=== PATIENT | male | born 1975 | race Hispanic/Latino ===

== ENCOUNTER 2018-04-23 02:28 | Inpatient (IN) | payer OTHER, SELFPAY ==
[2018-04-23] MEDS ORDERED: MORPHINE IV ONE (03:33)
[2018-04-23] MEDS ORDERED: ATROVENT IH ONE (03:33)
[2018-04-23] MEDS ORDERED: ZOFRAN IV ONE (03:33)
[2018-04-23] MEDS ORDERED: SOLU-Medrol IV ONE (03:33)
[2018-04-23] MEDS ORDERED: PROVENTIL IH ONE ×2 (03:33→05:23)
[2018-04-23] MEDS ORDERED: MAGNESIUM SULFATE 2GM/50ML 2 GM/50 ML BAG IV ONE (03:35)
[2018-04-23] MEDS ORDERED: PEPCID IV ONE (03:35)
[2018-04-23] MEDS ORDERED: TORADOL IV ONE (03:35)
--- NOTE | 2018-04-23 03:45 | XRay Report ---
FINAL REPORT PROCEDURE: XR CHEST 1V AP TECHNIQUE: Chest radiograph anteroposterior view. CPT 35808 HISTORY: sob,cough COMPARISON: No prior studies are available for comparison. FINDINGS: Heart: Normal. Mediastinum/Vessels: Normal. Lungs/Pleural space: Normal. Bony thorax: No acute osseous abnormality. Life support devices: None. IMPRESSION: No acute cardiopulmonary abnormality.
[2018-04-23 03:54] LABS: Basophils # (Auto) 0.1 K/mm3 (0.0-0.1); Basophils % (Auto) 0.9 % (0.0-1.8); Eosinophils # (Auto) 0.2 K/mm3 (0.0-0.4); Eosinophils % (Auto) 2.9 % (0.0-4.3); Hemoglobin 15.7 gm/dl (11.8-15.2); Lymphocytes % (Auto) 28.8 % (13.4-35.0); Mean Corpuscular HGB Conc 34 % (32-34); Mean Corpuscular Volume 95 fl (84-94); Monocytes # (Auto) 0.6 K/mm3 (0.0-0.8); Monocytes % (Auto) 9.2 % (0.0-7.3); Platelet Count 215 K/mm3 (140-440); Red Blood Count 4.85 M/mm3 (3.65-5.03); Red Cell Distribution Width 14.2 % (13.2-15.2)
[2018-04-23 04:04] LABS: INR 0.98 (0.87-1.13)
--- NOTE | 2018-04-23 04:31 | Emergency Department Report ---
ED Shortness of Breath HPI - General Chief Complaint: Dyspnea/Respdistress Stated Complaint: BRIANA Time Seen by Provider: 04/23/18 03:29 Source: patient, EMS, old records reviewed Mode of arrival: Stretcher Limitations: Physical Limitation - History of Present Illness Initial Comments: 43-year-old male with a past medical history of morbid obesity and hypertension presents to the Hospital complaining of coughing up green sputum last 2 days. Positive intermittent wheezing and shortness of breath. Patient complains of mid constant chest pressure radiating to his back. Patient has had similar symptoms in the past related to bronchitis and denies a history of asthma and COPD. He does smoke cigarettes. Upon EMS arrival he was satting 88-90% on room air. Saturation increased to 94% with 4 L nasal cannula he received albuterol nebulizer in route. Patient denies recent travel, calf tenderness, or unilateral leg edema. PMD: [facility] - Related Data Previous Rx's Medication Instructions Recorded Last Taken Type Pravastatin Sodium [Pravastatin] 10 mg PO QHS #30 tablet 09/26/13 Unknown Rx RX: Aspirin [Aspirin TAB] 325 mg PO QDAY #30 tablet 09/26/13 Unknown Rx RX: Famotidine [Pepcid] 20 mg PO BID #60 tablet 09/26/13 Unknown Rx RX: Lisinopril [Zestril TAB] 10 mg PO QDAY #30 tablet 09/26/13 04/22/18 Rx RX: Metoprolol [Lopressor TAB] 50 mg PO BID #60 tablet 09/26/13 04/22/18 Rx RX: amLODIPine [Norvasc] 5 mg PO QDAY #30 tablet 09/26/13 Unknown Rx Allergies Allergy/AdvReac Type Severity Reaction Status Date / Time Iodinated Contrast- Oral and Allergy Rash Verified 09/24/13 21:15 IV Dye ED Review of Systems ROS: Stated complaint: BRIANA Other details as noted in HPI Comment: All other systems reviewed and negative ED Past Medical Hx - Past Medical History Hx Hypertension: Yes Hx Congestive Heart Failure: No Hx Diabetes: No Hx Asthma: No Hx COPD: No - Surgical History Past Surgical History?: No - Social History Smoking Status: Current Every Day Smoker Substance Use Type: Alcohol - Medications Home Medications: Home Medications Medication Instructions Recorded Confirmed Last Taken Type Pravastatin Sodium [Pravastatin] 10 mg PO QHS #30 tablet 09/26/13 04/23/18 Unknown Rx RX: Aspirin [Aspirin TAB] 325 mg PO QDAY #30 tablet 09/26/13 04/23/18 Unknown Rx RX: Famotidine [Pepcid] 20 mg PO BID #60 tablet 09/26/13 04/23/18 Unknown Rx RX: Lisinopril [Zestril TAB] 10 mg PO QDAY #30 tablet 09/26/13 04/23/18 04/22/18 Rx RX: Metoprolol [Lopressor TAB] 50 mg PO BID #60 tablet 09/26/13 04/23/18 04/22/18 Rx RX: amLODIPine [Norvasc] 5 mg PO QDAY #30 tablet 09/26/13 04/23/18 Unknown Rx ED Physical Exam - General Limitations: Physical Limitation - Other Other exam information: General: No limitations, patient is alert in no acute distress Head exam: Atraumatic, normocephalic Eyes exam: Normal appearance, pupils equal reactive to light, extraocular movements intact ENT: Moist mucous membrane, normal oropharynx Neck exam: Normal inspection, full range of motion, no meningismus nontender Respiratory exam: Frequent coughing. Bilateral wheezing. Tachypnea without accessory muscle use Cardiovascular: Normal rate and rhythm, normal heart sounds Abdomen: Soft, nondistended, and nontender, with normal bowel sounds, no sumeet ound, or guarding Extremity: Full range of motion normal inspection no deformity, no calf tenderness or edema Back: Normal Inspection, full range of motion, no tenderness Neurologic: Alert, oriented x3, cranial nerves intact, no motor or sensory deficit Psychiatric: normal affect, normal mood Skin: Warm, dry, intact ED Course Vital Signs 04/23/18 04/23/18 04/23/18 02:43 02:46 02:48 Temperature 98 F Pulse Rate 98 H 94 H Pulse Rate [ Anterior Bilateral Throughout] Respiratory 15 Rate Respiratory Rate [Anterior Bilateral Throughout] Blood Pressure 113/53 O2 Sat by Pulse 94 93 94 Oximetry 04/23/18 04/23/18 04/23/18 02:57 03:00 03:15 Temperature Pulse Rate 89 92 H Pulse Rate [ Anterior Bilateral Throughout] Respiratory 26 H 20 22 Rate Respiratory Rate [Anterior Bilateral Throughout] Blood Pressure 108/55 116/63 O2 Sat by Pulse 94 92 Oximetry 04/23/18 04/23/18 04/23/18 03:30 03:45 04:00 Temperature Pulse Rate 93 H 91 H 90 Pulse Rate [ Anterior Bilateral Throughout] Respiratory 21 20 23 Rate Respiratory Rate [Anterior Bilateral Throughout] Blood Pressure 112/56 O2 Sat by Pulse Oximetry 04/23/18 04/23/18 04/23/18 04:13 04:16 04:30 Temperature Pulse Rate 96 H 95 H Pulse Rate [ 92 H Anterior Bilateral Throughout] Respiratory 18 Rate Respiratory 17 Rate [Anterior Bilateral Throughout] Blood Pressure 109/52 O2 Sat by Pulse 94 Oximetry 04/23/18 04/23/18 04/23/18 04:45 05:00 05:16 Temperature Pulse Rate 87 88 96 H Pulse Rate [ 95 H Anterior Bilateral Throughout] Respiratory 19 18 16 Rate Respiratory 20 Rate [Anterior Bilateral Throughout] Blood Pressure 120/63 120/63 110/51 O2 Sat by Pulse 93 92 86 Oximetry 04/23/18 04/23/18 04/23/18 05:30 05:45 06:00 Temperature Pulse Rate 97 H 86 93 H Pulse Rate [ Anterior Bilateral Throughout] Respiratory 22 16 24 Rate Respiratory Rate [Anterior Bilateral Throughout] Blood Pressure 103/70 110/55 102/53 O2 Sat by Pulse Oximetry 04/23/18 04/23/18 04/23/18 06:10 06:20 06:30 Temperature Pulse Rate 93 H 85 94 H Pulse Rate [ Anterior Bilateral Throughout] Respiratory 25 H 16 17 Rate Respiratory Rate [Anterior Bilateral Throughout] Blood Pressure 102/53 96/41 96/41 O2 Sat by Pulse Oximetry 04/23/18 04/23/18 04/23/18 06:40 06:49 06:50 Temperature Pulse Rate 88 92 H Pulse Rate [ 90 Anterior Bilateral Throughout] Respiratory 20 16 Rate Respiratory 17 Rate [Anterior Bilateral Throughout] Blood Pressure 116/56 117/44 O2 Sat by Pulse Oximetry 04/23/18 04/23/18 04/23/18 07:00 07:10 07:20 Temperature Pulse Rate 91 H 93 H 99 H Pulse Rate [ Anterior Bilateral Throughout] Respiratory Rate Respiratory Rate [Anterior Bilateral Throughout] Blood Pressure 117/44 96/41 96/41 O2 Sat by Pulse Oximetry 04/23/18 04/23/18 04/23/18 07:30 07:40 07:50 Temperature Pulse Rate 99 H 92 H Pulse Rate [ Anterior Bilateral Throughout] Respiratory Rate Respiratory Rate [Anterior Bilateral Throughout] Blood Pressure 96/41 117/44 117/44 O2 Sat by Pulse Oximetry 04/23/18 04/23/18 04/23/18 08:00 08:10 08:20 Temperature Pulse Rate 101 H 103 H 99 H Pulse Rate [ Anterior Bilateral Throughout] Respiratory Rate Respiratory Rate [Anterior Bilateral Throughout] Blood Pressure 117/44 117/44 117/44 O2 Sat by Pulse Oximetry 04/23/18 08:30 Temperature Pulse Rate 97 H Pulse Rate [ Anterior Bilateral Throughout] Respiratory Rate Respiratory Rate [Anterior Bilateral Throughout] Blood Pressure 117/44 O2 Sat by Pulse 99 Oximetry ED Medical Decision Making - Lab Data Result diagrams: 04/23/18 03:38 04/23/18 03:38 Lab Results 04/23/18 04/23/18 04/23/18 Range/Units 03:38 03:38 03:38 WBC 6.9 (4.5-11.0) K/mm3 RBC 4.85 (3.65-5.03) M/mm3 Hgb 15.7 H (11.8-15.2) gm/dl Hct 46.0 H (35.5-45.6) % MCV 95 H (84-94) fl MCH 32 (28-32) pg MCHC 34 (32-34) % RDW 14.2 (13.2-15.2) % Plt Count 215 (140-440) K/mm3 Lymph % (Auto) 28.8 (13.4-35.0) % [place] % (Auto) 9.2 H (0.0-7.3) % Eos % (Auto) 2.9 (0.0-4.3) % Baso % (Auto) 0.9 (0.0-1.8) % Lymph # 2.0 (1.2-5.4) K/mm3 [place] # 0.6 (0.0-0.8) K/mm3 Eos # 0.2 (0.0-0.4) K/mm3 Baso # 0.1 (0.0-0.1) K/mm3 Seg Neutrophils % 58.2 (40.0-70.0) % Seg Neutrophils # 4.0 (1.8-7.7) K/mm3 PT 13.4 (12.2-14.9) Sec. INR 0.98 (0.87-1.13) Sodium (137-145) mmol/L Potassium (3.6-5.0) mmol/L Chloride (98-107) mmol/L Carbon Dioxide (22-30) mmol/L Anion Gap mmol/L BUN (9-20) mg/dL Creatinine (0.8-1.5) mg/dL Estimated GFR ml/min BUN/Creatinine Ratio % Glucose (75-100) mg/dL Calcium (8.4-10.2) mg/dL Total Creatine Kinase 267 H (55-170) units/L CK-MB (CK-2) 7.0 H (0.0-4.0) ng/mL CK-MB (CK-2) Rel Index 2.6 (0-4) Troponin T < 0.010 (0.00-0.029) ng/mL NT-Pro-B Natriuret Pep 124.8 (0-450) pg/mL 04/23/18 Range/Units 03:38 WBC (4.5-11.0) K/mm3 RBC (3.65-5.03) M/mm3 Hgb (11.8-15.2) gm/dl Hct (35.5-45.6) % MCV (84-94) fl MCH (28-32) pg MCHC (32-34) % RDW (13.2-15.2) % Plt Count (140-440) K/mm3 Lymph % (Auto) (13.4-35.0) % [place] % (Auto) (0.0-7.3) % Eos % (Auto) (0.0-4.3) % Baso % (Auto) (0.0-1.8) % Lymph # (1.2-5.4) K/mm3 [place] # (0.0-0.8) K/mm3 Eos # (0.0-0.4) K/mm3 Baso # (0.0-0.1) K/mm3 Seg Neutrophils % (40.0-70.0) % Seg Neutrophils # (1.8-7.7) K/mm3 PT (12.2-14.9) Sec. INR (0.87-1.13) Sodium 128 L (137-145) mmol/L Potassium 4.4 (3.6-5.0) mmol/L Chloride 90.9 L (98-107) mmol/L Carbon Dioxide 24 (22-30) mmol/L Anion Gap 18 mmol/L BUN 8 L (9-20) mg/dL Creatinine 0.7 L (0.8-1.5) mg/dL Estimated GFR > 60 ml/min BUN/Creatinine Ratio 11 % Glucose 124 H (75-100) mg/dL Calcium 9.2 (8.4-10.2) mg/dL Total Creatine Kinase (55-170) units/L CK-MB (CK-2) (0.0-4.0) ng/mL CK-MB (CK-2) Rel Index (0-4) Troponin T (0.00-0.029) ng/mL NT-Pro-B Natriuret Pep (0-450) pg/mL - EKG Data -: EKG Interpreted by Ak EKG shows normal: sinus rhythm, axis (qrs 69), QRS complexes (qrsd 105), ST-T waves (no stemi) Rate: normal (93) - EKG Data When compared to previous EKG there are: no significant change - Radiology Data Radiology results: report reviewed (cxr: naf) - Medical Decision Making Patient continues to have desaturation once he is off oxygen despite receiving medications. He will be admitted to the hospital for acute bronchitis with hypoxia. - Differential Diagnosis pneumonia, bronchitis, CHF, COPD Critical Care Time: No Critical care attestation.: If time is entered above; I have spent that time in minutes in the direct care of this critically ill patient, excluding procedure time. ED Disposition Clinical Impression: Acute bronchitis, Hypoxia Disposition: OP ADMIT IP TO THIS HOSP Is pt being admited?: No Does the pt Need Aspirin: No Condition: Stable Time of Disposition: 05:25 (Dr Gifford/hosp)
[2018-04-23] MEDS ORDERED: NACL 0.9% 500 ML 500 ML IV ONE (04:39)
[2018-04-23 05:36] LABS: BUN/Creatinine Ratio 11; Blood Urea Nitrogen 8 mg/dL (9-20); Calcium 9.2 mg/dL (8.4-10.2); Hemolysis Index 10
[2018-04-23] MEDS ORDERED: SODIUM CHLORIDE FLUSH SYRINGE 10 ML IV PRN (06:16)
[2018-04-23] MEDS ORDERED: TYLENOL PO PRN (06:16)
[2018-04-23] MEDS ORDERED: ZOFRAN IV PRN (06:16)
--- NOTE | 2018-04-23 06:28 | History and Physical Report ---
History of Present Illness Date of examination: 04/23/18 History of present illness: 42-year-old man with a history of hypertension, morbid obesity, emergency room visits or shortness of breath 2 days. He complains of cough productive of green phlegm, wheezing. Also complaining of chest pain in the epigastric area which he describes a pressure-like sensation, intermittent, unable to say how long it lasts for, radiating to the back, intensity 5/10, worse with coughing. Admits to diaphoresis, no nausea vomiting, palpitation Review of systems Constitutional: no weight loss, chills, fever Ears, eyes, nose, mouth and throat: no nasal congestion, no nasal discharge, no sinus pressure, no vision change, no red eye. Neck: No neck pain or rigidity. Cardiovascular: no palpitations, chest pain Respiratory: +cough, shortness of breath Gastrointestinal: no hematochezia, abdominal pain Genitourinary : no frequency , no hematuria Musculoskeletal: no joint swelling or muscle ache Integumentary: no rash, no pruritis Neurological: no parathesias, no focal weakness Endocrine: no cold or heat intolerance, no polyuria or polydipsia Hematologic/Lymphatic: no easy bruising, no easy bleeding, no gland swelling Allergic/Immunologic: no urticaria, no angioedema. PAST MEDICAL HISTORY:hypertension, morbid obesity PAST SURGICAL HISTORY: None SOCIAL HISTORY: Denies alcohol, drugs, smoke 2 packs a day FAMILY HISTORY: Hypertension Medications and Allergies Allergies Allergy/AdvReac Type Severity Reaction Status Date / Time Iodinated Contrast- Oral and Allergy Rash Verified 09/24/13 21:15 IV Dye Home Medications Medication Instructions Recorded Confirmed Last Taken Type RX: Aspirin [Aspirin TAB] 325 mg PO QDAY #30 tablet 09/26/13 04/23/18 Unknown Rx RX: Famotidine [Pepcid] 20 mg PO BID #60 tablet 09/26/13 04/23/18 Unknown Rx RX: Lisinopril [Zestril TAB] 10 mg PO QDAY #30 tablet 09/26/13 04/23/18 04/22/18 Rx RX: Pravastatin Sodium 10 mg PO QHS #30 tablet 09/26/13 04/23/18 Unknown Rx [Pravastatin] RX: amLODIPine [Norvasc] 5 mg PO QDAY #30 tablet 09/26/13 04/23/18 Unknown Rx Prednisone [predniSONE 10 mg 10 mg PO .TAPER #1 tab.ds.pk 04/25/18 Unknown Rx (6-Day Pack, 21 Tabs)] RX: ALBUTEROL Inhaler(NF) 2 puff IH QID PRN #1 inha 04/25/18 Unknown Rx [VENTOLIN Inhaler(NF)] RX: Benzonatate [Tessalon Perles] 100 mg PO Q8HR #30 capsule 04/25/18 Unknown Rx RX: Nicotine [Habitrol] 21 mg TD QDAY #30 patch 04/25/18 Unknown Rx Active Meds: Active Medications Acetaminophen (Tylenol) 650 mg PO Q4H PRN PRN Reason: Pain MILD(1-3)/Fever >100.5/MERAZ Albuterol/Ipratropium (Duoneb *Not For Prn Use*) 1 ampul IH Q6HRT [facility] Enoxaparin Sodium (Lovenox) 30 mg SUB-Q QDAY [facility] Methylprednisolone Sodium Succinate (Solu-Medrol) 125 mg IV Q6H [facility] Ondansetron HCl (Zofran) 4 mg IV Q8H PRN PRN Reason: Nausea And Vomiting Sodium Chloride (Sodium Chloride Flush Syringe 10 Ml) 10 ml IV BID S[facility]IAGO Sodium Chloride (Sodium Chloride Flush Syringe 10 Ml) 10 ml IV PRN PRN PRN Reason: LINE FLUSH Exam - Physical Exam Narrative exam: General Apperance: The patient lying in bed, breathing comfortable HEENT: Normocephalic, atraumatic. Pupils equally round and reactive to light, EOMI, no sclericterus or JVD or thyromegaly or nodule. , no carotid bruit, mucous membranes moist, no exudate or erythema Heart: S1-S2, regular is rhythm Lungs: Wheezing bilaterally, breathing comfortable Abdomen: Positive bowel sounds, soft, nontender, nondistended, no organomegaly Extremities: No edema cyanosis clubbing Skin: no rash, nodule, warm and dry Neuro: cranial nerves 2-12 intact, speech is fluent, motor/sensory intact - Constitutional Vitals: Temp Pulse Resp BP Pulse Ox 98 F 86 16 110/55 86 04/23/18 02:48 04/23/18 05:45 04/23/18 05:45 04/23/18 05:45 04/23/18 05:16 Results - Labs CBC & Chem 7: 04/25/18 05:25 04/25/18 05:25 Labs: Abnormal lab results 04/23/18 04/23/18 04/23/18 Range/Units 03:38 03:38 03:38 Hgb 15.7 H (11.8-15.2) gm/dl Hct 46.0 H (35.5-45.6) % MCV 95 H (84-94) fl [place] % (Auto) 9.2 H (0.0-7.3) % Sodium 128 L (137-145) mmol/L Chloride 90.9 L (98-107) mmol/L BUN 8 L (9-20) mg/dL Creatinine 0.7 L (0.8-1.5) mg/dL Glucose 124 H (75-100) mg/dL Total Creatine Kinase 267 H (55-170) units/L CK-MB (CK-2) 7.0 H (0.0-4.0) ng/mL - Imaging and Cardiology EKG: image reviewed Chest x-ray: report reviewed Assessment and Plan Assessment Acute bronchitis Hyponatremia Chest pain Morbid morbid obesity Plan Admit to medicine High-dose steroids, breathing treatments, Zithromax Cardiac enzymes, stress test DVT prophylaxis
[2018-04-23 07:06] LABS: Creatine Kinase MB 6.2 ng/mL (0.0-4.0)
--- NOTE | 2018-04-23 07:38 | Progress Note ---
Assessment and Plan Assessment and plan: Patient is a Patient is a 42-year-old man with a history of hypertension, dyslipidemia, morbid obesity and Tobacco dependency who presents this morning to [facility] ED with SOB x 2 days. 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 Follow-up on current diagnosis of SOB and chest pains. Chest pains is due to excessive coughing, Overnight uneventful. Patient denies any nausea/vomiting or severe headaches. Imaging, nursing note, chart, labs and old chart reviewed. Discussed with patient. Hospitalist Physical - Physical exam Narrative exam: Gen: Morbid Obese, bmi 49.5Cushingoid vs blue bloater appearance, ill appearing, on VM 50%, NAD, Awake, Alert, Orientated x 3 HEENT: NCAT, EOMI, PERRL, OP Clear Neck: supple, no adenopathy, no thyromegaly, no JVD CVS/Heart: RRR, normal S1S2, pulses present bilaterally Chest/Lungs: diminished bs bilateral, Symmetrical chest expansion, good air entry bilaterally, reproducible substernal cw tenderness GI/Abdomen: soft, abd striae, NTND, good bowel sounds, no guarding or rebound /Bladder: no suprapubic tenderness, no CVA or paraspinal tenderness Extermity/Skin: no c/c/e, no obvious rash MSK: FROM x 4 Neuro: CN 2-12 grossly intact, no new focal deficits Psych: calm - Constitutional Vitals: Temp Pulse Resp BP Pulse Ox 98 F 90 17 110/55 86 04/23/18 02:48 04/23/18 06:49 04/23/18 06:49 04/23/18 05:45 04/23/18 05:16 Results - Labs CBC & Chem 7: 04/23/18 03:38 04/23/18 03:38 Labs: Laboratory Last Values WBC 6.9 K/mm3 (4.5-11.0) 04/23/18 03:38 RBC 4.85 M/mm3 (3.65-5.03) 04/23/18 03:38 Hgb 15.7 gm/dl (11.8-15.2) H 04/23/18 03:38 Hct 46.0 % (35.5-45.6) H 04/23/18 03:38 MCV 95 fl (84-94) H 04/23/18 03:38 MCH 32 pg (28-32) 04/23/18 03:38 MCHC 34 % (32-34) 04/23/18 03:38 RDW 14.2 % (13.2-15.2) 04/23/18 03:38 Plt Count 215 K/mm3 (140-440) 04/23/18 03:38 Lymph % (Auto) 28.8 % (13.4-35.0) 04/23/18 03:38 [place] % (Auto) 9.2 % (0.0-7.3) H 04/23/18 03:38 Eos % (Auto) 2.9 % (0.0-4.3) 04/23/18 03:38 Baso % (Auto) 0.9 % (0.0-1.8) 04/23/18 03:38 Lymph # 2.0 K/mm3 (1.2-5.4) 04/23/18 03:38 [place] # 0.6 K/mm3 (0.0-0.8) 04/23/18 03:38 Eos # 0.2 K/mm3 (0.0-0.4) 04/23/18 03:38 Baso # 0.1 K/mm3 (0.0-0.1) 04/23/18 03:38 Seg Neutrophils % 58.2 % (40.0-70.0) 04/23/18 03:38 Seg Neutrophils # 4.0 K/mm3 (1.8-7.7) 04/23/18 03:38 PT 13.4 Sec. (12.2-14.9) 04/23/18 03:38 INR 0.98 (0.87-1.13) 04/23/18 03:38 Sodium 128 mmol/L (137-145) L 04/23/18 03:38 Potassium 4.4 mmol/L (3.6-5.0) 04/23/18 03:38 Chloride 90.9 mmol/L (98-107) L 04/23/18 03:38 Carbon Dioxide 24 mmol/L (22-30) 04/23/18 03:38 Anion Gap 18 mmol/L 04/23/18 03:38 BUN 8 mg/dL (9-20) L 04/23/18 03:38 Creatinine 0.7 mg/dL (0.8-1.5) L 04/23/18 03:38 Estimated GFR > 60 ml/min 04/23/18 03:38 BUN/Creatinine Ratio 11 % 04/23/18 03:38 Glucose 124 mg/dL (75-100) H 04/23/18 03:38 Calcium 9.2 mg/dL (8.4-10.2) 04/23/18 03:38 Total Creatine Kinase 267 units/L (55-170) H 04/23/18 03:38 CK-MB (CK-2) 6.2 ng/mL (0.0-4.0) H 04/23/18 06:36 CK-MB (CK-2) Rel Index 2.6 (0-4) 04/23/18 03:38 Troponin T < 0.010 ng/mL (0.00-0.029) 04/23/18 06:36 NT-Pro-B Natriuret Pep 124.8 pg/mL (0-450) 04/23/18 03:38
[2018-04-23] MEDS ORDERED: DUONEB *Not for PRN Use IH ONE (07:47)
[2018-04-23] MEDS: DUONEB *Not for PRN Use IH SCH ×3 (07:53→20:51)
--- NOTE | 2018-04-23 08:25 | Consultation ---
History of Present Illness - Reason for Consult Consult date: 04/23/18 hyponatremia Requesting physician: MONE EL - History of Present Illness 42-year-old man with a history of hypertension, morbid obesity, emergency room visits or shortness of breath 2 days. He complains of cough productive of green phlegm, wheezing. Also complaining of chest pain in the epigastric area which he describes a pressure-like sensation, intermittent, unable to sell along the lesser, radiating to the back, intensity 5/10, worse with coughing. Admits to diaphoresis, no nausea vomiting, palpitation. Consult requested because of hyponatremia Past History Past Medical History: COPD, hypertension Past Surgical History: No surgical history Social history: other (patient is a smoker) Family history: no significant family history Medications and Allergies Allergies Allergy/AdvReac Type Severity Reaction Status Date / Time Iodinated Contrast- Oral and Allergy Rash Verified 09/24/13 21:15 IV Dye Home Medications Medication Instructions Recorded Confirmed Last Taken Type Aspirin [Aspirin TAB] 325 mg PO QDAY #30 tablet 09/26/13 04/23/18 Unknown Rx Famotidine [Pepcid] 20 mg PO BID #60 tablet 09/26/13 04/23/18 Unknown Rx Lisinopril [Zestril TAB] 10 mg PO QDAY #30 tablet 09/26/13 04/23/18 04/22/18 Rx Metoprolol [Lopressor TAB] 50 mg PO BID #60 tablet 09/26/13 04/23/18 04/22/18 Rx Pravastatin Sodium [Pravastatin] 10 mg PO QHS #30 tablet 09/26/13 04/23/18 Unknown Rx amLODIPine [Norvasc] 5 mg PO QDAY #30 tablet 09/26/13 04/23/18 Unknown Rx Active Meds: Active Medications Acetaminophen (Tylenol) 650 mg PO Q4H PRN PRN Reason: Pain MILD(1-3)/Fever >100.5/MERAZ Albuterol/Ipratropium (Duoneb *Not For Prn Use*) 1 ampul IH Q6HRT [facility] Last Admin: 04/23/18 07:53 Dose: Not Given Documented by: Benzonatate (Tessalon Perles) 100 mg PO Q8HR [facility] Enoxaparin Sodium (Lovenox) 40 mg SUB-Q QDAY@1000 S[facility]O Sodium Chloride (Nacl 0.9% 1000 Ml) 1,000 mls @ 75 mls/hr IV DIRECT [facility]O Methylprednisolone Sodium Succinate (Solu-Medrol) 40 mg IV Q8HR S[facility]O Nicotine (Habitrol) 21 mg TD QDAY [facility] Ondansetron HCl (Zofran) 4 mg IV Q8H PRN PRN Reason: Nausea And Vomiting Sodium Chloride (Sodium Chloride Flush Syringe 10 Ml) 10 ml IV BID S[place]IAGO Sodium Chloride (Sodium Chloride Flush Syringe 10 Ml) 10 ml IV PRN PRN PRN Reason: LINE FLUSH Review of Systems All systems: negative (negative except as noted above) Exam - Vital Signs Vital signs: Vital Signs Pulse Ox 94 04/23/18 02:43 - General Appearance General appearance: well-developed, well-nourished, appears stated age, obese EENT: ATNC, PERRL, mucous membranes moist Neck: Present: neck supple, trachea midline. Absent: JVD/HJR, Masses Respiratory: Wheezes (bilateral wheezing) Heart: regular, normal heart rate, S1S2, no murmurs Gastrointestinal: Present: normal, normoactive bowel sounds Integumentary: other (no edema) Results - Lab Results 04/23/18 03:38 04/23/18 03:38 Most recent lab results Calcium 9.2 mg/dL (8.4-10.2) 04/23/18 03:38 Assessment and Plan Impression * Hyponatremia. Patient is clinically euvolemic * Shortness of breath. Most likely secondary to COPD * Chest pain * Hypertension * Obesity Recommendation * Suspect patient has underlying SIADH. * Shall do hyponatremia workup * Restrict free water intake * Avoid hydrochlorothiazide and other medications that can aggravate hyponatremia * Monitor fluid status and electrolytes closely * Thank you very much for the consultation. Shall follow along with you
[2018-04-23] MEDS: TESSALON PERLES PO SCH ×3 (08:27→21:53)
[2018-04-23] MEDS ORDERED: SOLU-Medrol IV SCH (09:00)
[2018-04-23] MEDS ORDERED: LEXISCAN IV ONE ×2 (09:28→09:30)
[2018-04-23] MEDS ORDERED: LOVENOX SUB-Q SCH (10:00)
[2018-04-23 10:54] LABS: Creatine Kinase MB 6.7 ng/mL (0.0-4.0)
[2018-04-23] MEDS: HABITROL TD SCH (12:03)
[2018-04-23] MEDS: LOVENOX SUB-Q SCH (12:04)
[2018-04-23] MEDS: SOLU-Medrol IV SCH ×2 (12:04→21:53)
[2018-04-23] MEDS: SODIUM CHLORIDE FLUSH SYRINGE 10 ML IV SCH ×2 (12:05→21:54)
--- NOTE | 2018-04-23 12:24 | Consultation ---
History of Present Illness Consult date: 04/23/18 Reason for consult: dyspnea, chest pain, COPD History of present illness: 43-year-old male who presented to the ED with 3-4 days history of progressive chest tightness, chest pain, associated with shortness of breath and wheezing. The patient reports chest pain associated with persistent coughing episodes. He reports yellow to green colored phlegm. Chest pain reported has precordial which some chest tightness. He is an active smoker 2 packs per day for the last 20 years and was smoking up to the time of admission. He denies fever or i nfluenza-like illness symptoms. He does report prior episodes of vigorous coughing prior to this. Episodes were strong enough for him to pass out. Also reports sleep history that appeared to be consistent with sleep apnea- reportedly snoring heavily, fell asleep during his cardiac scan with snoring and choking. Also poor sleep. He denies prior history of asthma or COPD. Ask to evaluate. Follows at the [place] [facility]. Past History Past Medical History: COPD, hypertension Past Surgical History: No surgical history Social history: other (patient is a smoker) Family history: no significant family history Medications and Allergies Allergies Allergy/AdvReac Type Severity Reaction Status Date / Time Iodinated Contrast- Oral and Allergy Rash Verified 09/24/13 21:15 IV Dye Home Medications Medication Instructions Recorded Confirmed Last Taken Type Aspirin [Aspirin TAB] 325 mg PO QDAY #30 tablet 09/26/13 04/23/18 Unknown Rx Famotidine [Pepcid] 20 mg PO BID #60 tablet 09/26/13 04/23/18 Unknown Rx Lisinopril [Zestril TAB] 10 mg PO QDAY #30 tablet 09/26/13 04/23/18 04/22/18 Rx Metoprolol [Lopressor TAB] 50 mg PO BID #60 tablet 09/26/13 04/23/18 04/22/18 Rx Pravastatin Sodium [Pravastatin] 10 mg PO QHS #30 tablet 09/26/13 04/23/18 Unknown Rx amLODIPine [Norvasc] 5 mg PO QDAY #30 tablet 09/26/13 04/23/18 Unknown Rx Active Meds: Active Medications Acetaminophen (Tylenol) 650 mg PO Q4H PRN PRN Reason: Pain MILD(1-3)/Fever >100.5/MERAZ Albuterol/Ipratropium (Duoneb *Not For Prn Use*) 1 ampul IH Q6HRT [facility] Last Admin: 04/23/18 07:53 Dose: Not Given Documented by: Benzonatate (Tessalon Perles) 100 mg PO Q8HR [facility] Last Admin: 04/23/18 08:27 Dose: Not Given Documented by: Enoxaparin Sodium (Lovenox) 40 mg SUB-Q QDAY@1000 [facility] Last Admin: 04/23/18 12:04 Dose: 40 mg Documented by: Sodium Chloride (Nacl 0.9% 1000 Ml) 1,000 mls @ 75 mls/hr IV DIRECT [facility] Methylprednisolone Sodium Succinate (Solu-Medrol) 40 mg IV Q8H [facility] Last Admin: 04/23/18 12:04 Dose: 40 mg Documented by: Nicotine (Habitrol) 21 mg TD QDAY [facility] Last Admin: 04/23/18 12:03 Dose: 21 mg Documented by: Ondansetron HCl (Zofran) 4 mg IV Q8H PRN PRN Reason: Nausea And Vomiting Sodium Chloride (Sodium Chloride Flush Syringe 10 Ml) 10 ml IV BID [facility] Last Admin: 04/23/18 12:05 Dose: 10 ml Documented by: Sodium Chloride (Sodium Chloride Flush Syringe 10 Ml) 10 ml IV PRN PRN PRN Reason: LINE FLUSH Physical Examination Vital signs: Vital Signs Pulse Ox 94 04/23/18 02:43 General appearance: no acute distress, other (morbidly obese) Eyes: non-icteric ENT: oropharynx moist, other (Mallampati 3-4) Neck: supple, no JVD Ascultation: Bilateral: diminished breath sounds, wheezes Cardiovascular: regular rate and rhythm Gastrointestinal: normoactive bowel sounds, non-distended Integumentary: normal Extremities: no cyanosis, no edema Gait: normal gait normal mental status, non-focal exam, pupils equal and round, CN II-XII normal, motor strength normal and mood appropriate, affect normal Results - Laboratory Findings CBC and BMP: 04/23/18 03:38 04/23/18 03:38 PT/INR, D-dimer PT 13.4 Sec. (12.2-14.9) 04/23/18 03:38 INR 0.98 (0.87-1.13) 04/23/18 03:38 Abnormal lab findings: Abnormal Labs 04/23/18 04/23/18 04/23/18 03:38 03:38 03:38 Hgb 15.7 H Hct 46.0 H MCV 95 H [place] % (Auto) 9.2 H Sodium 128 L Chloride 90.9 L BUN 8 L Creatinine 0.7 L Glucose 124 H Total Creatine Kinase 267 H CK-MB (CK-2) 7.0 H 04/23/18 04/23/18 06:36 10:07 Hgb Hct MCV [place] % (Auto) Sodium Chloride BUN Creatinine Glucose Total Creatine Kinase 262 H CK-MB (CK-2) 6.2 H 6.7 H - Diagnostic Findings Chest x-ray: report reviewed, image reviewed Assessment and Plan COPD with exacerbation Acute exacerbation of chronic bronchitis Chest pain. Under evaluation by cardiology Hyponatremia. Nephrology following, SIADH suspected Suspected SDB/ANGELIA Morbid obesity Hypertension Recommendations Complete cardiac evaluation for CAD, atypical chest pain Albuterol 2.5 milligram nebulizations every 4-6 hours with or without ipratropium Solu-Medrol 40-60 mg IV every 6-8 hours Consider 5 days of Rocephin or suitable equivalent Oxygen support via nasal cannula or mask to maintain oximetry over 92% Additional evaluation for weight reduction program Smoking cessation discussed in detail. When the further evaluation as an outpatient both for COPD and for ANGELIA. DVT prophylaxis Findings were discussed with the patient in detail. All questions answered. Smoking cessation was strongly encouraged, initial intervention Thanks
[2018-04-23 15:30] LABS: Creatine Kinase MB 6.4 ng/mL (0.0-4.0)
--- NOTE | 2018-04-23 17:13 | Treadmill Report ---
THALLIUM STRESS TEST LEFT VENTRICLE: Left ventricular chamber size is within normal spread. Perfusion study demonstrates homogeneous uptake of the tracer in all segments, no significant perfusion defects identified. Gated analysis demonstrates normal left ventricular systolic function, ejection fraction greater than 70%. CONCLUSION: Normal myocardial perfusion study. JOB# [id number] CA/NTS
[2018-04-23 18:02] LABS: Creatine Kinase MB 6.2 ng/mL (0.0-4.0)
[2018-04-23] MEDS: LOPRESSOR PO SCH ×2 (18:09→21:53)
[2018-04-23] MEDS: NACL 0.9% 1000 ML 1,000 ML IV SCH (18:10)
[2018-04-23 22:42] LABS: Osmolality,Urine 589 Mosm/kg
[2018-04-23 23:26] LABS: Creatine Kinase MB 5.1 ng/mL (0.0-4.0)
[2018-04-24] MEDS ORDERED: PROVENTIL IH PRN (03:20)
[2018-04-24] MEDS: SOLU-Medrol IV SCH ×3 (03:30→21:57)
[2018-04-24] MEDS: DUONEB *Not for PRN Use IH SCH ×4 (03:48→20:15)
[2018-04-24] MEDS: TESSALON PERLES PO SCH ×3 (05:55→21:53)
[2018-04-24] MEDS: NACL 0.9% 1000 ML 1,000 ML IV SCH (05:55)
[2018-04-24 06:24] LABS: Hemoglobin 15.9 gm/dl (11.8-15.2); Mean Corpuscular HGB Conc 33 % (32-34); Mean Corpuscular Volume 97 fl (84-94); Platelet Count 229 K/mm3 (140-440); Red Blood Count 4.96 M/mm3 (3.65-5.03); Red Cell Distribution Width 14.5 % (13.2-15.2)
[2018-04-24 06:43] LABS: BUN/Creatinine Ratio 16; Blood Urea Nitrogen 8 mg/dL (9-20); Calcium 9.2 mg/dL (8.4-10.2); Hemolysis Index 5
[2018-04-24 08:34] LABS: Band Neutrophils # (Manual) 0.4 K/mm3; Basophils % (Manual) 0 % (0.0-1.8); Eosinophils % (Manual) 0 % (0.0-4.3); Total Cells Counted 100
[2018-04-24 08:35] LABS: Anisocytosis 1+; Platelet Estimate Consistent w Auto
--- NOTE | 2018-04-24 08:55 | Progress Note ---
Assessment and Plan Impression * Hyponatremia. Patient is clinically euvolemic * Shortness of breath. Most likely secondary to COPD * Chest pain * Hypertension * Obesity * Hyperkalemia Recommendation * Hyponatremia is much improved. 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 * Discontinue IV saline. Continue free water restriction * Administer Kayexalate. Cortisol level would not be useful as patient is already on intravenous steroids * Avoid hydrochlorothiazide and other medications that can aggravate hyponatremia * Monitor fluid status and electrolytes closely Subjective Date of service: 04/24/18 Interval history: Patient feels better today. Shortness of breath is improving. Denies any nausea or vomiting. No more chest pain Objective - Vital Signs Vital signs: Vital Signs - 12hr 04/23/18 04/23/18 04/24/18 21:00 22:51 03:12 Temperature 98.8 F Pulse Rate 94 H Pulse Rate [ 92 H Anterior Bilateral Throughout] Respiratory 20 Rate Respiratory 18 Rate [Anterior Bilateral Throughout] Blood Pressure 165/87 O2 Sat by Pulse 95 96 Oximetry 04/24/18 04/24/18 04/24/18 05:02 07:20 07:27 Temperature 98.7 F Pulse Rate 88 Pulse Rate [ 95 H 84 Anterior Bilateral Throughout] Respiratory 20 Rate Respiratory 18 16 Rate [Anterior Bilateral Throughout] Blood Pressure 149/72 O2 Sat by Pulse 87 Oximetry 04/24/18 08:47 Temperature Pulse Rate Pulse Rate [ Anterior Bilateral Throughout] Respiratory Rate Respiratory Rate [Anterior Bilateral Throughout] Blood Pressure O2 Sat by Pulse 94 Oximetry - General Appearance General appearance: well-developed, well-nourished, appears stated age, obese EENT: PERRL, mucous membranes moist Neck: no JVD, no thyromegaly, no carotid bruit, supple Respiratory: Present: Ronchi (bilateral scattered rhonchi) Cardiology: regular, normal heart rate, S1S2, no murmurs Gastrointestinal: normal, normoactive bowel sounds Integumentary: no rash, other (no edema) - Lab 04/24/18 04:28 04/24/18 04:28 Most recent lab results Calcium 9.2 mg/dL (8.4-10.2) 04/24/18 04:28 Urine Sodium 80 mmol/L 04/23/18 21:52 Medications & Allergies - Medications Allergies/Adverse Reactions: Allergies Iodinated Contrast- Oral and IV Dye Allergy (Verified 09/24/13 21:15) Rash Home Medications: Home Medications Medication Instructions Recorded Confirmed Last Taken Type Aspirin [Aspirin TAB] 325 mg PO QDAY #30 tablet 09/26/13 04/23/18 Unknown Rx Famotidine [Pepcid] 20 mg PO BID #60 tablet 09/26/13 04/23/18 Unknown Rx Lisinopril [Zestril TAB] 10 mg PO QDAY #30 tablet 09/26/13 04/23/18 04/22/18 Rx Metoprolol [Lopressor TAB] 50 mg PO BID #60 tablet 09/26/13 04/23/18 04/22/18 Rx Pravastatin Sodium [Pravastatin] 10 mg PO QHS #30 tablet 09/26/13 04/23/18 Unknown Rx amLODIPine [Norvasc] 5 mg PO QDAY #30 tablet 09/26/13 04/23/18 Unknown Rx Active Medications: Generic Name Dose Route Start Last Admin Trade Name Freq PRN Reason Stop Dose Admin Acetaminophen 650 mg 04/23/18 06:16 Tylenol PO Q4H PRN Pain MILD(1-3)/Fever >100.5/MERAZ Albuterol 2.5 mg 04/24/18 03:20 Proventil IH Q4HRT PRN Shortness Of Breath Albuterol/Ipratropium 1 ampul 04/23/18 08:00 04/24/18 07:20 Duoneb *Not For Prn Use* IH 1 ampul Q6HRT [facility] Administration Benzonatate 100 mg 04/23/18 08:00 04/24/18 05:55 Tessalon Perles PO 100 mg Q8HR [facility] Administration Enoxaparin Sodium 40 mg 04/23/18 10:00 04/23/18 12:04 Lovenox SUB-Q 40 mg QDAY@1000 [facility] Administration Sodium Chloride 1,000 mls @ 75 mls/hr 04/23/18 07:00 04/24/18 05:55 Nacl 0.9% 1000 Ml IV 75 mls/hr DIRECT [facility] Administration Methylprednisolone Sodium Succinate 40 mg 04/23/18 12:00 04/24/18 03:30 Solu-Medrol IV 40 mg Q8H [facility] Administration Metoprolol Tartrate 50 mg 04/23/18 18:00 04/23/18 21:53 Lopressor PO 50 mg BID [facility] Administration Nicotine 21 mg 04/23/18 10:00 04/23/18 12:03 Habitrol TD 21 mg QDAY [facility] Administration Ondansetron HCl 4 mg 04/23/18 06:16 Zofran IV Q8H PRN Nausea And Vomiting Sodium Chloride 10 ml 04/23/18 10:00 04/23/18 21:54 Sodium Chloride Flush Syringe 10 Ml IV 10 ml BID [facility] Administration Sodium Chloride 10 ml 04/23/18 06:16 Sodium Chloride Flush Syringe 10 Ml IV PRN PRN LINE FLUSH
[2018-04-24] MEDS: LOPRESSOR PO SCH ×2 (09:22→22:02)
[2018-04-24] MEDS: HABITROL TD SCH (09:22)
[2018-04-24] MEDS: LOVENOX SUB-Q SCH (09:22)
[2018-04-24] MEDS: SODIUM CHLORIDE FLUSH SYRINGE 10 ML IV SCH ×2 (09:22→22:08)
--- NOTE | 2018-04-24 11:15 | Progress Note ---
Assessment and Plan COPD with exacerbation.Controlled Acute exacerbation of chronic bronchitis Chest pain. Under evaluation by cardiology Hyponatremia. Nephrology following, SIADH suspected Suspected SDB/ANGELIA Morbid obesity Hypertension Hyperkalemia Recommendations Complete cardiac evaluation for CAD, atypical chest pain Albuterol 2.5 milligram nebulizations every 4-6 hours with or without ipratropium Consider 5 days of Rocephin or suitable equivalent Ambulate on r/a tyrone Oxygen support evaluation PO Prednisone 40 mg with 5-7 days taper down Smoking cessation discussed in detail. OPD f/u PFT and PSG for COPD and ANGELIA evaluation. DVT prophylaxis Findings were discussed with the patient in detail. All questions answered. Smoking cessation was strongly encouraged, initial intervention Thanks Subjective Date of service: 04/24/18 Principal diagnosis: COPD exacerbation,ANGELIA,hyponatremia Interval history: No SOB nor wheezing. Denies chest pain Objective Vital Signs - 12hr 04/24/18 04/24/18 04/24/18 03:12 05:02 07:20 Temperature 98.7 F Pulse Rate 88 Pulse Rate [ 95 H Anterior Bilateral Throughout] Respiratory 20 Rate Respiratory 18 Rate [Anterior Bilateral Throughout] Blood Pressure 149/72 O2 Sat by Pulse 96 87 Oximetry 04/24/18 04/24/18 04/24/18 07:27 08:47 09:22 Temperature Pulse Rate 88 Pulse Rate [ 84 Anterior Bilateral Throughout] Respiratory Rate Respiratory 16 Rate [Anterior Bilateral Throughout] Blood Pressure 140/78 O2 Sat by Pulse 94 Oximetry Constitutional: no acute distress, other (morbidly obese,plethoric fascies) Eyes: non-icteric ENT: oropharynx moist, other (Mallampati 3-4) Neck: supple, no JVD Ascultation: Bilateral: clear, diminished breath sounds Cardiovascular: regular rate and rhythm Gastrointestinal: normoactive bowel sounds, non-distended Integumentary: normal Extremities: no cyanosis, no edema Neurologic: normal mental status, non-focal exam, pupils equal and round, CN II- XII normal, motor strength normal and Psychiatric: mood appropriate, affect normal CBC and BMP: 04/24/18 04:28 04/24/18 04:28 ABG, PT/INR, D-dimer: PT/INR, D-dimer PT 13.4 Sec. (12.2-14.9) 04/23/18 03:38 INR 0.98 (0.87-1.13) 04/23/18 03:38 Abnormal lab findings: Abnormal Labs 04/23/18 04/23/18 04/23/18 03:38 03:38 03:38 WBC Hgb 15.7 H Hct 46.0 H MCV 95 H [place] % (Auto) 9.2 H Seg Neuts % (Manual) Lymphocytes % (Manual) Seg Neutrophils # Man Lymphocytes # (Manual) Sodium 128 L Potassium Chloride 90.9 L BUN 8 L Creatinine 0.7 L Glucose 124 H Total Creatine Kinase 267 H CK-MB (CK-2) 7.0 H 04/23/18 04/23/18 04/23/18 06:36 10:07 14:54 WBC Hgb Hct MCV [place] % (Auto) Seg Neuts % (Manual) Lymphocytes % (Manual) Seg Neutrophils # Man Lymphocytes # (Manual) Sodium Potassium Chloride BUN Creatinine Glucose Total Creatine Kinase 262 H 266 H 241 H CK-MB (CK-2) 6.2 H 6.7 H 6.4 H 04/23/18 04/23/18 04/24/18 17:19 22:45 04:28 WBC 14.5 H Hgb 15.9 H Hct 48.0 H MCV 97 H [place] % (Auto) Seg Neuts % (Manual) 87.0 H Lymphocytes % (Manual) 6.0 L Seg Neutrophils # Man 12.6 H Lymphocytes # (Manual) 0.9 L Sodium Potassium Chloride BUN Creatinine Glucose Total Creatine Kinase 235 H 218 H CK-MB (CK-2) 6.2 H 5.1 H 04/24/18 04:28 WBC Hgb Hct MCV [place] % (Auto) Seg Neuts % (Manual) Lymphocytes % (Manual) Seg Neutrophils # Man Lymphocytes # (Manual) Sodium 135 L D Potassium 5.4 H D Chloride 96.6 L BUN 8 L Creatinine 0.5 L Glucose 148 H Total Creatine Kinase CK-MB (CK-2)
--- NOTE | 2018-04-24 11:27 | Progress Note ---
Assessment and Plan Assessment and plan: Patient is a Patient is a 42-year-old man with a history of hypertension, dyslipidemia, morbid obesity and Tobacco dependency who presents this morning to [facility] ED with SOB x 2 days. * pCXR reported no acute cardiopulmonary process Suspected Acute hypoxic respiratory failure, poa on VM 50%, EMS reported a low pulse ox of 88% RA: continue o2 therapy and nebs, consulted Pulmonology Acute bronchitis: treat with abx and nebs, utility of steroids Hyperkalemia; Kayexalate. Follow electrolytes Moderate to severe Hyponatremia, hypovolemia: treat with ivf, repeat in am Cushingoid appearance and hyponatremia: consulted Nephrology, ?steroids Chest pain, atypical, related to coughing most likely, father of [place] though: Cardiac enzymes, stress test negative Morbid obesity, bmi 49.5; Tobacco dependency (~2 ppd): chief counsel on stopping, offer and ordered nicotine patch DVT prophylaxis: sq lovenox History Interval history: Patient seen and examined medical records reviewed No new Events reported by the nursing staff Admitted with acute on chronic respiratory failure COPD exacerbation Patient feels slightly better Vital signs reviewed Hospitalist Physical - Constitutional Vitals: Temp Pulse Resp BP Pulse Ox 98.7 F 88 16 140/78 94 04/24/18 05:02 04/24/18 09:22 04/24/18 07:27 04/24/18 09:22 04/24/18 08:47 General appearance: Present: mild distress, well-nourished, obese (morbidly obese) - EENT Eyes: Present: PERRL, EOM intact - Neck Neck: Present: supple, normal ROM - Respiratory Respiratory effort: labored Respiratory: bilateral: diminished, rhonchi, negative: rales, wheezing - Cardiovascular Rhythm: regular Heart Sounds: Present: S1 & S2 - Extremities Extremities: no ischemia Extremity abnormal: edema - Abdominal General gastrointestinal: soft, non-tender, non-distended, normal bowel sounds - Integumentary Integumentary: Present: clear, warm - Psychiatric Psychiatric: appropriate mood/affect, cooperative - Neurologic Neurologic: moves all extremities Results - Labs CBC & Chem 7: 04/24/18 04:28 04/24/18 04:28 Labs: Laboratory Last Values WBC 14.5 K/mm3 (4.5-11.0) H 04/24/18 04:28 RBC 4.96 M/mm3 (3.65-5.03) 04/24/18 04:28 Hgb 15.9 gm/dl (11.8-15.2) H 04/24/18 04:28 Hct 48.0 % (35.5-45.6) H 04/24/18 04:28 MCV 97 fl (84-94) H 04/24/18 04:28 MCH 32 pg (28-32) 04/24/18 04:28 MCHC 33 % (32-34) 04/24/18 04:28 RDW 14.5 % (13.2-15.2) 04/24/18 04:28 Plt Count 229 K/mm3 (140-440) 04/24/18 04:28 Lymph % (Auto) 28.8 % (13.4-35.0) 04/23/18 03:38 [place] % (Auto) 9.2 % (0.0-7.3) H 04/23/18 03:38 Eos % (Auto) 2.9 % (0.0-4.3) 04/23/18 03:38 Baso % (Auto) 0.9 % (0.0-1.8) 04/23/18 03:38 Lymph # 2.0 K/mm3 (1.2-5.4) 04/23/18 03:38 [place] # 0.6 K/mm3 (0.0-0.8) 04/23/18 03:38 Eos # 0.2 K/mm3 (0.0-0.4) 04/23/18 03:38 Baso # 0.1 K/mm3 (0.0-0.1) 04/23/18 03:38 Add Manual Diff Complete 04/24/18 04:28 Total Counted 100 04/24/18 04:28 Seg Neutrophils % Clerical Associate 04/24/18 04:28 Seg Neuts % (Manual) 87.0 % (40.0-70.0) H 04/24/18 04:28 Band Neutrophils % 3.0 % 04/24/18 04:28 Lymphocytes % (Manual) 6.0 % (13.4-35.0) L 04/24/18 04:28 Reactive Lymphs % (Man) 0 % 04/24/18 04:28 Monocytes % (Manual) 4.0 % (0.0-7.3) 04/24/18 04:28 Eosinophils % (Manual) 0 % (0.0-4.3) 04/24/18 04:28 Basophils % (Manual) 0 % (0.0-1.8) 04/24/18 04:28 Metamyelocytes % 0 % 04/24/18 04:28 Myelocytes % 0 % 04/24/18 04:28 Promyelocytes % 0 % 04/24/18 04:28 Blast Cells % 0 % 04/24/18 04:28 Nucleated RBC % Not Reportable 04/24/18 04:28 Seg Neutrophils # 4.0 K/mm3 (1.8-7.7) 04/23/18 03:38 Seg Neutrophils # Man 12.6 K/mm3 (1.8-7.7) H 04/24/18 04:28 Band Neutrophils # 0.4 K/mm3 04/24/18 04:28 Lymphocytes # (Manual) 0.9 K/mm3 (1.2-5.4) L 04/24/18 04:28 Abs React Lymphs (Man) 0.0 K/mm3 04/24/18 04:28 Monocytes # (Manual) 0.6 K/mm3 (0.0-0.8) 04/24/18 04:28 Eosinophils # (Manual) 0.0 K/mm3 (0.0-0.4) 04/24/18 04:28 Basophils # (Manual) 0.0 K/mm3 (0.0-0.1) 04/24/18 04:28 Metamyelocytes # 0.0 K/mm3 04/24/18 04:28 Myelocytes # 0.0 K/mm3 04/24/18 04:28 Promyelocytes # 0.0 K/mm3 04/24/18 04:28 Blast Cells # 0.0 K/mm3 04/24/18 04:28 WBC Morphology Not Reportable 04/24/18 04:28 Hypersegmented Neuts Not Reportable 04/24/18 04:28 Hyposegmented Neuts Not Reportable 04/24/18 04:28 Hypogranular Neuts Not Reportable 04/24/18 04:28 Smudge Cells Not Reportable 04/24/18 04:28 Toxic Granulation Not Reportable 04/24/18 04:28 Toxic Vacuolation Not Reportable 04/24/18 04:28 Dohle Bodies Not Reportable 04/24/18 04:28 Pelger-Huet Anomaly Not Reportable 04/24/18 04:28 Mesha Rods Not Reportable 04/24/18 04:28 Platelet Estimate Consistent w auto 04/24/18 04:28 Clumped Platelets Not Reportable 04/24/18 04:28 Plt Clumps, EDTA Not Reportable 04/24/18 04:28 Large Platelets Not Reportable 04/24/18 04:28 Giant Platelets Not Reportable 04/24/18 04:28 Platelet Satelliting Not Reportable 04/24/18 04:28 Plt Morphology Comment Not Reportable 04/24/18 04:28 RBC Morphology Not Reportable 04/24/18 04:28 Dimorphic RBCs Not Reportable 04/24/18 04:28 Polychromasia Not Reportable 04/24/18 04:28 Hypochromasia Not Reportable 04/24/18 04:28 Poikilocytosis Not Reportable 04/24/18 04:28 Anisocytosis 1+ 04/24/18 04:28 Microcytosis Not Reportable 04/24/18 04:28 Macrocytosis Not Reportable 04/24/18 04:28 Spherocytes Not Reportable 04/24/18 04:28 Pappenheimer Bodies Not Reportable 04/24/18 04:28 Sickle Cells Not Reportable 04/24/18 04:28 Target Cells Not Reportable 04/24/18 04:28 Tear Drop Cells Not Reportable 04/24/18 04:28 Ovalocytes Not Reportable 04/24/18 04:28 Helmet Cells Not Reportable 04/24/18 04:28 [place] Bodies Not Reportable 04/24/18 04:28 [place]kelman Rings Not Reportable 04/24/18 04:28 [place] Cells Not Reportable 04/24/18 04:28 Bite Cells Not Reportable 04/24/18 04:28 Crenated Cell Not Reportable 04/24/18 04:28 Elliptocytes Not Reportable 04/24/18 04:28 Acanthocytes (Spur) Not Reportable 04/24/18 04:28 Rouleaux Not Reportable 04/24/18 04:28 Hemoglobin C Crystals Not Reportable 04/24/18 04:28 Schistocytes Not Reportable 04/24/18 04:28 Malaria parasites Not Reportable 04/24/18 04:28 Jayson Bodies Not Reportable 04/24/18 04:28 Hem Pathologist Commnt No 04/24/18 04:28 PT 13.4 Sec. (12.2-14.9) 04/23/18 03:38 INR 0.98 (0.87-1.13) 04/23/18 03:38 Sodium 135 mmol/L (137-145) L D 04/24/18 04:28 Potassium 5.4 mmol/L (3.6-5.0) H D 04/24/18 04:28 Chloride 96.6 mmol/L (98-107) L 04/24/18 04:28 Carbon Dioxide 28 mmol/L (22-30) 04/24/18 04:28 Anion Gap 16 mmol/L 04/24/18 04:28 BUN 8 mg/dL (9-20) L 04/24/18 04:28 Creatinine 0.5 mg/dL (0.8-1.5) L 04/24/18 04:28 Estimated GFR > 60 ml/min 04/24/18 04:28 BUN/Creatinine Ratio 16 % 04/24/18 04:28 Glucose 148 mg/dL (75-100) H 04/24/18 04:28 Uric Acid 5.5 mg/dL (3.5-7.6) 04/23/18 10:07 Calcium 9.2 mg/dL (8.4-10.2) 04/24/18 04:28 Total Creatine Kinase 218 units/L (55-170) H 04/23/18 22:45 CK-MB (CK-2) 5.1 ng/mL (0.0-4.0) H 04/23/18 22:45 CK-MB (CK-2) Rel Index 2.3 (0-4) 04/23/18 22:45 Troponin T < 0.010 ng/mL (0.00-0.029) 04/23/18 22:45 NT-Pro-B Natriuret Pep 124.8 pg/mL (0-450) 04/23/18 03:38 TSH 0.883 mlU/mL (0.270-4.200) 04/23/18 10:07 Urine Osmolality 589 Mosm/kg 04/23/18 21:52 Urine Sodium 80 mmol/L 04/23/18 21:52
[2018-04-24] MEDS ORDERED: KIONEX PO ONE (12:00)
[2018-04-25] MEDS: DUONEB *Not for PRN Use IH SCH ×3 (02:39→13:30)
[2018-04-25] MEDS: SOLU-Medrol IV SCH ×2 (04:58→11:26)
[2018-04-25] MEDS: TESSALON PERLES PO SCH ×2 (05:01→13:04)
[2018-04-25 06:27] LABS: Basophils % (Auto) 0.2 % (0.0-1.8); Eosinophils % (Auto) 0.1 % (0.0-4.3); Hematocrit 46.3 % (35.5-45.6); Lymphocytes # (Auto) 0.7 K/mm3 (1.2-5.4); Lymphocytes % (Auto) 6.6 % (13.4-35.0); Mean Corpuscular HGB Conc 33 % (32-34); Mean Corpuscular Volume 96 fl (84-94); Monocytes # (Auto) 0.6 K/mm3 (0.0-0.8); Monocytes % (Auto) 5.5 % (0.0-7.3); Platelet Count 241 K/mm3 (140-440); Red Cell Distribution Width 14.5 % (13.2-15.2)
[2018-04-25 06:44] LABS: BUN/Creatinine Ratio 20; Blood Urea Nitrogen 12 mg/dL (9-20); Calcium 9.2 mg/dL (8.4-10.2); Hemolysis Index 8
[2018-04-25] MEDS: LOPRESSOR PO SCH (09:01)
[2018-04-25] MEDS: HABITROL TD SCH (09:01)
[2018-04-25] MEDS: LOVENOX SUB-Q SCH (09:01)
[2018-04-25] MEDS: SODIUM CHLORIDE FLUSH SYRINGE 10 ML IV SCH (09:02)
--- NOTE | 2018-04-25 10:33 | Progress Note ---
Assessment and Plan COPD with exacerbation.Controlled Acute exacerbation of chronic bronchitis.Controlled Chest pain. Under evaluation by cardiology.Resolved Hyponatremia. Nephrology following, SIADH suspected Suspected SDB/ANGELIA Morbid obesity Hypertension Hyperkalemia Recommendations Complete ABX Ambulate on r/a tyrone Oxygen support evaluation PO Prednisone 40 mg with 5-7 days taper down Smoking cessation discussed in detail. OPD f/u PFT and PSG for COPD and ANGELIA evaluation. DVT prophylaxis Can go home [id number] Findings were discussed with the patient in detail. All questions answered. Subjective Date of service: 04/25/18 Principal diagnosis: COPD exacerbation,ANGELIA,hyponatremia Interval history: No chest complains.No SOB or ROMERO Objective Vital Signs - 12hr 04/25/18 04/25/18 04/25/18 00:57 02:30 02:40 Temperature 98.5 F Pulse Rate 88 Pulse Rate [ 82 85 Bilateral] Respiratory 18 Rate Respiratory 16 16 Rate [Bilateral ] Blood Pressure 149/71 O2 Sat by Pulse 96 Oximetry 04/25/18 04/25/18 04/25/18 05:49 07:31 07:32 Temperature 97.5 F L Pulse Rate 89 Pulse Rate [ 99 H Bilateral] Respiratory 18 Rate Respiratory 18 Rate [Bilateral ] Blood Pressure 132/71 O2 Sat by Pulse 92 96 Oximetry Constitutional: no acute distress, alert, other (morbidly obese,plethoric fascies) Eyes: non-icteric ENT: oropharynx moist, other (Mallampati 3-4) Neck: supple, no JVD Ascultation: Bilateral: clear Cardiovascular: regular rate and rhythm Gastrointestinal: normoactive bowel sounds, non-distended Integumentary: normal Extremities: no cyanosis, no edema Neurologic: normal mental status, non-focal exam, pupils equal and round, CN II- XII normal, motor strength normal and Psychiatric: mood appropriate, affect normal CBC and BMP: 04/25/18 05:25 04/25/18 05:25 ABG, PT/INR, D-dimer: PT/INR, D-dimer PT 13.4 Sec. (12.2-14.9) 04/23/18 03:38 INR 0.98 (0.87-1.13) 04/23/18 03:38 Abnormal lab findings: Abnormal Labs 04/23/18 04/23/18 04/23/18 03:38 03:38 03:38 WBC Hgb 15.7 H Hct 46.0 H MCV 95 H Lymph % (Auto) [place] % (Auto) 9.2 H Lymph # Seg Neutrophils % Seg Neuts % (Manual) Lymphocytes % (Manual) Seg Neutrophils # Seg Neutrophils # Man Lymphocytes # (Manual) Sodium 128 L Potassium Chloride 90.9 L BUN 8 L Creatinine 0.7 L Glucose 124 H Total Creatine Kinase 267 H CK-MB (CK-2) 7.0 H 04/23/18 04/23/18 04/23/18 06:36 10:07 14:54 WBC Hgb Hct MCV Lymph % (Auto) [place] % (Auto) Lymph # Seg Neutrophils % Seg Neuts % (Manual) Lymphocytes % (Manual) Seg Neutrophils # Seg Neutrophils # Man Lymphocytes # (Manual) Sodium Potassium Chloride BUN Creatinine Glucose Total Creatine Kinase 262 H 266 H 241 H CK-MB (CK-2) 6.2 H 6.7 H 6.4 H 04/23/18 04/23/18 04/24/18 17:19 22:45 04:28 WBC 14.5 H Hgb 15.9 H Hct 48.0 H MCV 97 H Lymph % (Auto) [place] % (Auto) Lymph # Seg Neutrophils % Seg Neuts % (Manual) 87.0 H Lymphocytes % (Manual) 6.0 L Seg Neutrophils # Seg Neutrophils # Man 12.6 H Lymphocytes # (Manual) 0.9 L Sodium Potassium Chloride BUN Creatinine Glucose Total Creatine Kinase 235 H 218 H CK-MB (CK-2) 6.2 H 5.1 H 04/24/18 04/25/18 04/25/18 04:28 05:25 05:25 WBC Hgb Hct 46.3 H MCV 96 H Lymph % (Auto) 6.6 L [place] % (Auto) Lymph # 0.7 L Seg Neutrophils % 87.6 H Seg Neuts % (Manual) Lymphocytes % (Manual) Seg Neutrophils # 9.5 H Seg Neutrophils # Man Lymphocytes # (Manual) Sodium 135 L D Potassium 5.4 H D Chloride 96.6 L 93.6 L BUN 8 L Creatinine 0.5 L 0.6 L Glucose 148 H 142 H Total Creatine Kinase CK-MB (CK-2)
--- NOTE | 2018-04-25 10:54 | Discharge Summary ---
Providers - Providers Date of Admission: 04/23/18 06:16 Date of discharge: 04/25/18 Attending physician: TIFFANIE WARNER 04/23/18 07:41 Consult to Physician [CONS] Routine Comment: Consulting Provider: REJI BYERS Physician Instructions: Reason For Exam: respiratory failure 04/23/18 07:44 Consult to Physician [CONS] Routine Comment: Consulting Provider: TITO ANAYA Physician Instructions: Reason For Exam: hyponatremia, Cushingoid appearance Primary care physician: YOSHI RAI Hospitalization Reason for admission: worsening shortness of breath, acute hypoxic respiratory failure Condition: Stable Pertinent studies: Stress test; negative for reversible ischemia EF 70% Chest x-ray; no acute abnormality noted Hospital course: Patient is a Patient is a 42-year-old man with a history of hypertension, dyslipidemia, morbid obesity and Tobacco dependency was admitted through [facility] ED with SOB x 2 days., Patient was initially evaluated noted to be in acute on chronic hypoxic respiratory failure requiring oxygen, Ventimask, Patient was admitted and man aged for acute bronchitis, acute exacerbation of COPD Patient was evaluated by pulmonary, managed with nebulizers and IV steroids inhalation steroids and supportive care Electrolyte imbalances were corrected, patient's room air resting and ambulatory O2 sats more than 95%,No indication for home oxygen Today patient is comfortable in no new complaints, vital signs stable The patient is hemodynamically and clinically stable at discharge Smoking cessation counseling done, advised nicotine patch --Discharge diagnosis and management; -- Acute hypoxic respiratory failure, poa on VM 50%, EMS reported a low pulse ox of 88% RA: continue o2 therapy and nebs, Pulmonology evaluated, tapering dose of steroids, symptoms improved --Acute bronchitis: Managed with bronchodilators, tapering dose of steroids --Hyperkalemia; Kayexalate. Resolved --Moderate to severe Hyponatremia, hypovolemia: Corrected --Atypical Chest pain, Cardiac enzymes, stress test negative --Morbid obesity, bmi 49.5; advised weight reduction when stable --Tobacco dependency (~2 ppd): counseling case manager smoking cessation, nicotine patch as needed Patient is stable at discharge Patient needs outpatient pulmonary function tests, sleep study to rule out obstructive sleep apnea Advised to follow private client relations associate per schedule Disposition: TO HOME OR SELFCARE Time spent for discharge: 32 min Core Measure Documentation - Palliative Care Palliative Care/ Comfort Measures: Not Applicable - Core Measures Any of the following diagnoses?: none Exam - Constitutional Vitals: Temp Pulse Resp BP Pulse Ox 97.5 F L 99 H 18 132/71 96 04/25/18 05:49 04/25/18 07:31 04/25/18 07:31 04/25/18 05:49 04/25/18 07:32 General appearance: Present: no acute distress, well-nourished, obese (morbidly obese) - EENT Eyes: Present: PERRL, EOM intact - Neck Neck: Present: supple, normal ROM - Respiratory Respiratory effort: normal Respiratory: bilateral: diminished, negative: rales, rhonchi, wheezing - Cardiovascular Rhythm: regular Heart Sounds: Present: S1 & S2 - Extremities Extremities: no ischemia, No edema - Abdominal General gastrointestinal: Present: soft, non-tender, non-distended - Integumentary Integumentary: Present: clear, warm - Musculoskeletal Musculoskeletal: strength equal bilaterally - Psychiatric Psychiatric: appropriate mood/affect, cooperative - Neurologic Neurologic: CNII-XII intact, moves all extremities Plan Activity: no restrictions Diet: low salt Special Instructions: smoking cessation Additional Instructions: Advise smoking cessation, nicotine patch as needed. Advise dietary modification, exercise as tolerated, weight reduction when medically stable. If you have shortness of breath or cough, contact M.D. or go to emergency room. Follow private client relations associate for outpatient pulmonary function tests/sleep study to rule out obstructive sleep apnea Follow up with: YOSHI RAI [Primary Care Provider] - 7 Days PARI SILVA MD [Staff Physician] - 7 Days Prescriptions: ALBUTEROL Inhaler(NF) [VENTOLIN Inhaler(NF)] 2 puff IH QID PRN #1 inha PRN Reason: Shortness Of Breath Benzonatate [Tessalon Perles] 100 mg PO Q8HR #30 capsule Nicotine [Habitrol] 21 mg TD QDAY #30 patch Prednisone [predniSONE 10 mg (6-Day Pack, 21 Tabs)] 10 mg PO .TAPER #1 tab.ds.pk
[2018-04-25] MEDS ORDERED: ZESTRIL PO ONE (12:39)
--- NOTE | 2018-04-25 12:40 | Progress Note ---
Assessment and Plan Impression * Hyponatremia. Patient is clinically euvolemic * Shortness of breath. Most likely secondary to COPD * Chest pain * Hypertension * Obesity * Hyperkalemia Recommendation * Hyponatremia is much improved. 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 * Serum sodium is better today at 137. Continue free water restriction * Hyperkalemia has been corrected . Cortisol level would not be useful as patient is already on steroids * Avoid hydrochlorothiazide and other medications that can aggravate hyponatremia * Okay to discharge patient home from renal standpoint Subjective Date of service: 04/25/18 Principal diagnosis: COPD exacerbation,ANGELIA,hyponatremia Interval history: Patient is comfortable. Getting ready to go home. Shortness of breath improved. Objective - Vital Signs Vital signs: Vital Signs - 12hr 04/25/18 04/25/18 04/25/18 00:57 02:30 02:40 Temperature 98.5 F Pulse Rate 88 Pulse Rate [ 82 85 Bilateral] Respiratory 18 Rate Respiratory 16 16 Rate [Bilateral ] Blood Pressure 149/71 O2 Sat by Pulse 96 Oximetry 04/25/18 04/25/18 04/25/18 05:49 07:31 07:32 Temperature 97.5 F L Pulse Rate 89 Pulse Rate [ 99 H Bilateral] Respiratory 18 Rate Respiratory 18 Rate [Bilateral ] Blood Pressure 132/71 O2 Sat by Pulse 92 96 Oximetry 04/25/18 11:47 Temperature 98.2 F Pulse Rate 81 Pulse Rate [ Bilateral] Respiratory 22 Rate Respiratory Rate [Bilateral ] Blood Pressure 169/92 O2 Sat by Pulse 93 Oximetry - General Appearance General appearance: well-developed, well-nourished, appears stated age EENT: PERRL, mucous membranes moist Neck: no JVD, no thyromegaly, no carotid bruit, supple Respiratory: Present: Clear to Ascultation Cardiology: regular, normal heart rate, S1S2, no murmurs Gastrointestinal: normal, normoactive bowel sounds Integumentary: other (no edema) - Lab 04/25/18 05:25 04/25/18 05:25 Most recent lab results Calcium 9.2 mg/dL (8.4-10.2) 04/25/18 05:25 Magnesium 2.10 mg/dL (1.7-2.3) 04/25/18 05:25 Urine Sodium 80 mmol/L 04/23/18 21:52 Medications & Allergies - Medications Allergies/Adverse Reactions: Allergies Iodinated Contrast- Oral and IV Dye Allergy (Verified 09/24/13 21:15) Rash Home Medications: Home Medications Medication Instructions Recorded Confirmed Last Taken Type Aspirin [Aspirin TAB] 325 mg PO QDAY #30 tablet 09/26/13 04/23/18 Unknown Rx Famotidine [Pepcid] 20 mg PO BID #60 tablet 09/26/13 04/23/18 Unknown Rx Lisinopril [Zestril TAB] 10 mg PO QDAY #30 tablet 09/26/13 04/23/18 04/22/18 Rx Pravastatin Sodium [Pravastatin] 10 mg PO QHS #30 tablet 09/26/13 04/23/18 Unknown Rx amLODIPine [Norvasc] 5 mg PO QDAY #30 tablet 09/26/13 04/23/18 Unknown Rx ALBUTEROL Inhaler(NF) [VENTOLIN 2 puff IH QID PRN #1 inha 04/25/18 Unknown Rx Inhaler(NF)] Benzonatate [Tessalon Perles] 100 mg PO Q8HR #30 capsule 04/25/18 Unknown Rx Nicotine [Habitrol] 21 mg TD QDAY #30 patch 04/25/18 Unknown Rx Prednisone [predniSONE 10 mg 10 mg PO .TAPER #1 tab.ds.pk 04/25/18 Unknown Rx (6-Day Pack, 21 Tabs)] Active Medications: Generic Name Dose Route Start Last Admin Trade Name Freq PRN Reason Stop Dose Admin Acetaminophen 650 mg 04/23/18 06:16 Tylenol PO Q4H PRN Pain MILD(1-3)/Fever >100.5/MERAZ Albuterol 2.5 mg 04/24/18 03:20 Proventil IH Q4HRT PRN Shortness Of Breath Albuterol/Ipratropium 1 ampul 04/23/18 08:00 04/25/18 07:31 Duoneb *Not For Prn Use* IH 1 ampul Q6HRT SANTIAGO Administration Benzonatate 100 mg 04/23/18 08:00 04/25/18 05:01 Tessalon Perles PO 100 mg Q8HR SANTIAGO Administration Enoxaparin Sodium 40 mg 04/23/18 10:00 04/25/18 09:01 Lovenox SUB-Q 40 mg QDAY@1000 SANTIAGO Administration Methylprednisolone Sodium Succinate 40 mg 04/23/18 12:00 04/25/18 11:26 Solu-Medrol IV 40 mg Q8H SANTIAGO Administration Metoprolol Tartrate 50 mg 04/23/18 18:00 04/25/18 09:01 Lopressor PO 50 mg BID SANTIAGO Administration Nicotine 21 mg 04/23/18 10:00 04/25/18 09:01 Habitrol TD 21 mg QDAY SANTIAGO Administration Ondansetron HCl 4 mg 04/23/18 06:16 Zofran IV Q8H PRN Nausea And Vomiting Sodium Chloride 10 ml 04/23/18 10:00 04/25/18 09:02 Sodium Chloride Flush Syringe 10 Ml IV 10 ml BID SANTIAGO Administration Sodium Chloride 10 ml 04/23/18 06:16 Sodium Chloride Flush Syringe 10 Ml IV PRN PRN LINE FLUSH
[2018-04-25 13:45] VITALS: BP 157/86
== END 2018-04-25 14:42 | disposition home or self-care (01) | DRG 189 ==
LOC: SUATTDRO 02:28 → ED 02:28 → 3A 06:16
PROVIDERS: ADMIT Internal Medicine; ATTEND Internal Medicine
DX: J96.01 Acute respiratory failure with hypoxia (principal); E87.1 Hypo-osmolality and hyponatremia; J44.1 Chronic obstructive pulmonary disease with (acute) exacerbation; J44.0 Chronic obstructive pulmonary disease with (acute) lower respiratory infection; Z68.42 Body mass index [BMI] 45.0-49.9, adult; E66.01 Morbid (severe) obesity due to excess calories; J20.9 Acute bronchitis, unspecified; E87.5 Hyperkalemia; I10 Essential (primary) hypertension; J96.21 Acute and chronic respiratory failure with hypoxia; E86.1 Hypovolemia; R07.89 Other chest pain; G47.33 Obstructive sleep apnea (adult) (pediatric); F17.210 Nicotine dependence, cigarettes, uncomplicated; Z82.49 Family history of ischemic heart disease and other diseases of the circulatory system; Z71.6 Tobacco abuse counseling; Z91.041 Radiographic dye allergy status; Z79.82 Long term (current) use of aspirin; Z79.899 Other long term (current) drug therapy
CPT/HCPCS: 36415; 71045; 78452; 80048; 82550; 82553; 83735; 83880; 83935; 84300; 84443; 84484; 84550; 85007; 85025; 85610; 93005; 93010; 93017; 94640; 94760; 96365; 96375; 99406; G0378; A9502; J1650; J1885; J2270; J2405; J2785; J2920; J2930; J3475; J7030; J7040

== ENCOUNTER 2019-06-26 14:46 | Emergency (ER) | payer OTHER ==
[2019-06-26] MEDS ORDERED: MAGNESIUM SULFATE 2 GM/50 ML BAG IV ONE (15:00)
[2019-06-26] MEDS: ALBUTEROL 2.5 MG/3 ML NEBU IH ONE ×2 (15:00→15:59)
[2019-06-26] MEDS ORDERED: methylPREDNISolone Sod Succinate 125 MG/2 ML INJ IV ONE (15:00)
[2019-06-26] MEDS: IPRATROPIUM 0.02% NEBU 2.5 ML IH ONE ×2 (15:00→15:59)
[2019-06-26 15:34] LABS: Basophils # (Auto) 0.1 K/mm3 (0.0-0.1); Basophils % (Auto) 0.9 % (0.0-1.8); Eosinophils # (Auto) 0.1 K/mm3 (0.0-0.4); Eosinophils % (Auto) 1.1 % (0.0-4.3); Hematocrit 47.1 % (35.5-45.6); Hemoglobin 15.7 gm/dl (11.8-15.2); Lymphocytes # (Auto) 1.2 K/mm3 (1.2-5.4); Lymphocytes % (Auto) 19.3 % (13.4-35.0); Mean Corpuscular HGB Conc 33 % (32-34); Mean Corpuscular Volume 94 fl (84-94); Monocytes # (Auto) 0.4 K/mm3 (0.0-0.8); Monocytes % (Auto) 6.7 % (0.0-7.3); Platelet Count 238 K/mm3 (140-440); Red Cell Distribution Width 14.8 % (13.2-15.2)
[2019-06-26] MEDS ORDERED: FAMOTIDINE 20 MG/2 ML INJ IV ONE (15:40)
[2019-06-26] MEDS ORDERED: ACETAMINOPHEN 325 MG TAB PO PRN (15:40)
--- NOTE | 2019-06-26 15:47 | Emergency Department Report ---
ED Shortness of Breath HPI - General Chief Complaint: Dyspnea/Respdistress Stated Complaint: RESPIRATORY DISTRESS Time Seen by Provider: 06/26/19 14:59 Source: patient, EMS ( EMS documentation not available at time of chart dictation ), RN notes reviewed, old records reviewed Mode of arrival: Stretcher Limitations: Physical Limitation - History of Present Illness Initial Comments: Patient is a 44-year-old gentleman. The patient typically follows with the [facility]. He has a history of morbid obesity, sleep apnea, electrolyte derangement, atypical chest pain, COPD/reactive airway disease. He was admitted to this hospital in 2019 for electrolyte derangement, atypical chest pain, and COPD exacerbation. He had a negative nuclear stress test. He presents to the ER with EMS with 3 days of cough, chest wall pain, shortness of breath. He feels like this is his prior COPD exacerbation, although more intense. He denies DVT and pulmonary embolism risk factors. He denies fever, confirmed coronavirus sick contacts, but has occasionally left the house. There is no complaint of headache, neck pain, abdominal pain, extremity weakness and no numbness, there is no complaint of urinary symptoms. EMS started the patient on CPAP, and gave nebulizer therapy in the field MD Complaint: shortness of breath, cough, chest pain -: Gradual, days(s) Severity: moderate Consistency: constant Improves With: oxygen, rest, bronchodilators, upright position, medication Worsens With: lying flat Known History Of: COPD Treatments Prior to Arrival: bronchodilator, NIPPV - Related Data Home Oxygen Therapy: No Previous Rx's Medication Instructions Recorded Last Taken Type Aspirin 325 mg PO QDAY #30 tablet 09/26/13 Unknown Rx Famotidine [Pepcid] 20 mg PO BID #60 tablet 09/26/13 Unknown Rx Pravastatin Sodium [Pravastatin] 10 mg PO QHS #30 tablet 09/26/13 Unknown Rx amLODIPine 5 mg PO QDAY #30 tablet 09/26/13 Unknown Rx lisinopriL [Zestril TAB] 10 mg PO QDAY #30 tablet 09/26/13 04/22/18 Rx ALBUTEROL Inhaler(NF) [VENTOLIN 2 puff IH QID PRN #1 inha 04/25/18 Unknown Rx Inhaler(NF)] Benzonatate [Tessalon Perles] 100 mg PO Q8HR #30 capsule 04/25/18 Unknown Rx Nicotine [Habitrol] 21 mg TD QDAY #30 patch 04/25/18 Unknown Rx Prednisone [predniSONE 10 mg 10 mg PO .TAPER #1 tab.ds.pk 04/25/18 Unknown Rx (6-Day Pack, 21 Tabs)] Acetaminophen [Non-Aspirin Extra 500 mg PO Q6HR PRN #30 tablet 06/26/19 Unknown Rx Strength] Albuterol Sulfate [Proair 90 mcg IH Q4HR PRN #2 aer.pow.ba 06/26/19 Unknown Rx Respiclick] DOXYCYCLINE Hyclate [Vibramycin] 100 mg PO Q12HR #10 capsule 06/26/19 Unknown Rx Famotidine [Pepcid] 20 mg PO BID #60 tablet 06/26/19 Unknown Rx Fluticasone [Flonase] 1 spray NS QDAY #1 bottle 06/26/19 Unknown Rx Ipratropium (Nf) [Atrovent] 2 puff IH Q6HR PRN #1 inha 06/26/19 Unknown Rx Ipratropium [Atrovent NEB] 0.5 mg IH Q4HR #2 ml 06/26/19 Unknown Rx predniSONE [Deltasone] 40 mg PO QDAY #8 tab 06/26/19 Unknown Rx Allergies Allergy/AdvReac Type Severity Reaction Status Date / Time Iodinated Contrast Media Allergy Rash Verified 09/24/13 21:15 ED Review of Systems ROS: Stated complaint: RESPIRATORY DISTRESS Other details as noted in HPI Constitutional: malaise. denies: fever Eyes: denies: eye discharge ENT: denies: epistaxis Respiratory: cough, shortness of breath, wheezing Cardiovascular: chest pain. denies: syncope Gastrointestinal: as per HPI Genitourinary: as per HPI Musculoskeletal: as per HPI Skin: as per HPI Neurological: as per HPI Psychiatric: as per HPI Hematological/Lymphatic: as per HPI ED Past Medical Hx - Past Medical History Previous Medical History?: Yes Hx Hypertension: Yes Hx Congestive Heart Failure: No Hx Diabetes: No Hx Asthma: No Hx COPD: Yes - Social History Smoking Status: Former Smoker Substance Use Type: None - Medications Home Medications: Home Medications Medication Instructions Recorded Confirmed Last Taken Type Aspirin 325 mg PO QDAY #30 tablet 09/26/13 04/23/18 Unknown Rx Famotidine [Pepcid] 20 mg PO BID #60 tablet 09/26/13 04/23/18 Unknown Rx Pravastatin Sodium [Pravastatin] 10 mg PO QHS #30 tablet 09/26/13 04/23/18 Unknown Rx amLODIPine 5 mg PO QDAY #30 tablet 09/26/13 04/23/18 Unknown Rx lisinopriL [Zestril TAB] 10 mg PO QDAY #30 tablet 09/26/13 04/23/18 04/22/18 Rx ALBUTEROL Inhaler(NF) [VENTOLIN 2 puff IH QID PRN #1 inha 04/25/18 Unknown Rx Inhaler(NF)] Benzonatate [Tessalon Perles] 100 mg PO Q8HR #30 capsule 04/25/18 Unknown Rx Nicotine [Habitrol] 21 mg TD QDAY #30 patch 04/25/18 Unknown Rx Prednisone [predniSONE 10 mg 10 mg PO .TAPER #1 tab.ds.pk 04/25/18 Unknown Rx (6-Day Pack, 21 Tabs)] Acetaminophen [Non-Aspirin Extra 500 mg PO Q6HR PRN #30 tablet 06/26/19 Unknown Rx Strength] Albuterol Sulfate [Proair 90 mcg IH Q4HR PRN #2 aer.pow.ba 06/26/19 Unknown Rx Respiclick] DOXYCYCLINE Hyclate [Vibramycin] 100 mg PO Q12HR #10 capsule 06/26/19 Unknown Rx Famotidine [Pepcid] 20 mg PO BID #60 tablet 06/26/19 Unknown Rx Fluticasone [Flonase] 1 spray NS QDAY #1 bottle 06/26/19 Unknown Rx Ipratropium (Nf) [Atrovent] 2 puff IH Q6HR PRN #1 inha 06/26/19 Unknown Rx Ipratropium [Atrovent NEB] 0.5 mg IH Q4HR #2 ml 06/26/19 Unknown Rx predniSONE [Deltasone] 40 mg PO QDAY #8 tab 06/26/19 Unknown Rx ED Physical Exam - General Limitations: Physical Limitation General appearance: alert, anxious, in distress, obese - Head Head exam: Present: atraumatic, normocephalic - Eye Eye exam: Present: normal appearance, EOMI. Absent: nystagmus - ENT ENT exam: Present: normal exam, normal orophraynx, mucous membranes moist, normal external ear exam - Neck Neck exam: Present: normal inspection, full ROM. Absent: tenderness, mening ismus - Respiratory Respiratory exam: Present: respiratory distress, chest wall tenderness, decreased breath sounds. Absent: rales, rhonchi, stridor - Cardiovascular Cardiovascular Exam: Present: regular rate, normal rhythm, normal heart sounds. Absent: bradycardia, tachycardia, irregular rhythm, systolic murmur, diastolic murmur, rubs, gallop - GI/Abdominal GI/Abdominal exam: Present: soft. Absent: distended, tenderness, guarding, rebound, rigid, pulsatile mass - Rectal Rectal exam: Present: deferred - Extremities Exam Extremities exam: Present: normal inspection, full ROM, other (Moving 4 extr emities spontaneously. There is no asymmetry in the bilateral lower extremities. 2+ pulses noted in the bilateral upper extremities) - Back Exam Back exam: Present: normal inspection. Absent: tenderness, CVA tenderness (R), CVA tenderness (L), paraspinal tenderness, vertebral tenderness - Neurological Exam Neurological exam: Present: alert, other (There is no facial droop. The tongue is midline. Extraocular movements are intact bilaterally. There is 5 out of 5 strength in bilateral upper and lower extremities. Sensation is intact to light touch bilateral upper and lower extremities.There is a normal gait.) - Psychiatric Psychiatric exam: Present: anxious - Skin Skin exam: Present: warm, dry, intact, normal color. Absent: rash ED Course Vital Signs 06/26/19 06/26/19 06/26/19 15:00 15:04 15:12 Temperature 99.2 F Pulse Rate 96 H 93 H Pulse Rate [ 102 H Anterior Bilateral Throughout] Respiratory 20 20 Rate Respiratory 21 Rate [Anterior Bilateral Throughout] Blood Pressure 141/81 141/81 Blood Pressure [Left] O2 Sat by Pulse 98 98 Oximetry 06/26/19 06/26/19 16:23 18:23 Temperature Pulse Rate 84 102 H Pulse Rate [ Anterior Bilateral Throughout] Respiratory 16 Rate Respiratory Rate [Anterior Bilateral Throughout] Blood Pressure Blood Pressure 163/74 [Left] O2 Sat by Pulse 96 Oximetry - Reevaluation(s) Reevaluation #1: 06/26/19 15:46 Differential diagnosis, including but not limited to: Costochondritis, GERD, gastritis, COPD exacerbation, pneumonia Assessment and plan: 44-year-old gentleman who endorses no acute pulmonary embolism or DVT risk factors, presenting with decreased breath sounds, shortness of breath, chest wall tightness, suspicious for COPD exacerbation and possible costochondritis. Patient at low risk for major adverse cardiac event as per heart score, assuming negative troponin, which we anticipate. We will treat his symptoms, start him on BiPAP, obtain screening laboratory studies, and reassess. Reevaluation #2: 06/26/19 17:34 Feeling improved. Work of breathing improved. Lung sounds improved. Laboratory studies unremarkable. Feels very anxious. Repeat troponin, repeat EKG ordered. Versed ordered for anxiety. Patient to receive trial of ambulation on room air with portable pulse ox. Communicated this order to the nurse. Reevaluation #3: 06/26/19 18:34 Patient feels much improved, although still quite anxious. He is able to ambulate for 6 minutes without significant desaturation. Work of breathing has markedly improved. We discussed the need for proper hand hygiene, weight loss, modification of lifestyle and risk factors. The patient verbalizes understanding. He endorses that he is reliable to take his medications, and follow-up as an outpatient. ED Medical Decision Making - Lab Data Result diagrams: 06/26/19 15:16 06/26/19 15:16 Vital Signs 06/26/19 15:12 Temperature 99.2 F Pulse Rate 93 H Respiratory 20 Rate Blood Pressure 141/81 O2 Sat by Pulse 98 Oximetry Lab Results 06/26/19 Range/Units 15:16 WBC 6.3 (4.5-11.0) K/mm3 RBC 5.00 (3.65-5.03) M/mm3 Hgb 15.7 H (11.8-15.2) gm/dl Hct 47.1 H (35.5-45.6) % MCV 94 (84-94) fl MCH 31 (28-32) pg MCHC 33 (32-34) % RDW 14.8 (13.2-15.2) % Plt Count 238 (140-440) K/mm3 Lymph % (Auto) 19.3 (13.4-35.0) % [place] % (Auto) 6.7 (0.0-7.3) % Eos % (Auto) 1.1 (0.0-4.3) % Baso % (Auto) 0.9 (0.0-1.8) % Lymph # 1.2 (1.2-5.4) K/mm3 Baca # 0.4 (0.0-0.8) K/mm3 Eos # 0.1 (0.0-0.4) K/mm3 Baso # 0.1 (0.0-0.1) K/mm3 Seg Neutrophils % 72.0 H (40.0-70.0) % Seg Neutrophils # 4.6 (1.8-7.7) K/mm3 - EKG Data -: EKG Interpreted by Me EKG shows normal: sinus rhythm Rate: normal - EKG Data 06/26/19 15:46 Sinus rhythm, 92 bpm, normal axis, QTC 449 ms, motion artifact, poor R wave progression, the EKG is abnormal, it is not a STEMI, the axis is within normal limits. 06/26/19 18:17 EKG #2 is unchanged from prior EKG. - Radiology Data Radiology results: pending, report reviewed, image reviewed interpreted by me: X-ray of the chest is negative for acute disease Print Report Referring Physician: COLTEN LAWRENCE Patient Name: DENISSE VENTURA Date of : 1975 Sex: Male Report Date: 2019-06-26 Report Status: Finalized Findings [facility] [address] [place] [address] XRay Report Signed Patient: DENISSE VENTURA MR#: [id number] : 1975 Acct:[id number] Age/Sex: 44 / M ADM Date: 06/26/19 Loc: ED Attending Dr: Yunior ha Physician: COLTEN LAWRENCE MD Date of Service: 06/26/19 Procedure(s): XR chest 1V ap Accession Number(s): [id number] cc: COLTEN LAWRENCE MD Fluoro Time In Minutes: CHEST 1 VIEW INDICATION: Dyspnea. COMPARISON: 04/23/2018 FINDINGS: Support devices: None. Heart: Within normal limits. Pulmonary vasculature: Normal. The right pulmonary artery is prominent due to rotation. Lungs/Pleura: The lungs are normally expanded and clear. Additional findings: None. IMPRESSION: 1. No acute findings. Signer Name: Malvin Olmedo MD Signed: 06/26/2019 3:42 PM Workstation Name: [id number] Transcribed By: REF Dictated By: MALVIN OLMEDO MD Electronically Authenticated By: MALVIN OLMEDO MD Signed Date/Time: 06/26/19 154 DD/ 1540 Critical Care Time: Yes Critical care time in (mins) excluding proc time.: 35 Critical care attestation.: If time is entered above; I have spent that time in minutes in the direct care of this critically ill patient, excluding procedure time. ED Disposition Clinical Impression: Morbid obesity with BMI of 40.0-44.9, adult, Chest wall pain COPD (chronic obstructive pulmonary disease) Qualifiers: COPD type: unspecified COPD Qualified Code(s): J44.9 - Chronic obstructive pulmonary disease, unspecified Disposition: TO HOME OR SELFCARE Is pt being admited?: No Does the pt Need Aspirin: No Condition: Good Instructions: Chest Pain (ED), Chronic Obstructive Pulmonary Disease (ED) Additional Instructions: Take the medications as needed/directed. Strongly encouraged physical activi ties as tolerated, appropriate diet, and aggressive weight loss. Make sure to wash hands with soap and water frequently and often, do not touch hands to face, eyes, mouth, and make certain to self quarantine and self isolate and avoid sick contacts or individuals with coronavirus. Recommend follow-up with a primary care doctor, medical doctor, or florist within the next 3 to 5 days. For the patient's convenience, numerous local primary care doctors, medical doctor and florist have been listed for his convenience. Take the prescribed medications as directed and needed, please return to the emergency room right away with new, worsened or different symptoms, or symptoms not present on the initial emergency room evaluation. Patient is encouraged to evaluate his own personal sleep device, CPAP, APAP or BiPAP, and to determine if there is an available application that he can down load to his smart phone device so he can track compliance with his nocturnal sleep device. Prescriptions: Ipratropium (Nf) [Atrovent] 2 puff IH Q6HR PRN #1 inha PRN Reason: Dyspnea Ipratropium [Atrovent NEB] 0.5 mg IH Q4HR #2 ml predniSONE [Deltasone] 40 mg PO QDAY #8 tab Fluticasone [Flonase] 1 spray NS QDAY #1 bottle Acetaminophen [Non-Aspirin Extra Strength] 500 mg PO Q6HR PRN #30 tablet PRN Reason: Pain , Severe (7-10) Famotidine [Pepcid] 20 mg PO BID #60 tablet Albuterol Sulfate [Proair Respiclick] 90 mcg IH Q4HR PRN #2 aer.pow.ba PRN Reason: Wheezing DOXYCYCLINE Hyclate [Vibramycin] 100 mg PO Q12HR #10 capsule Referrals: DOV SUAREZ MD [Staff Physician] - 3-5 Days REJI BYERS MD [Staff Physician] - 3-5 Days YOSHI RAI MD [Staff Physician] - 3-5 Days [facility] [Provider Group] - 3-5 Days
[2019-06-26 15:51] LABS: INR 1.03 (0.87-1.13)
[2019-06-26 15:55] LABS: Alanine Aminotransferase 29 units/L (7-56); Albumin 4.4 g/dL (3.9-5); BUN/Creatinine Ratio 13; Blood Urea Nitrogen 8 mg/dL (9-20); Calcium 9.4 mg/dL (8.4-10.2); Hemolysis Index 7
[2019-06-26] MEDS ORDERED: MIDAZOLAM 2 MG/2 ML INJ IV ONE (17:34)
[2019-06-26] MEDS ORDERED: MIDAZOLAM 5 MG/5 ML INJ MDV IV ONE (19:00)
[2019-06-26 19:21] VITALS: BP 146/79
== END 2019-06-26 19:10 | disposition home or self-care (01) ==
LOC: ED 14:46
DX: J44.9 Chronic obstructive pulmonary disease, unspecified (principal); E66.01 Morbid (severe) obesity due to excess calories; Z68.41 Body mass index [BMI] 40.0-44.9, adult; I10 Essential (primary) hypertension; Z87.891 Personal history of nicotine dependence
CPT/HCPCS: 36415; 71045; 80053; 82550; 83735; 84484; 85025; 85610; 93005; 93010; 94640; 96365; 96375; 99285; J2250; J2930; J3475; 94644

== ENCOUNTER 2020-05-14 14:51 | Inpatient (IN) | payer OTHER ==
--- NOTE | 2020-05-14 15:44 | XRay Report ---
CHEST 1 VIEW INDICATION: DYSPNEA. COMPARISON: 06/26/2019 FINDINGS: Support devices: None. Heart: Within normal limits. Lungs/Pleura: No acute air space or interstitial disease. Additional findings: None. IMPRESSION: No acute findings or change since 06/26/2019. Signer Name: John Kapoor Jr, MD Signed: 05/14/2020 3:40 PM Workstation Name: [id number]
[2020-05-14 16:12] LABS: Basophils % (Auto) 0.5 % (0.0-1.8); Eosinophils % (Auto) 0.6 % (0.0-4.3); Hematocrit 31.9 % (35.5-45.6); Hemoglobin 10.5 gm/dl (11.8-15.2); Lymphocytes # (Auto) 0.5 K/mm3 (1.2-5.4); Lymphocytes % (Auto) 8.1 % (13.4-35.0); Mean Corpuscular HGB Conc 33 % (32-34); Mean Corpuscular Volume 103 fl (84-94); Monocytes # (Auto) 0.9 K/mm3 (0.0-0.8); Monocytes % (Auto) 14.1 % (0.0-7.3); Platelet Count 286 K/mm3 (140-440); Red Blood Count 3.09 M/mm3 (3.65-5.03)
[2020-05-14 16:22] LABS: INR 1.27 (0.87-1.13)
[2020-05-14] MEDS ORDERED: MORPHINE 4 MG/1 ML INJ IV ONE (16:22)
[2020-05-14] MEDS ORDERED: FUROSEMIDE 40 MG/4 ML INJ IV ONE (16:22)
[2020-05-14 16:23] LABS: Partial Thromboplastin Time 33.4 Sec. (24.2-36.6)
--- NOTE | 2020-05-14 16:27 | Emergency Department Report ---
HPI - General Chief Complaint: Dyspnea/Respdistress Time Seen by Provider: 05/14/20 16:01 - HPI HPI: This is a 45-year-old male who presents to the emergency department via EMS from home with complaint of swelling and pain to the bilateral legs and feet, to the abdomen, along with associated shortness of breath and some intermittent chest discomfort. Overall this has been going on for the past 2 months but getting progressively worse to the point where it became "too much" and the patient came in for evaluation. He has a past medical history of COPD not oxygen dependent, hypertension, obstructive sleep apnea on CPAP, and a history of coronary artery disease without coronary stents. Patient says that he usually follows up with the [facility] for primary care and cardiology needs. No recent travel or sick contacts at home. He has been taking his home medications, which includes 40 mg of Lasix per day, compliantly, but has not t aken any other extremity patient's to treat his symptoms. He is a former smoker. He denies any fever, nausea or vomiting, constipation or diarrhea. No known exposure to anyone with COVID-19. ED Past Medical Hx - Past Medical History Previous Medical History?: Yes Hx Hypertension: Yes Hx Congestive Heart Failure: No Hx Diabetes: No Hx Asthma: No Hx COPD: Yes - Social History Smoking Status: Former Smoker Substance Use Type: Alcohol - Medications Home Medications: Home Medications Medication Instructions Recorded Confirmed Last Taken Type Aspirin 325 mg PO QDAY #30 tablet 09/26/13 04/23/18 Unknown Rx Famotidine [Pepcid] 20 mg PO BID #60 tablet 09/26/13 04/23/18 Unknown Rx Pravastatin Sodium [Pravastatin] 10 mg PO QHS #30 tablet 09/26/13 04/23/18 Unknown Rx amLODIPine 5 mg PO QDAY #30 tablet 09/26/13 04/23/18 Unknown Rx lisinopriL [Zestril TAB] 10 mg PO QDAY #30 tablet 09/26/13 04/23/18 04/22/18 Rx ALBUTEROL Inhaler(NF) [VENTOLIN 2 puff IH QID PRN #1 inha 04/25/18 Unknown Rx Inhaler(NF)] Benzonatate [Tessalon Perles] 100 mg PO Q8HR #30 capsule 04/25/18 Unknown Rx Nicotine [Habitrol] 21 mg TD QDAY #30 patch 04/25/18 Unknown Rx Prednisone [predniSONE 10 mg 10 mg PO .TAPER #1 tab.ds.pk 04/25/18 Unknown Rx (6-Day Pack, 21 Tabs)] Acetaminophen [Non-Aspirin Extra 500 mg PO Q6HR PRN #30 tablet 06/26/19 Unknown Rx Strength] Albuterol Sulfate [Proair 90 mcg IH Q4HR PRN #2 aer.pow.ba 06/26/19 Unknown Rx Respiclick] DOXYCYCLINE Hyclate [Vibramycin] 100 mg PO Q12HR #10 capsule 06/26/19 Unknown Rx Famotidine [Pepcid] 20 mg PO BID #60 tablet 06/26/19 Unknown Rx Fluticasone [Flonase] 1 spray NS QDAY #1 bottle 06/26/19 Unknown Rx Ipratropium (Nf) [Atrovent] 2 puff IH Q6HR PRN #1 inha 06/26/19 Unknown Rx Ipratropium [Atrovent NEB] 0.5 mg IH Q4HR #2 ml 06/26/19 Unknown Rx predniSONE [Deltasone] 40 mg PO QDAY #8 tab 06/26/19 Unknown Rx ED Review of Systems ROS: Stated complaint: LEG PAIN Other details as noted in HPI Comment: All other systems reviewed and negative Constitutional: denies: chills, fever Eyes: denies: eye pain, vision change ENT: denies: ear pain, throat pain Respiratory: shortness of breath, SOB with exertion Cardiovascular: chest pain, edema Gastrointestinal: abdominal pain. denies: vomiting Genitourinary: denies: dysuria, discharge Musculoskeletal: joint swelling, arthralgia, myalgia Skin: denies: rash, lesions Neurological: denies: numbness, paresthesias Physical Exam - Physical Exam Vital Signs: Vital Signs 05/14/20 15:03 Temperature 98.1 F Pulse Rate 113 H Respiratory 20 Rate Blood Pressure 141/60 O2 Sat by Pulse 98 Oximetry Physical Exam: GENERAL: The patient is ill-appearing. HENT: Normocephalic. Atraumatic. Patient has moist mucous membranes. EYES: Extraocular motions are intact. Pupils equal reactive to light bilaterally. NECK: Supple. Trachea is midline. CHEST/LUNGS: Clear to auscultation. There is tachypnea with some conversational dyspnea. HEART/CARDIOVASCULAR: Regular. There is mild tachycardia. There is no murmur. ABDOMEN: Abdomen is soft, nontender. Patient has normal bowel sounds. Very morbidly obese habitus. SKIN: Skin is warm and dry. There is moderate pitting edema to the bilateral lower extremities. There is moderate nonpitting swelling to the lower half of the abdomen. NEURO: The patient is awake, alert, and oriented. The patient is cooperative. The patient has no focal neurologic deficits. Normal speech. MUSCULOSKELETAL: Tenderness to palpation to the bilateral lower extremities. ED Course Vital Signs 05/14/20 15:03 Temperature 98.1 F Pulse Rate 113 H Respiratory 20 Rate Blood Pressure 141/60 O2 Sat by Pulse 98 Oximetry ED Medical Decision Making - Lab Data Result diagrams: 05/14/20 15:05/14/20 15: Lab Results 05/14/20 05/14/20 05/14/20 Range/Units 15:22 15:22 15:26 WBC 6.7 (4.5-11.0) K/mm3 RBC 3.09 L (3.65-5.03) M/mm3 Hgb 10.5 L (11.8-15.2) gm/dl Hct 31.9 L (35.5-45.6) % MCV 103 H (84-94) fl MCH 34 H (28-32) pg MCHC 33 (32-34) % RDW 15.0 (13.2-15.2) % Plt Count 286 (140-440) K/mm3 Lymph % (Auto) 8.1 L (13.4-35.0) % [place] % (Auto) 14.1 H (0.0-7.3) % Eos % (Auto) 0.6 (0.0-4.3) % Baso % (Auto) 0.5 (0.0-1.8) % Lymph # (Auto) 0.5 L (1.2-5.4) K/mm3 [place] # (Auto) 0.9 H (0.0-0.8) K/mm3 Eos # (Auto) 0.0 (0.0-0.4) K/mm3 Baso # (Auto) 0.0 (0.0-0.1) K/mm3 Seg Neutrophils % 76.7 H (40.0-70.0) % Seg Neutrophils # 5.1 (1.8-7.7) K/mm3 PT 15.9 H (12.2-14.9) Sec. INR 1.27 H (0.87-1.13) APTT 33.4 (24.2-36.6) Sec. Sodium (137-145) mmol/L Potassium (3.6-5.0) mmol/L Chloride (98-107) mmol/L Carbon Dioxide (22-30) mmol/L Anion Gap mmol/L BUN (9-20) mg/dL Creatinine (0.8-1.3) mg/dL Estimated GFR ml/min BUN/Creatinine Ratio % Glucose (75-100) mg/dL Calcium (8.4-10.2) mg/dL Total Bilirubin (0.1-1.2) mg/dL AST (5-40) units/L ALT (7-56) units/L Alkaline Phosphatase (35-129) units/L Troponin T (0.00-0.029) ng/mL NT-Pro-B Natriuret Pep 137.0 (0-450) pg/mL Total Protein (6.3-8.2) g/dL Albumin (3.9-5) g/dL Albumin/Globulin Ratio % TSH (0.270-4.200) mlU/mL 05/14/20 05/14/20 05/14/20 Range/Units 15:26 16:29 16:55 WBC (4.5-11.0) K/mm3 RBC (3.65-5.03) M/mm3 Hgb (11.8-15.2) gm/dl Hct (35.5-45.6) % MCV (84-94) fl MCH (28-32) pg MCHC (32-34) % RDW (13.2-15.2) % Plt Count (140-440) K/mm3 Lymph % (Auto) (13.4-35.0) % [place] % (Auto) (0.0-7.3) % Eos % (Auto) (0.0-4.3) % Baso % (Auto) (0.0-1.8) % Lymph # (Auto) (1.2-5.4) K/mm3 [place] # (Auto) (0.0-0.8) K/mm3 Eos # (Auto) (0.0-0.4) K/mm3 Baso # (Auto) (0.0-0.1) K/mm3 Seg Neutrophils % (40.0-70.0) % Seg Neutrophils # (1.8-7.7) K/mm3 PT (12.2-14.9) Sec. INR (0.87-1.13) APTT (24.2-36.6) Sec. Sodium 130 L (137-145) mmol/L Potassium 5.0 (3.6-5.0) mmol/L Chloride 88.8 L (98-107) mmol/L Carbon Dioxide 24 (22-30) mmol/L Anion Gap 22 mmol/L BUN 6 L (9-20) mg/dL Creatinine 0.8 (0.8-1.3) mg/dL Estimated GFR > 60 ml/min BUN/Creatinine Ratio 8 % Glucose 334 H (75-100) mg/dL Calcium 9.4 (8.4-10.2) mg/dL Total Bilirubin 1.00 (0.1-1.2) mg/dL AST 50 H (5-40) units/L ALT 27 (7-56) units/L Alkaline Phosphatase 214 H (35-129) units/L Troponin T < 0.010 (0.00-0.029) ng/mL NT-Pro-B Natriuret Pep (0-450) pg/mL Total Protein 6.3 (6.3-8.2) g/dL Albumin 3.2 L (3.9-5) g/dL Albumin/Globulin Ratio 1.0 % TSH 2.590 (0.270-4.200) mlU/mL - EKG Data -: EKG Interpreted by Me EKG shows normal: sinus rhythm, axis, intervals, QRS complexes, ST-T waves Rate: tachycardia (110 bpm) - EKG Data When compared to previous EKG there are: no significant change Interpretation: unchanged when compared t (06/26/19) - Radiology Data Radiology results: report reviewed, image reviewed interpreted by me: Chest x-ray does not show any acute process. There are no pleural effusions, obvious pneumonia and there is no pneumothorax. No significant cardiomegaly. DUPLEX DOPPLER LOWER EXTREMITY VEINS, BILATERAL INDICATION / CLINICAL INFORMATION: B/L leg swelling and pain. TECHNIQUE: Duplex doppler imaging was performed through the veins of both lower extremities using venous compression and other maneuvers. COMPARISON: None available. FINDINGS: RIGHT COMMON FEMORAL VEIN: Negative. RIGHT FEMORAL VEIN: Negative. RIGHT POPLITEAL VEIN: Negative. RIGHT CALF VEINS: Negative. LEFT COMMON FEMORAL VEIN: Negative. LEFT FEMORAL VEIN: Negative. LEFT POPLITEAL VEIN: Negative. LEFT CALF VEINS: Negative. ADDITIONAL FINDINGS: None. IMPRESSION: 1. No sonographic evidence for DVT in either lower extremity. - Medical Decision Making This patient presents to the emergency department with a complaint of swelling to the bilateral lower extremities and abdomen, as well as pain in both of these areas. The patient also complains of some shortness of breath. The patient is extremely swollen to the legs and abdomen to the point where he is having dif ficulty with some of his ADLs. Chest x-ray did not show any pleural effusions, pneumonia, pneumothorax, or any other acute process. The patient's labs shows hyperglycemia without signs of diabetic ketoacidosis. He has hypoalbuminemia. No renal insufficiency. There is a slight elevation in his AST level, and the transaminases are in a pattern consistent with chronic alcohol consumption. The patient also has a slightly elevated INR level despite not being on anticoagulation. He had bilateral lower extremity venous Doppler ultrasounds that were negative for any DVT. Patient was given extra Lasix to help with diuresis. He was given some IV insulin and IV analgesia. The patient will be admitted to the hospital for further evaluation and treatment was accepted for admission by the hospitalist, Dr. Jansen. Critical Care Time: No Critical care attestation.: If time is entered above; I have spent that time in minutes in the direct care of this critically ill patient, excluding procedure time. ED Disposition Clinical Impression: Anasarca, Hyponatremia, Hypoalbuminemia, Morbid obesity with BMI of 40.0-44.9, adult Dyspnea Qualifiers: Dyspnea type: shortness of breath Qualified Code(s): R06.02 - Shortness of breath; R06.00 - Dyspnea, unspecified; R06.01 - Orthopnea Disposition: OP ADMIT IP TO THIS HOSP Is pt being admited?: Yes Condition: Fair Time of Disposition: 17:50
[2020-05-14 16:33] LABS: Alanine Aminotransferase 27 units/L (7-56); Albumin 3.2 g/dL (3.9-5); BUN/Creatinine Ratio 8; Blood Urea Nitrogen 6 mg/dL (9-20); Calcium 9.4 mg/dL (8.4-10.2); Hemolysis Index 0
[2020-05-14] MEDS ORDERED: INSULIN REGULAR, HUMAN 100 UNITS/1 ML IV ONE (16:45)
--- NOTE | 2020-05-14 17:51 | Vascular Lab Report ---
DUPLEX DOPPLER LOWER EXTREMITY VEINS, BILATERAL INDICATION / CLINICAL INFORMATION: B/L leg swelling and pain. TECHNIQUE: Duplex doppler imaging was performed through the veins of both lower extremities using venous jasson brittany and other maneuvers. COMPARISON: None available. FINDINGS: RIGHT COMMON FEMORAL VEIN: Negative. RIGHT FEMORAL VEIN: Negative. RIGHT POPLITEAL VEIN: Negative. RIGHT CALF VEINS: Negative. LEFT COMMON FEMORAL VEIN: Negative. LEFT FEMORAL VEIN: Negative. LEFT POPLITEAL VEIN: Negative. LEFT CALF VEINS: Negative. ADDITIONAL FINDINGS: None. IMPRESSION: 1. No sonographic evidence for DVT in either lower extremity. Signer Name: Roney Polanco MD Signed: 05/14/2020 5:46 PM Workstation Name: [id number]
[2020-05-14] MEDS ORDERED: ALBUTEROL 8.5 GM MDI INHALATION IH PRN (23:05)
[2020-05-14] MEDS ORDERED: ACETAMINOPHEN 500 MG TAB PO PRN (23:05)
[2020-05-14] MEDS ORDERED: ACETAMINOPHEN 325 MG TAB PO PRN (23:06)
[2020-05-14] MEDS ORDERED: HYDROmorphone 1 MG/1 ML INJ IV PRN (23:06)
[2020-05-14] MEDS ORDERED: oxyCODONE /ACETAMINOPHEN 5-325MG TAB PO PRN (23:06)
[2020-05-14] MEDS ORDERED: ONDANSETRON 4 MG/2 ML INJ IV PRN (23:06)
[2020-05-14] MEDS ORDERED: IPRATROPIUM/ALBUTEROL SULFATE 3 ML AMPUL.NEB IH PRN (23:10)
[2020-05-14] MEDS ORDERED: ALBUTEROL 2.5 MG/3 ML NEBU IH PRN ×2 (23:12→23:30)
--- NOTE | 2020-05-14 23:13 | History and Physical Report ---
History of Present Illness Date of examination: 05/14/20 Date of admission: 05/14/20 17:51 Chief complaint: Bilateral pedal edema and abdominal distention History of present illness: This is a 45-year-old male who presents to the emergency department via EMS from home with complaint of swelling and pain to the bilateral legs and feet, to the abdomen, along with associated shortness of breath and some intermittent chest discomfort. Overall this has been going on for the past 2 months but getting progressively worse to the point where it became "too much" and the patient came in for evaluation. He has a past medical history of COPD not oxygen dependent, hypertension, obstructive sleep apnea on CPAP, and a history of coronary artery disease without coronary stents. Patient says that he usually follows up with the [facility] for primary care and cardiology needs. No recent travel or sick contacts at home. He has been taking his home medications, which includes 40 mg of Lasix per day, compliantly, but has not taken any other extremity patient's to treat his symptoms. He is a former smoker. He denies any fever, nausea or vomiting, constipation or diarrhea. No known exposure to anyone with COVID-19. - Past Medical History Previous Medical History?: Yes Hx Hypertension: Yes Hx COPD: Yes Pulmonary hypertension - Social History Smoking Status: Former Smoker Substance Use Type: Alcohol Review of Systems ROS: Stated complaint: LEG PAIN Other details as noted in HPI Comment: All other systems reviewed and negative Constitutional: denies: chills, fever Eyes: denies: eye pain, vision change ENT: denies: ear pain, throat pain Respiratory: shortness of breath, SOB with exertion Cardiovascular: chest pain, edema Gastrointestinal: abdominal pain. denies: vomiting Genitourinary: denies: dysuria, discharge Musculoskeletal: joint swelling, arthralgia, myalgia Skin: denies: rash, lesions Neurological: denies: numbness, paresthesias Medications and Allergies Allergies Allergy/AdvReac Type Severity Reaction Status Date / Time Iodinated Contrast Media Allergy Rash Verified 09/24/13 21:15 Home Medications Medication Instructions Recorded Confirmed Last Taken Type Aspirin 325 mg PO QDAY #30 tablet 09/26/13 04/23/18 Unknown Rx Famotidine [Pepcid] 20 mg PO BID #60 tablet 09/26/13 04/23/18 Unknown Rx Pravastatin Sodium [Pravastatin] 10 mg PO QHS #30 tablet 09/26/13 04/23/18 Unknown Rx amLODIPine 5 mg PO QDAY #30 tablet 09/26/13 04/23/18 Unknown Rx lisinopriL [Zestril TAB] 10 mg PO QDAY #30 tablet 09/26/13 04/23/18 04/22/18 Rx ALBUTEROL Inhaler(NF) [VENTOLIN 2 puff IH QID PRN #1 inha 04/25/18 Unknown Rx Inhaler(NF)] Benzonatate [Tessalon Perles] 100 mg PO Q8HR #30 capsule 04/25/18 Unknown Rx Nicotine [Habitrol] 21 mg TD QDAY #30 patch 04/25/18 Unknown Rx Prednisone [predniSONE 10 mg 10 mg PO .TAPER #1 tab.ds.pk 04/25/18 Unknown Rx (6-Day Pack, 21 Tabs)] Acetaminophen [Non-Aspirin Extra 500 mg PO Q6HR PRN #30 tablet 06/26/19 Unknown Rx Strength] Albuterol Sulfate [Proair 90 mcg IH Q4HR PRN #2 aer.pow.ba 06/26/19 Unknown Rx Respiclick] DOXYCYCLINE Hyclate [Vibramycin] 100 mg PO Q12HR #10 capsule 06/26/19 Unknown Rx Famotidine [Pepcid] 20 mg PO BID #60 tablet 06/26/19 Unknown Rx Fluticasone [Flonase] 1 spray NS QDAY #1 bottle 06/26/19 Unknown Rx Ipratropium (Nf) [Atrovent] 2 puff IH Q6HR PRN #1 inha 06/26/19 Unknown Rx Ipratropium [Atrovent NEB] 0.5 mg IH Q4HR #2 ml 06/26/19 Unknown Rx predniSONE [Deltasone] 40 mg PO QDAY #8 tab 06/26/19 Unknown Rx Exam - Physical Exam Narrative exam: Morbidly obese male - Constitutional Vitals: Temp Pulse Resp BP Pulse Ox 98.1 F 113 H 20 141/60 98 05/14/20 15:03 05/14/20 15:03 05/14/20 15:03 05/14/20 15:03 05/14/20 15:03 General appearance: Present: no acute distress, severe distress, well-nourished - EENT Eyes: Present: PERRL ENT: hearing intact, clear oral mucosa - Neck Neck: Present: supple, normal ROM - Respiratory Respiratory effort: normal Respiratory: bilateral: CTA, rhonchi, wheezing - Cardiovascular Heart rate: 78 Rhythm: regular Heart Sounds: Present: S1 & S2. Absent: rub, click - Extremities Extremities: pulses symmetrical, No edema Extremity abnormal: edema (4+ pedal edema), other (4+ pedal edema) Peripheral Pulses: within normal limits - Abdominal General gastrointestinal: Present: soft, non-tender, non-distended, normal bowel sounds Male genitourinary: Present: normal - Integumentary Integumentary: Present: clear, warm, dry - Musculoskeletal Musculoskeletal: gait normal, strength equal bilaterally - Psychiatric Psychiatric: appropriate mood/affect, intact judgment & insight - Neurologic Neurologic: CNII-XII intact, moves all extremities HEART Score - HEART Score History: Moderately suspicious Age: 45-65 Risk factors: 1-2 risk factors Troponin: Troponin T < 0.010 ng/mL (0.00-0.029) 05/14/20 16:29 Troponin: < normal limit - Critical Actions Critical Actions: 0-3 pts:0.9-1.7%risk of adverse cardiac event.Candidate for discharge Results - Labs CBC & Chem 7: 05/15/20 04:14 05/15/20 04:14 Labs: Laboratory Last Values WBC 6.7 K/mm3 (4.5-11.0) 05/14/20 15: RBC 3.09 M/mm3 (3.65-5.03) L 05/14/20 15:22 Hgb 10.5 gm/dl (11.8-15.2) L 05/14/20 15:22 Hct 31.9 % (35.5-45.6) L 05/14/20 15:22 MCV 103 fl (84-94) H 05/14/20 15:22 MCH 34 pg (28-32) H 05/14/20 15:22 MCHC 33 % (32-34) 05/14/20 15:22 RDW 15.0 % (13.2-15.2) 05/14/20 15:22 Plt Count 286 K/mm3 (140-440) 05/14/20 15:22 Lymph % (Auto) 8.1 % (13.4-35.0) L 05/14/20 15:22 [place] % (Auto) 14.1 % (0.0-7.3) H 05/14/20 15:22 Eos % (Auto) 0.6 % (0.0-4.3) 05/14/20 15:22 Baso % (Auto) 0.5 % (0.0-1.8) 05/14/20 15:22 Lymph # (Auto) 0.5 K/mm3 (1.2-5.4) L 05/14/20 15:22 [place] # (Auto) 0.9 K/mm3 (0.0-0.8) H 05/14/20 15:22 Eos # (Auto) 0.0 K/mm3 (0.0-0.4) 05/14/20 15:22 Baso # (Auto) 0.0 K/mm3 (0.0-0.1) 05/14/20 15: Seg Neutrophils % 76.7 % (40.0-70.0) H 05/14/20 15: Seg Neutrophils # 5.1 K/mm3 (1.8-7.7) 05/14/20 15:22 PT 15.9 Sec. (12.2-14.9) H 05/14/20 15:26 INR 1.27 (0.87-1.13) H 05/14/20 15:26 APTT 33.4 Sec. (24.2-36.6) 05/14/20 15:26 Sodium 130 mmol/L (137-145) L 05/14/20 15:26 Potassium 5.0 mmol/L (3.6-5.0) 05/14/20 15:26 Chloride 88.8 mmol/L (98-107) L 05/14/20 15:26 Carbon Dioxide 24 mmol/L (22-30) 05/14/20 15:26 Anion Gap 22 mmol/L 05/14/20 15:26 BUN 6 mg/dL (9-20) L 05/14/20 15:26 Creatinine 0.8 mg/dL (0.8-1.3) 05/14/20 15:26 Estimated GFR > 60 ml/min 05/14/20 15:26 BUN/Creatinine Ratio 8 % 05/14/20 15:26 Glucose 334 mg/dL (75-100) H 05/14/20 15:26 Calcium 9.4 mg/dL (8.4-10.2) 05/14/20 15:26 Total Bilirubin 1.00 mg/dL (0.1-1.2) 05/14/20 15:26 AST 50 units/L (5-40) H 05/14/20 15:26 ALT 27 units/L (7-56) 05/14/20 15:26 Alkaline Phosphatase 214 units/L (35-129) H 05/14/20 15:26 Troponin T < 0.010 ng/mL (0.00-0.029) 05/14/20 16:29 NT-Pro-B Natriuret Pep 137.0 pg/mL (0-450) 05/14/20 15:22 Total Protein 6.3 g/dL (6.3-8.2) 05/14/20 15: Albumin 3.2 g/dL (3.9-5) L 05/14/20 15: Albumin/Globulin Ratio 1.0 % 05/14/20 15:26 TSH 2.590 mlU/mL (0.270-4.200) 05/14/20 16:55 Short CBC 05/14/20 05/15/20 Range/Units 15:22 04:14 WBC 6.7 5.9 (4.5-11.0) K/mm3 Hgb 10.5 L 10.6 L (11.8-15.2) gm/dl Hct 31.9 L 32.5 L (35.5-45.6) % Plt Count 286 244 (140-440) K/mm3 BMP 05/14/20 05/15/20 15:26 04:14 Sodium 130 L 132 L Potassium 5.0 4.3 Chloride 88.8 L 91.0 L Carbon Dioxide 24 24 BUN 6 L 5 L Creatinine 0.8 0.6 L Glucose 334 H 236 H Calcium 9.4 8.8 Cardiac Enzymes 05/14/20 Range/Units 16:29 Troponin T < 0.010 (0.00-0.029) ng/mL Liver Function 05/14/20 05/15/20 Range/Units 15:26 04:14 Total Bilirubin 1.00 0.90 (0.1-1.2) mg/dL AST 50 H 45 H (5-40) units/L ALT 27 23 (7-56) units/L Alkaline Phosphatase 214 H 203 H (35-129) units/L Albumin 3.2 L 3.3 L (3.9-5) g/dL Urine // Range/Units 02:22 Urine Color Leilani (Yellow) Urine pH 6.0 (5.0-7.0) Ur Specific Fraser 1.018 (1.003-1.030) Urine Protein 30 mg/dl (Negative) mg/dL Urine Glucose (UA) >=500 (Negative) mg/dL - Imaging and Cardiology EKG: report reviewed Chest x-ray: report reviewed Assessment and Plan Advance Directives: Yes (Full code) VTE prophylaxis?: Chemical Plan of care discussed with patient/family: Yes - Patient Problems (1) Pulmonary hypertension Current Visit: Yes Status: Acute Plan to address problem: Secondary to COPD resulting in bilateral pedal edema and abdominal distention Echocardiogram for pulmonary hypertension IV Lasix in the meantime Cardiology consult (2) COPD with exacerbation Current Visit: Yes Status: Acute Plan to address problem: Patient initiated on duo nebs IV Levaquin and IV Solu-Medrol (3) Hyponatremia Current Visit: Yes Status: Acute Plan to address problem: Mild Patient on Lasix which may exacerbate the low sodium levels (4) Morbid obesity with BMI of 40.0-44.9, adult Current Visit: Yes Status: Chronic Plan to address problem: Needs bariatric surgery as outpatient Follow-up with Dr. Maki (5) Pedal edema Current Visit: Yes Status: Acute Plan to address problem: IV Lasix for now No DVTs Secondary to pulmonary hypertension (6) Hypoalbuminemia Current Visit: Yes Status: Acute Plan to address problem: Malnutrition Dietitian consult (7) Anemia Current Visit: Yes Status: Chronic Qualifiers: Anemia type: unspecified type Qualified Code(s): D64.9 - Anemia, unspecified Plan to address problem: Anemia work-up (8) DVT prophylaxis Current Visit: Yes Status: Acute Plan to address problem: On heparin and GI prophylaxis
[2020-05-15] MEDS: methylPREDNISolone Sod Succinate 40 MG/1 ML INJ IV SCH ×4 (00:52→22:59)
[2020-05-15] MEDS: HEPARIN 5,000 UNIT/1 ML VIAL SUB-Q SCH ×3 (00:52→22:57)
[2020-05-15 04:49] LABS: Bacteria,Urine 1+ /HPF (Negative); Bilirubin,Urine NEG (Negative); Blood,Urine LG (Negative); Color,Urine Amber (Yellow); Hyaline Casts,Urine 2 /LPF
[2020-05-15 04:52] LABS: RBC,Urine > 182.0 /HPF (0.0-6.0)
[2020-05-15] MEDS: BENZONATATE 100 MG CAP PO SCH ×3 (05:39→22:59)
[2020-05-15] MEDS: FUROSEMIDE 40 MG/4 ML INJ IV SCH ×2 (05:39→18:44)
[2020-05-15 06:49] LABS: Basophils % (Auto) 0.3 % (0.0-1.8); Eosinophils % (Auto) 0.2 % (0.0-4.3); Hematocrit 32.5 % (35.5-45.6); Hemoglobin 10.6 gm/dl (11.8-15.2); Lymphocytes # (Auto) 0.3 K/mm3 (1.2-5.4); Lymphocytes % (Auto) 4.9 % (13.4-35.0); Mean Corpuscular HGB Conc 33 % (32-34); Mean Corpuscular Volume 105 fl (84-94); Monocytes # (Auto) 0.4 K/mm3 (0.0-0.8); Monocytes % (Auto) 6.6 % (0.0-7.3); Platelet Count 244 K/mm3 (140-440); Red Cell Distribution Width 14.8 % (13.2-15.2)
[2020-05-15 07:07] LABS: Alanine Aminotransferase 23 units/L (7-56); Albumin 3.3 g/dL (3.9-5); Blood Urea Nitrogen 5 mg/dL (9-20); Calcium 8.8 mg/dL (8.4-10.2); Hemolysis Index 0
[2020-05-15 07:08] LABS: BUN/Creatinine Ratio 8
[2020-05-15] MEDS ORDERED: NON-FORMULARY EACH (Albuterol Sulfate [Proair Respiclick] 90 MCG Aer.Pow.Ba) IH PRN (09:46)
[2020-05-15] MEDS ORDERED: NON-FORMULARY EACH (Ipratropium (Nf) 1 PUFF Inha) IH PRN (09:46)
[2020-05-15] MEDS ORDERED: cefTRIAXone/NS 1 GM/50 ML 1 GM/50 ML BAG IV SCH (10:00)
[2020-05-15] MEDS ORDERED: DEXTROSE 50% IN WATER (25GM) 50 ML SYRINGE IV PRN (10:00)
[2020-05-15 10:10] LABS: % Iron Saturation 18.85 %
[2020-05-15] MEDS: IPRATROPIUM/ALBUTEROL SULFATE 3 ML AMPUL.NEB IH SCH ×4 (10:15→22:44)
--- NOTE | 2020-05-15 11:06 | Event Note ---
Date: 05/15/20 Patient has swelling of the abdomen and lower extremities, she is also complaining diarrhea for the last [address] abdomen and pelvis with and without contrast ordered. Stool work-up ordered. GI consult placed. Patient has shortness of breath due to COPD and pulmonary is consulted. Echo ordered and reading pending. BNP is low and suspicion for CHF is low.
[2020-05-15] MEDS: FLUTICASONE PROPIONATE NASAL SPRAY 16 GM NS SCH (11:24)
[2020-05-15] MEDS: NICOTINE 21 MG/24 HR PATCH TD SCH (11:24)
[2020-05-15] MEDS: FAMOTIDINE 20 MG TAB PO SCH ×2 (11:25→22:59)
[2020-05-15] MEDS: ASPIRIN 325 MG TAB PO SCH (11:25)
[2020-05-15] MEDS: POTASSIUM CHLORIDE ER 20 MEQ TAB PO SCH ×2 (11:25→22:59)
[2020-05-15] MEDS: LISINOPRIL 10 MG TAB PO SCH (11:25)
[2020-05-15] MEDS: amLODIPine 5 MG TAB PO SCH (11:31)
[2020-05-15] MEDS ORDERED: IPRATROPIUM 0.02% NEBU 2.5 ML IH SCH (12:00)
--- NOTE | 2020-05-15 13:31 | Consultation ---
History of Present Illness Consult date: 05/15/20 Requesting physician: AR GRIMALDO Reason for consult: COPD History of present illness: PCCM CONSULT NOTE (Full dictation # [id number]) Please see dictated notes for full details Medications and Allergies Allergies Allergy/AdvReac Type Severity Reaction Status Date / Time Iodinated Contrast Media Allergy Rash Verified 09/24/13 21:15 Home Medications Medication Instructions Recorded Confirmed Last Taken Type Aspirin 325 mg PO QDAY #30 tablet 09/26/13 04/23/18 Unknown Rx Famotidine [Pepcid] 20 mg PO BID #60 tablet 09/26/13 04/23/18 Unknown Rx Pravastatin Sodium [Pravastatin] 10 mg PO QHS #30 tablet 09/26/13 04/23/18 Unknown Rx amLODIPine 5 mg PO QDAY #30 tablet 09/26/13 04/23/18 Unknown Rx lisinopriL [Zestril TAB] 10 mg PO QDAY #30 tablet 09/26/13 04/23/18 04/22/18 Rx ALBUTEROL Inhaler(NF) [VENTOLIN 2 puff IH QID PRN #1 inha 04/25/18 Unknown Rx Inhaler(NF)] Benzonatate [Tessalon Perles] 100 mg PO Q8HR #30 capsule 04/25/18 Unknown Rx Nicotine [Habitrol] 21 mg TD QDAY #30 patch 04/25/18 Unknown Rx Prednisone [predniSONE 10 mg 10 mg PO .TAPER #1 tab.ds.pk 04/25/18 Unknown Rx (6-Day Pack, 21 Tabs)] Acetaminophen [Non-Aspirin Extra 500 mg PO Q6HR PRN #30 tablet 06/26/19 Unknown Rx Strength] Albuterol Sulfate [Proair 90 mcg IH Q4HR PRN #2 aer.pow.ba 06/26/19 Unknown Rx Respiclick] DOXYCYCLINE Hyclate [Vibramycin] 100 mg PO Q12HR #10 capsule 06/26/19 Unknown Rx Famotidine [Pepcid] 20 mg PO BID #60 tablet 06/26/19 Unknown Rx Fluticasone [Flonase] 1 spray NS QDAY #1 bottle 06/26/19 Unknown Rx Ipratropium (Nf) [Atrovent] 2 puff IH Q6HR PRN #1 inha 06/26/19 Unknown Rx Ipratropium [Atrovent NEB] 0.5 mg IH Q4HR #2 ml 06/26/19 Unknown Rx predniSONE [Deltasone] 40 mg PO QDAY #8 tab 06/26/19 Unknown Rx Active Meds: Active Medications Acetaminophen (Acetaminophen 325 Mg Tab) 650 mg PO Q4H PRN PRN Reason: Pain MILD(1-3)/Fever >100.5/MERAZ Albuterol (Albuterol 2.5 Mg/3 Ml Nebu) 2.5 mg IH Q3HRT PRN PRN Reason: Wheezing/ SOB Albuterol/Ipratropium (Ipratropium/Albuterol Sulfate 3 Ml Ampul.Neb) 1 ampul IH QIDRT [facility] Last Admin: 05/15/20 13:27 Dose: 1 ampul Documented by: Amlodipine Besylate (Amlodipine 5 Mg Tab) 5 mg PO QDAY [facility] Last Admin: 05/15/20 11:31 Dose: 5 mg Documented by: Aspirin (Aspirin 325 Mg Tab) 325 mg PO QDAY [facility] Last Admin: 05/15/20 11:25 Dose: 325 mg Documented by: Benzonatate (Benzonatate 100 Mg Cap) 100 mg PO Q8HR [facility] Last Admin: 05/15/20 13:15 Dose: 100 mg Documented by: Dextrose (Dextrose 50% In Water (25gm) 50 Ml Syringe) 50 ml IV Q30MIN PRN; Protocol PRN Reason: Hypoglycemia Famotidine (Famotidine 20 Mg Tab) 20 mg PO BID [facility] Last Admin: 05/15/20 11:25 Dose: 20 mg Documented by: Fluticasone Propionate (Fluticasone Propionate Nasal [place] 16 Gm) 50 mcg NS QDAY [facility] Last Admin: 05/15/20 11:24 Dose: 50 mcg Documented by: Furosemide (Furosemide 40 Mg/4 Ml Inj) 40 mg IV 0600,1800 [facility] Last Admin: 05/15/20 05:39 Dose: 40 mg Documented by: Heparin Sodium (Porcine) (Heparin 5,000 Unit/1 Ml Vial) 5,000 unit SUB-Q Q12HR [facility] Last Admin: 05/15/20 11:26 Dose: 5,000 unit Documented by: Hydromorphone HCl (Hydromorphone 1 Mg/1 Ml Inj) 0.5 mg IV Q3H PRN PRN Reason: Pain , Severe (7-10) Levofloxacin/Dextrose (Levaquin 750mg/150ml) 750 mg in 150 mls @ 100 mls/hr IV Q24HR [facility]; Protocol Last Admin: 05/15/20 11:23 Dose: 100 mls/hr Documented by: Ceftriaxone Sodium (Rocephin/Ns 1 Gm/50 Ml) 1 gm in 50 mls @ 100 mls/hr IV Q24H [facility]; Protocol Last Admin: 05/15/20 11:30 Dose: 100 mls/hr Documented by: Insulin Human Lispro (Insulin Lispro 100 Unit/Ml) 0 unit SUB-Q ACHS [facility]; Protocol Lisinopril (Lisinopril 10 Mg Tab) 10 mg PO QDAY [facility] Last Admin: 05/15/20 11:25 Dose: 10 mg Documented by: Methylprednisolone Sodium Succinate (Methylprednisolone Sod Succinate 40 Mg/1 Ml Inj) 40 mg IV Q8HR [facility] Last Admin: 05/15/20 13:16 Dose: 40 mg Documented by: Nicotine (Nicotine 21 Mg/24 Hr Patch) 21 mg TD QDAY [facility] Last Admin: 05/15/20 11:24 Dose: 21 mg Documented by: Ondansetron HCl (Ondansetron 4 Mg/2 Ml Inj) 4 mg IV Q8H PRN PRN Reason: Nausea And Vomiting Oxycodone/Acetaminophen (Oxycodone /Acetaminophen 5-325mg Tab) 1 tab PO Q6H PRN PRN Reason: Pain, Moderate (4-6) Potassium Chloride (Potassium Chloride Er 20 Meq Tab) 20 meq PO Q12HR [facility] Last Admin: 05/15/20 11:25 Dose: 20 meq Documented by: Pravastatin Sodium (Pravastatin 20 Mg Tab) 10 mg PO QHS [facility] Sodium Chloride (Sodium Chloride 0.9% 10 Ml Flush Syringe) 10 ml IV BID [facility] Last Admin: 05/15/20 11:31 Dose: 10 ml Documented by: Sodium Chloride (Sodium Chloride 0.9% 10 Ml Flush Syringe) 10 ml IV PRN PRN PRN Reason: LINE FLUSH Last Admin: 05/15/20 05:40 Dose: 10 ml Documented by: Physical Examination Vital signs: Vital Signs Temp Pulse Resp BP Pulse Ox 98.1 F 113 H 20 141/60 98 05/14/20 15:03 05/14/20 15:03 05/14/20 15:03 05/14/20 15:03 05/14/20 15:03 Results - Laboratory Findings CBC and BMP: 05/15/20 04:14 05/15/20 04:14 PT/INR, D-dimer PT 15.9 Sec. (12.2-14.9) H 05/14/20 15:26 INR 1.27 (0.87-1.13) H 05/14/20 15:26 Abnormal lab findings: Abnormal Labs 05/14/20 05/14/20 05/14/20 15:22 15:26 15:26 RBC 3.09 L Hgb 10.5 L Hct 31.9 L MCV 103 H MCH 34 H Lymph % (Auto) 8.1 L [place] % (Auto) 14.1 H Lymph # (Auto) 0.5 L [place] # (Auto) 0.9 H Seg Neutrophils % 76.7 H PT 15.9 H INR 1.27 H Sodium 130 L Chloride 88.8 L BUN 6 L Creatinine Glucose 334 H Hemoglobin A1c Iron TIBC Transferrin AST 50 H Alkaline Phosphatase 214 H Albumin 3.2 L Urine WBC (Auto) 05/15/20 05/15/20 05/15/20 02:22 04:14 04:14 RBC 3.10 L Hgb 10.6 L Hct 32.5 L MCV 105 H MCH 34 H Lymph % (Auto) 4.9 L [place] % (Auto) Lymph # (Auto) 0.3 L [place] # (Auto) Seg Neutrophils % 88.0 H PT INR Sodium 132 L Chloride 91.0 L BUN 5 L Creatinine 0.6 L Glucose 236 H Hemoglobin A1c Iron TIBC Transferrin AST 45 H Alkaline Phosphatase 203 H Albumin 3.3 L Urine WBC (Auto) 70.0 H 05/15/20 05/15/20 04:14 07:47 RBC Hgb Hct MCV MCH Lymph % (Auto) [place] % (Auto) Lymph # (Auto) [place] # (Auto) Seg Neutrophils % PT INR Sodium Chloride BUN Creatinine Glucose Hemoglobin A1c 9.9 H Iron 36 L TIBC 191 L Transferrin 165 L AST Alkaline Phosphatase Albumin Urine WBC (Auto)
[2020-05-15] MEDS: INSULIN LISPRO 100 UNIT/ML SUB-Q SCH ×3 (13:49→23:08)
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
[2020-05-15] MEDS ORDERED: chlordiazePOXIDE 25 MG CAP PO PRN ×2 (16:27)
--- NOTE | 2020-05-15 17:39 | Cat Scan Report ---
CT abdomen pelvis wo con INDICATION: BLE and abd swelling. COMPARISON: None TECHNIQUE: Abdominal and pelvic CT exam performed. All CT scans at this location are performed using CT dose reduction for ALARA by means of automated exposure control. FINDINGS: CT ABDOMEN and PELVIS: Lung Bases: Dependent atelectasis. Liver: Decreased attenuation consistent with hepatic steatosis. Biliary: No significant abnormality. Spleen: Enlarged measuring 17 cm in anterior posterior dimension. Pancreas: No significant abnormality. Adrenals: No significant abnormality. Kidneys: No significant abnormality. Lymphatics: No lymphadenopathy. Vasculature: No significant abnormality. Bowel: No significant abnormality. Appendix is nonvisualized. However, no inflammatory changes in th e right lower quadrant to suggest appendicitis. Pelvis: No significant abnormality. Osseous Structures: No aggressive osseous lesion. Additional Findings: Moderate volume of ascites. IMPRESSION: 1. Diffuse hepatic steatosis. Mild splenomegaly and moderate volume of ascites which is possibly rela rod to underlying cirrhosis. Correlate clinically Signer Name: Alvaro Farris MD Signed: 05/15/2020 5:35 PM Workstation Name: [id number]
--- NOTE | 2020-05-15 18:08 | Gastroenterology Consultation ---
History of Present Illness - Reason for Consult Consult date: 05/15/20 abd distention, diarrhea Requesting physician: ILENE ROSENTHAL - History of Present Illness The patient is a 45 yo male with h/o morbid obesity, pulmonary htn and alcohol abuse who presents with progressive extremity (legs and arms) swelling, abd distention and sob. pt has had progressive swelling and abd distention last few weeks and has recently been unable to ambulate due to swelling. he has had progressive abd distention as well. reports diarrhea x 2 months, worse after meals, liquid bm's with occasional blood in camode and toilet paper with wipes. reports consuming ~9 beers per day, previously more. Past History Past Medical History: other (pulmonary htn, morbid obesity) Past Surgical History: No surgical history Social history: alcohol abuse Family history: no significant family history Medications and Allergies Allergies Allergy/AdvReac Type Severity Reaction Status Date / Time Iodinated Contrast Media Allergy Rash Verified 09/24/13 21:15 Home Medications Medication Instructions Recorded Confirmed Last Taken Type Aspirin 325 mg PO QDAY #30 tablet 09/26/13 04/23/18 Unknown Rx Famotidine [Pepcid] 20 mg PO BID #60 tablet 09/26/13 04/23/18 Unknown Rx Pravastatin Sodium [Pravastatin] 10 mg PO QHS #30 tablet 09/26/13 04/23/18 Unknown Rx amLODIPine 5 mg PO QDAY #30 tablet 09/26/13 04/23/18 Unknown Rx lisinopriL [Zestril TAB] 10 mg PO QDAY #30 tablet 09/26/13 04/23/18 04/22/18 Rx ALBUTEROL Inhaler(NF) [VENTOLIN 2 puff IH QID PRN #1 inha 04/25/18 Unknown Rx Inhaler(NF)] Benzonatate [Tessalon Perles] 100 mg PO Q8HR #30 capsule 04/25/18 Unknown Rx Nicotine [Habitrol] 21 mg TD QDAY #30 patch 04/25/18 Unknown Rx Prednisone [predniSONE 10 mg 10 mg PO .TAPER #1 tab.ds.pk 04/25/18 Unknown Rx (6-Day Pack, 21 Tabs)] Acetaminophen [Non-Aspirin Extra 500 mg PO Q6HR PRN #30 tablet 06/26/19 Unknown Rx Strength] Albuterol Sulfate [Proair 90 mcg IH Q4HR PRN #2 aer.pow.[id number] 06/26/19 Unknown Rx Respiclick] DOXYCYCLINE Hyclate [Vibramycin] 100 mg PO Q12HR #10 capsule 06/26/19 Unknown Rx Famotidine [Pepcid] 20 mg PO BID #60 tablet 06/26/19 Unknown Rx Fluticasone [Flonase] 1 spray NS QDAY #1 bottle 06/26/19 Unknown Rx Ipratropium (Nf) [Atrovent] 2 puff IH Q6HR PRN #1 inha 06/26/19 Unknown Rx Ipratropium [Atrovent NEB] 0.5 mg IH Q4HR #2 ml 06/26/19 Unknown Rx predniSONE [Deltasone] 40 mg PO QDAY #8 tab 06/26/19 Unknown Rx Active Meds: Active Medications Acetaminophen (Acetaminophen 325 Mg Tab) 650 mg PO Q4H PRN PRN Reason: Pain MILD(1-3)/Fever >100.5/MERAZ Albuterol (Albuterol 2.5 Mg/3 Ml Nebu) 2.5 mg IH Q3HRT PRN PRN Reason: Wheezing/ SOB Albuterol/Ipratropium (Ipratropium/Albuterol Sulfate 3 Ml Ampul.Neb) 1 ampul IH BID [facility] Amlodipine Besylate (Amlodipine 5 Mg Tab) 5 mg PO QDAY [facility] Last Admin: 05/15/20 11:31 Dose: 5 mg Documented by: Arformoterol Tartrate (Arformoterol 15 Mcg/2 Ml Nebu) 15 mcg IH Q12HRT [facility] Aspirin (Aspirin 325 Mg Tab) 325 mg PO QDAY [facility] Last Admin: 05/15/20 11:25 Dose: 325 mg Documented by: Benzonatate (Benzonatate 100 Mg Cap) 100 mg PO Q8HR [facility] Last Admin: 05/15/20 13:15 Dose: 100 mg Documented by: Budesonide (Budesonide 0.5 Mg/2 Ml Nebu) 0.5 mg IH Q12HRT [facility] Chlordiazepoxide HCl (Chlordiazepoxide 25 Mg Cap) 50 mg PO Q1HR PRN PRN Reason: CIWA-Ar 8-15 Chlordiazepoxide HCl (Chlordiazepoxide 25 Mg Cap) 100 mg PO Q1HR PRN PRN Reason: CIWA-Ar 16-25 Dextrose (Dextrose 50% In Water (25gm) 50 Ml Syringe) 50 ml IV Q30MIN PRN; Protocol PRN Reason: Hypoglycemia Famotidine (Famotidine 20 Mg Tab) 20 mg PO BID [facility] Last Admin: 05/15/20 11:25 Dose: 20 mg Documented by: Fluticasone Propionate (Fluticasone Propionate Nasal [place] 16 Gm) 50 mcg NS QDAY [facility] Last Admin: 05/15/20 11:24 Dose: 50 mcg Documented by: Furosemide (Furosemide 40 Mg/4 Ml Inj) 40 mg IV 0600,1800 [facility] Last Admin: 05/15/20 05:39 Dose: 40 mg Documented by: Heparin Sodium (Porcine) (Heparin 5,000 Unit/1 Ml Vial) 5,000 unit SUB-Q Q12HR [facility] Last Admin: 05/15/20 11:26 Dose: 5,000 unit Documented by: Hydromorphone HCl (Hydromorphone 1 Mg/1 Ml Inj) 0.5 mg IV Q3H PRN PRN Reason: Pain , Severe (7-10) Levofloxacin/Dextrose (Levaquin 750mg/150ml) 750 mg in 150 mls @ 100 mls/hr IV Q24HR [facility]; Protocol Last Admin: 05/15/20 11:23 Dose: 100 mls/hr Documented by: Insulin Human Lispro (Insulin Lispro 100 Unit/Ml) 0 unit SUB-Q ACHS [facility]; Protocol Last Admin: 05/15/20 16:56 Dose: 2 unit Documented by: Lisinopril (Lisinopril 10 Mg Tab) 10 mg PO QDAY [facility] Last Admin: 05/15/20 11:25 Dose: 10 mg Documented by: Methylprednisolone Sodium Succinate (Methylprednisolone Sod Succinate 40 Mg/1 Ml Inj) 40 mg IV BID [facility] Multivit/Ca Carb/B Cmplx/FA/Prenat (Folic Acid/Vit B Comp W-C 1 Mg (Renal Caps)) 1 cap PO QDAY [facility] Multivitamins (Multivitamins ,Therapeutic Tab) 1 each PO QDAY [facility] Nicotine (Nicotine 21 Mg/24 Hr Patch) 21 mg TD QDAY [facility] Last Admin: 05/15/20 11:24 Dose: 21 mg Documented by: Ondansetron HCl (Ondansetron 4 Mg/2 Ml Inj) 4 mg IV Q8H PRN PRN Reason: Nausea And Vomiting Oxycodone/Acetaminophen (Oxycodone /Acetaminophen 5-325mg Tab) 1 tab PO Q6H PRN PRN Reason: Pain, Moderate (4-6) Potassium Chloride (Potassium Chloride Er 20 Meq Tab) 20 meq PO Q12HR [facility] Last Admin: 05/15/20 11:25 Dose: 20 meq Documented by: Pravastatin Sodium (Pravastatin 20 Mg Tab) 10 mg PO QHS [facility] Sodium Chloride (Sodium Chloride 0.9% 10 Ml Flush Syringe) 10 ml IV BID [facility] Last Admin: 05/15/20 11:31 Dose: 10 ml Documented by: Sodium Chloride (Sodium Chloride 0.9% 10 Ml Flush Syringe) 10 ml IV PRN PRN PRN Reason: LINE FLUSH Last Admin: 05/15/20 05:40 Dose: 10 ml Documented by: Thiamine HCl (Thiamine 100 Mg Tab) 100 mg PO QDAY [facility] Reviewed/updated patient's home and current medications. Review of Systems - Review of Systems All systems: negative (per HPI) Exam - Constitutional Vital Signs: Temp Pulse Resp BP Pulse Ox 98.9 F 108 H 20 137/74 95 05/15/20 04:18 05/15/20 13:27 05/15/20 13:27 05/15/20 11:25 05/15/20 10:26 General appearance: obese - EENT Eyes: PERRL, EOM intact - Respiratory Respiratory: bilateral: diminished - Cardiovascular Rhythm: regular Heart Sounds: Present: S1 & S2 Extremity abnormal: edema - Gastrointestinal General gastrointestinal: Present: non-tender, distended - Neurologic Neurological: alert and oriented x3 - Labs CBC & Chem 7: 05/15/20 04:14 05/15/20 04:14 Lab Results: Laboratory Results - last 24 hr 05/15/20 05/15/20 05/15/20 02:22 04:14 04:14 WBC 5.9 RBC 3.10 L Hgb 10.6 L Hct 32.5 L MCV 105 H MCH 34 H MCHC 33 RDW 14.8 Plt Count 244 Lymph % (Auto) 4.9 L [place] % (Auto) 6.6 Eos % (Auto) 0.2 Baso % (Auto) 0.3 Lymph # (Auto) 0.3 L [place] # (Auto) 0.4 Eos # (Auto) 0.0 Baso # (Auto) 0.0 Seg Neutrophils % 88.0 H Seg Neutrophils # 5.2 Sodium 132 L Potassium 4.3 Chloride 91.0 L Carbon Dioxide 24 Anion Gap 21 BUN 5 L Creatinine 0.6 L Estimated GFR > 60 BUN/Creatinine Ratio 8 Glucose 236 H POC Glucose Hemoglobin A1c Calcium 8.8 Iron TIBC % Saturation Transferrin Total Bilirubin 0.90 AST 45 H ALT 23 Alkaline Phosphatase 203 H Total Protein 6.7 Albumin 3.3 L Albumin/Globulin Ratio 1.0 Vitamin B12 Urine Color [place] Urine Turbidity Slightly-cloudy Urine pH 6.0 Ur Specific [place] 1.018 Urine Protein 30 mg/dl Urine Glucose (UA) >=500 Urine Ketones 20 Urine Blood Lg Urine Nitrite Neg Urine Bilirubin Neg Urine Urobilinogen 2.0 Ur Leukocyte Esterase Sm Urine WBC (Auto) 70.0 H Urine RBC (Auto) > 182.0 U Epithel Cells (Auto) < 1.0 Urine Bacteria (Auto) 1+ Hyaline Casts 2 05/15/20 05/15/20 05/15/20 04:14 07:47 07:48 WBC RBC Hgb Hct MCV MCH MCHC RDW Plt Count Lymph % (Auto) [place] % (Auto) Eos % (Auto) Baso % (Auto) Lymph # (Auto) [place] # (Auto) Eos # (Auto) Baso # (Auto) Seg Neutrophils % Seg Neutrophils # Sodium Potassium Chloride Carbon Dioxide Anion Gap BUN Creatinine Estimated GFR BUN/Creatinine Ratio Glucose POC Glucose Hemoglobin A1c 9.9 H Calcium Iron 36 L TIBC 191 L % Saturation 18.85 Transferrin 165 L Total Bilirubin AST ALT Alkaline Phosphatase Total Protein Albumin Albumin/Globulin Ratio Vitamin B12 448.7 Urine Color Urine Turbidity Urine pH Ur Specific [place] Urine Protein Urine Glucose (UA) Urine Ketones Urine Blood Urine Nitrite Urine Bilirubin Urine Urobilinogen Ur Leukocyte Esterase Urine WBC (Auto) Urine RBC (Auto) U Epithel Cells (Auto) Urine Bacteria (Auto) Hyaline Casts 05/15/20 13:32 WBC RBC Hgb Hct MCV MCH MCHC RDW Plt Count Lymph % (Auto) [place] % (Auto) Eos % (Auto) Baso % (Auto) Lymph # (Auto) [place] # (Auto) Eos # (Auto) Baso # (Auto) Seg Neutrophils % Seg Neutrophils # Sodium Potassium Chloride Carbon Dioxide Anion Gap BUN Creatinine Estimated GFR BUN/Creatinine Ratio Glucose POC Glucose 305 H Hemoglobin A1c Calcium Iron TIBC % Saturation Transferrin Total Bilirubin AST ALT Alkaline Phosphatase Total Protein Albumin Albumin/Globulin Ratio Vitamin B12 Urine Color Urine Turbidity Urine pH Ur Specific [place] Urine Protein Urine Glucose (UA) Urine Ketones Urine Blood Urine Nitrite Urine Bilirubin Urine Urobilinogen Ur Leukocyte Esterase Urine WBC (Auto) Urine RBC (Auto) U Epithel Cells (Auto) Urine Bacteria (Auto) Hyaline Casts Assessment and Plan 1. Abd distention - likely abd wall swelling but also ? ascites. CT scan pending per primary. has h/o alcohol abuse so unable to r/o liver disease. 2. Diarrhea - appears chronic (2 months), stool studies pending per primary 3. Hematochezia - with wipes suggestive of outlet/hemorrhoidal source. H/H stable. no overt bleeding will follow
[2020-05-15 18:47] LABS: Albumin 3.6 g/dL (3.9-5); Bilirubin,Direct 0.5 mg/dL (0-0.2)
[2020-05-15] MEDS: BUDESONIDE 0.5 MG/2 ML NEBU IH SCH (20:31)
[2020-05-15] MEDS: ARFORMOTEROL 15 MCG/2 ML NEBU IH SCH (20:31)
--- NOTE | 2020-05-15 20:37 | Consultation ---
PULMONARY CONSULT NOTE CONSULTING PHYSICIAN: Dr. Jansen. REASON FOR CONSULTATION: COPD. CHIEF COMPLAINT AND HISTORY OF PRESENT ILLNESS: The patient is a now 45-year-old morbidly obese male with a past medical history significant amongst other things for a diagnosis of COPD and pulmonary hypertension, who was brought in via EMS from his home with complaints of generalized swelling, especially to his lower extremities bilaterally, complained of pain to both legs and feet with associated shortness of breath and some intermittent chest tightness, a feeling of being unable to get the oxygen, the air into his chest. It had been going on for about a couple of months. In particular, the abdominal pain, but was becoming more intense, so he came into the Emergency Room. He denies any relationship to meals with his pain. He is unable to define to me relieving or aggravating factors. He is not on home oxygen therapy. He does have a 10+ pack year tobacco smoking history, but tells me he quit smoking in the past 1 year. He also has a history of obstructive sleep apnea for which he is on CPAP therapy. He was evaluated in the Emergency Room. He states he has been taking his medications, which included his home Lasix diuretic dose. Post-evaluation, he was admitted for further workup of the abdominal pain and we are asked to assist with management of the COPD. When I stopped by to see him, he was resting in bed, lying flat in bed, in no significant orthopnea, he was getting a breathing treatment. He denied gross or streaky hemoptysis. He denied any known contacts with anyone with COVID-19 infection. He denies any other bleeding disorder. The above is as much of the history of presentation as I have. PAST MEDICAL HISTORY: Again, morbid obesity, chronic obstructive pulmonary disease, pulmonary hypertension, history of coronary artery disease, questionable history of heart failure. PAST SURGICAL HISTORY: Unknown medications. He does deny any intraabdominal surgery. MEDICATIONS: He was on at the time I stopped by to see him, according to the medication administration record included the following: Tylenol 650 mg p.o. q. 4 hours p.r.n. mild pain or fevers, DuoNeb nebulizer treatments nebulized q.i.d., amlodipine 5 mg p.o. daily, aspirin 325 mg p.o. daily, benzonatate Tessalon Perles 100 mg p.o. q. 8 hours, Rocephin 1 gram IV daily, Pepcid 20 mg p.o. b.i.d., Flonase 50 mcg each nostril daily, Lasix 40 mg IV b.i.d., heparin 5000 units subQ q. 12 hours, Dilaudid 0.5 mg IV q. 3 hours p.r.n. for severe pain, insulin via sliding scale, Levaquin 750 mg IV daily, Zestril 10 mg p.o. daily, Solu-Medrol 40 mg IV q. 8 hours, nicotine 21 mg transdermal patch daily and Percocet 5/325 mg p.o. q. 6 hours p.r.n. moderate pain, potassium chloride 20 mEq p.o. q. 12 hours, Pravachol 10 mg p.o. at bedtime. ALLERGIES: IODINE. Nature of this allergy is unknown. DIET: Morbidly obese. Denies acute weight loss or gain in the preceding few weeks to months. FAMILY AND SOCIAL HISTORY: Lives in the community, has a 10+ pack year tobacco smoking history. Denies alcohol or illicit drug use or abuse. FAMILY HISTORY: Otherwise, noncontributory. REVIEW OF SYSTEMS: No loss of consciousness. No new onset seizures. No new onset focal weakness. He does complain of hematochezia. Denies melena. He denies hematemesis. He denies hemoptysis. He denies heat or cold intolerance. Denies polydipsia. Denies polyuria. Denies any real fevers or chills. Complete 13-system review of systems obtained. Pertinent positives and/or negatives as in body of history above, otherwise noncontributory. PHYSICAL EXAMINATION: VITAL SIGNS: At presentation, he was afebrile, temperature 98.1 degrees Fahrenheit, pulse of 113, respiratory rate of 20, blood pressure 141/60, O2 sats at the time I saw him was 99%, that was on 1 liter nasal cannula. GENERAL: Middle-aged, morbidly obese male. Normocephalic, atraumatic, talking to me with mostly full sentences, but with mildly increased respiratory effort at rest. HEAD, EYES, EARS, NOSE AND THROAT: Anicteric. No conjunctival erythema. Oropharynx was moist. Mallampati #4 oropharynx. No gross jugular venous distention, no thyromegaly. He does have a large neck circumference. Grossly, there were no palpable lymph nodes in the supraclavicular or submandibular lymph node chains. LUNGS: Auscultation of both lung priest significant for diminished bilateral breath sounds, prolonged expiratory phase; however, no wheezing. HEART: Heart sounds 1 and 2 are heard, regular rate and rhythm at the time of my evaluation without overt rubs or murmurs. ABDOMEN: Soft, full, protuberant. Bowel sounds are positive, but hypoactive. He is tender to touch diffusely really. No palpable hepatosplenomegaly, but I was unable to really press down on the abdomen. EXTREMITIES: Without overt digital clubbing or cyanosis. He does have trace pedal edema bilaterally. NEUROLOGIC: Pupils are equal, round, about 3 mm, reactive to light. Extraocular muscle movements are intact. He moves all 4 extremities spontaneously. SKIN: Normal turgor in the areas examined without overt cellulitis or rash. Please see the wound care nurse's notes for full description of his skin. PSYCHIATRIC: His mood was normal. His affect was anxious. He had intact judgment and insight. LABORATORY DATA: From my review are as follows: Admission white cell count 6700, hemoglobin 10.5, hematocrit 31.9, platelet count 286. No manual differential. INR 1.27. Serum sodium 130, potassium 5.0, chloride 89, bicarbonate 24, BUN 6, creatinine 0.8, glucose was 334, AST up at 50, alkaline phosphatase slightly elevated at 214, albumin 3.2. Urinalysis was done, which showed large amount of blood, small leukocyte esterase and 70 white cells per high power field. No microbiology studies have been done. Radiographic studies have been reviewed. A chest x-ray was done that essentially shows slight hyperinflation with overall small lung volumes compared to his body habitus. No acute findings. No change since 06/2019. An echocardiogram was also done, the report is pending. Bilateral lower extremity Dopplers were done, they were negative for DVT. ASSESSMENT: 1. Abdominal pain, unspecified. 2. Acute exacerbation of chronic obstructive pulmonary disease. 3. Possible heart failure. 4. Morbid obesity. 5. Obstructive sleep apnea. 6. Pulmonary hypertension. 7. Anemia that is microcytic. PLAN: I do agree with current treatments. I will, however, reduce the frequency of the DuoNeb treatments to b.i.d. and add long-acting bronchodilators as well as inhaled corticosteroids. I will reduce the Solu-Medrol to 40 mg IV q. 12 and taper quickly from there. A CT of the abdomen and pelvis has been ordered that is appropriate. A General Surgery consult should be considered to evaluate the abdomen just based on the clinical examination, he also seems to have a urinary tract infection based on the urinalysis. I will go ahead and order urine cultures. In the meantime, we will continue therapy with Levaquin. I will also get a CRP level despite the normal white count, just to monorail helper clinical decision making. He is appropriately on GI and DVT prophylaxis. I will begin empiric bilevel positive air pressure ventilation therapy 18/10 with a backup rate of 10 at bedtime. Flu and pneumonia vaccination will be addressed per protocol. Thank you very much for the consult. We will follow along. I should mention continued tobacco abstinence has been counseled. We will continue tobacco replacement as it seems that he may have given the ordering physician a different tobacco smoking history. JOB# [id number] TRINIDAD/OLINDA ROSALES
[2020-05-15] MEDS ORDERED: NON-FORMULARY EACH (Pravastatin Sodium [Pravastatin] 10 MG Tablet) PO SCH (22:00)
[2020-05-15] MEDS: PRAVASTATIN 20 MG TAB PO SCH (23:03)
[2020-05-16] MEDS: FUROSEMIDE 40 MG/4 ML INJ IV SCH ×2 (05:30→17:15)
[2020-05-16] MEDS: BENZONATATE 100 MG CAP PO SCH ×3 (05:30→22:52)
[2020-05-16 05:36] LABS: BUN/Creatinine Ratio 16; Blood Urea Nitrogen 14 mg/dL (9-20); Calcium 9.3 mg/dL (8.4-10.2); Hemolysis Index 0
[2020-05-16] MEDS: INSULIN LISPRO 100 UNIT/ML SUB-Q SCH ×4 (07:30→22:49)
[2020-05-16] MEDS: methylPREDNISolone Sod Succinate 40 MG/1 ML INJ IV SCH ×2 (10:00→22:50)
[2020-05-16] MEDS: FLUTICASONE PROPIONATE NASAL SPRAY 16 GM NS SCH (10:00)
[2020-05-16] MEDS: amLODIPine 5 MG TAB PO SCH (10:00)
[2020-05-16] MEDS: NICOTINE 21 MG/24 HR PATCH TD SCH (10:00)
[2020-05-16] MEDS: HEPARIN 5,000 UNIT/1 ML VIAL SUB-Q SCH ×2 (10:00→22:50)
[2020-05-16] MEDS: LISINOPRIL 10 MG TAB PO SCH (10:00)
[2020-05-16] MEDS: POTASSIUM CHLORIDE ER 20 MEQ TAB PO SCH ×2 (10:00→22:53)
[2020-05-16] MEDS: THIAMINE 100 MG TAB PO SCH (10:00)
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
[2020-05-16] MEDS: IPRATROPIUM/ALBUTEROL SULFATE 3 ML AMPUL.NEB IH SCH ×2 (10:37→20:54)
[2020-05-16] MEDS: BUDESONIDE 0.5 MG/2 ML NEBU IH SCH ×2 (10:37→20:54)
[2020-05-16] MEDS: ARFORMOTEROL 15 MCG/2 ML NEBU IH SCH ×2 (10:42→20:53)
[2020-05-16] MEDS: FOLIC ACID/VIT B COMP W-C 1 MG (RENAL CAPS) PO SCH (10:59)
[2020-05-16] MEDS: ASPIRIN 325 MG TAB PO SCH (11:00)
[2020-05-16] MEDS: FAMOTIDINE 20 MG TAB PO SCH ×2 (11:00→22:53)
[2020-05-16] MEDS: MULTIVITAMINS ,THERAPEUTIC TAB PO SCH (11:00)
--- NOTE | 2020-05-16 13:52 | Progress Note ---
Assessment and Plan Abdominal pain, unspecified. Acute exacerbation of chronic obstructive pulmonary disease. Possible heart failure. Morbid obesity. Obstructive sleep apnea. Pulmonary hypertension. Anemia that is microcytic - continue to wean supplemental oxygen to keep O2 sats > 90% - continue bronchodilators (JENNY & LABA) with pulm hygiene per RT - continue systemic steroids with slow taper - continue inhaled corticosteroids - continue NIV scheduled qhs re: ANGELIA - avoid nephrotoxins, renally dose all medications - continue mobility protocols to prevent pressure ulcers - PT/OT as tolerated - Wound care per RN/WCT - accuchecks with glycemic control per SSI for target blood glucose < 180 mg/dL - Smoking abstinence strongly counseled at the bedside - home oxygen evaluation at discharge - GI & VTE prophylaxis - Flu & pneumovax per protocol - Pulmonary out patient follow up for PFTs and optimization of respiratory status - continue other care per attending / other consultants - prn analgesia per pain score ... re-evaluate in am & prn Subjective Date of service: 05/16/20 Principal diagnosis: Abdominal pain, alcohol abuse, abdominal distention. Interval history: Patient is seen today for: Abdominal pain, unspecified; AE-COPD; Possible heart failure; Morbid obesity; ANGELAI; Pulmonary HTN (Mild) Seen and examined at bedside; 24hour events reviewed; nursing and respiratory care staff consulted; no adverse overnight events reported to me; resting peacefully in bed; looks and feels better; abdominal pain mostly gone; tolerating NIV qhs; no N/V/F/C today Objective Vital Signs - 12hr 05/16/20 05/16/20 05:10 08:13 Temperature 98.0 F 97.3 F L Pulse Rate 100 H 99 H Respiratory 18 18 Rate Blood Pressure 117/61 131/70 O2 Sat by Pulse 98 98 Oximetry Constitutional: no acute distress, alert, other (middle aged obese male with mildly increased respiratopry effort at rest) Eyes: non-icteric ENT: oropharynx moist Neck: supple, no lymphadenopathy, no JVD Effort: mildly labored Ascultation: Bilateral: diminished breath sounds, rhonchi (scant) Percussion: Bilateral: not dull Cardiovascular: regular rate and rhythm Gastrointestinal: normoactive bowel sounds, soft, non-tender, non-distended (protuberant) Integumentary: normal Extremities: no cyanosis, pink and warm, pulses normal, edema (trace) Neurologic: normal mental status, non-focal exam, pupils equal and round, motor strength normal and Psychiatric: mood appropriate, affect normal CBC and BMP: 05/15/20 04:14 05/18/20 07:46 ABG, PT/INR, D-dimer: PT/INR, D-dimer PT 15.9 Sec. (12.2-14.9) H 05/14/20 15:26 INR 1.27 (0.87-1.13) H 05/14/20 15:26 Abnormal lab findings: Abnormal Labs 05/14/20 05/14/20 05/14/20 15:22 15:26 15:26 RBC 3.09 L Hgb 10.5 L Hct 31.9 L MCV 103 H MCH 34 H Lymph % (Auto) 8.1 L Gentry % (Auto) 14.1 H Lymph # (Auto) 0.5 L Gentry # (Auto) 0.9 H Seg Neutrophils % 76.7 H PT 15.9 H INR 1.27 H Sodium 130 L Potassium Chloride 88.8 L Carbon Dioxide BUN 6 L Creatinine Glucose 334 H POC Glucose Hemoglobin A1c Iron TIBC Transferrin Direct Bilirubin AST 50 H Alkaline Phosphatase 214 H Albumin 3.2 L Amylase Urine WBC (Auto) 05/15/20 05/15/20 05/15/20 02:22 04:14 04:14 RBC 3.10 L Hgb 10.6 L Hct 32.5 L MCV 105 H MCH 34 H Lymph % (Auto) 4.9 L Gentry % (Auto) Lymph # (Auto) 0.3 L Gentry # (Auto) Seg Neutrophils % 88.0 H PT INR Sodium 132 L Potassium Chloride 91.0 L Carbon Dioxide BUN 5 L Creatinine 0.6 L Glucose 236 H POC Glucose Hemoglobin A1c Iron TIBC Transferrin Direct Bilirubin AST 45 H Alkaline Phosphatase 203 H Albumin 3.3 L Amylase Urine WBC (Auto) 70.0 H 05/15/20 05/15/20 05/15/20 04:14 07:47 13:32 RBC Hgb Hct MCV MCH Lymph % (Auto) Gentry % (Auto) Lymph # (Auto) Gentry # (Auto) Seg Neutrophils % PT INR Sodium Potassium Chloride Carbon Dioxide BUN Creatinine Glucose POC Glucose 305 H Hemoglobin A1c 9.9 H Iron 36 L TIBC 191 L Transferrin 165 L Direct Bilirubin AST Alkaline Phosphatase Albumin Amylase Urine WBC (Auto) 05/15/20 05/15/20 05/16/20 17:34 22:06 04:26 RBC Hgb Hct MCV MCH Lymph % (Auto) Gentry % (Auto) Lymph # (Auto) Gentry # (Auto) Seg Neutrophils % PT INR Sodium 134 L Potassium 5.4 H D Chloride 91.6 L Carbon Dioxide 18 L BUN Creatinine Glucose 360 H POC Glucose 362 H Hemoglobin A1c Iron TIBC Transferrin Direct Bilirubin 0.5 H AST 55 H Alkaline Phosphatase 201 H Albumin 3.6 L Amylase 10 L Urine WBC (Auto) 05/16/20 08:12 RBC Hgb Hct MCV MCH Lymph % (Auto) Gentry % (Auto) Lymph # (Auto) Gentry # (Auto) Seg Neutrophils % PT INR Sodium Potassium Chloride Carbon Dioxide BUN Creatinine Glucose POC Glucose 385 H Hemoglobin A1c Iron TIBC Transferrin Direct Bilirubin AST Alkaline Phosphatase Albumin Amylase Urine WBC (Auto) Additional Studies: CT abd/pelvis = ascites; cirrhosis
--- NOTE | 2020-05-16 14:21 | Gastroenterology Progress Note ---
Assessment and Plan GI: pt multiple medical problems, noted alcohol abuse now with abdominal swelling with ct scan raising possible cirrhosis and moderate ascites - labs show slight increase coags, nl platelets, slight decrease albumin, not strongly but may be consistent with cirrhosis - would order LVP if stable and ok due to body habitus - liver related serologies - [facility] protocol - from GI/liver standpoint most of evaluation and management can be done as outpt - will follow Subjective Date of service: 05/16/20 Principal diagnosis: Abdominal pain, alcohol abuse, abdominal distention. Interval history: - reports still with some shortness of breath, denies specific GI complaints except improved loose stools Objective - Constitutional Vitals: Temp Pulse Resp BP Pulse Ox 97.3 F L 100 H 18 131/70 96 05/16/20 08:13 05/16/20 10:40 05/16/20 10:40 05/16/20 08:13 05/16/20 10:25 General appearance: no acute distress - EENT Eyes: PERRL - Respiratory Respiratory: bilateral: rhonchi - Cardiovascular Rhythm: regular Heart Sounds: Present: S1 & S2 - Gastrointestinal General gastrointestinal: Present: soft, non-tender, non-distended - Labs CBC & Chem 7: 05/15/20 04:14 05/16/20 04:26 Labs: Laboratory Results - last 24 hr 05/15/20 05/15/20 05/15/20 13:32 17:34 17:34 Sodium Potassium Chloride Carbon Dioxide Anion Gap BUN Creatinine Estimated GFR BUN/Creatinine Ratio Glucose POC Glucose 305 H Calcium Phosphorus 4.50 Magnesium 2.00 Total Bilirubin 0.80 Direct Bilirubin 0.5 H Indirect Bilirubin 0.3 AST 55 H ALT 27 Alkaline Phosphatase 201 H Ammonia 39.0 Total Protein 6.4 Albumin 3.6 L Albumin/Globulin Ratio 1.3 Amylase 10 L Lipase 20 05/15/20 05/16/20 05/16/20 22:06 04:26 08:12 Sodium 134 L Potassium 5.4 H D Chloride 91.6 L Carbon Dioxide 18 L Anion Gap 30 BUN 14 Creatinine 0.9 Estimated GFR > 60 BUN/Creatinine Ratio 16 Glucose 360 H POC Glucose 362 H 385 H Calcium 9.3 Phosphorus Magnesium Total Bilirubin Direct Bilirubin Indirect Bilirubin AST ALT Alkaline Phosphatase Ammonia Total Protein Albumin Albumin/Globulin Ratio Amylase Lipase
[2020-05-16] MEDS ORDERED: INSULIN GLARGINE 100 UNITS/ML SUB-Q SCH (22:00)
[2020-05-16] MEDS: PRAVASTATIN 20 MG TAB PO SCH (22:53)
[2020-05-17] MEDS: BENZONATATE 100 MG CAP PO SCH ×3 (06:47→22:07)
[2020-05-17] MEDS: FUROSEMIDE 40 MG/4 ML INJ IV SCH ×2 (06:47→18:28)
[2020-05-17] MEDS: BUDESONIDE 0.5 MG/2 ML NEBU IH SCH (08:10)
[2020-05-17] MEDS: ARFORMOTEROL 15 MCG/2 ML NEBU IH SCH ×2 (08:10→20:57)
[2020-05-17] MEDS: IPRATROPIUM/ALBUTEROL SULFATE 3 ML AMPUL.NEB IH SCH ×3 (08:11→20:57)
[2020-05-17] MEDS: INSULIN LISPRO 100 UNIT/ML SUB-Q SCH ×4 (08:45→22:08)
[2020-05-17] MEDS: FAMOTIDINE 20 MG TAB PO SCH ×2 (10:28→22:08)
[2020-05-17] MEDS: methylPREDNISolone Sod Succinate 40 MG/1 ML INJ IV SCH ×2 (10:28→22:08)
[2020-05-17] MEDS: LISINOPRIL 10 MG TAB PO SCH (10:29)
[2020-05-17] MEDS: ASPIRIN 325 MG TAB PO SCH (10:29)
[2020-05-17] MEDS: NICOTINE 21 MG/24 HR PATCH TD SCH (10:29)
[2020-05-17] MEDS: FOLIC ACID/VIT B COMP W-C 1 MG (RENAL CAPS) PO SCH (10:29)
[2020-05-17] MEDS: THIAMINE 100 MG TAB PO SCH (10:30)
[2020-05-17] MEDS: POTASSIUM CHLORIDE ER 20 MEQ TAB PO SCH ×2 (10:30→22:08)
[2020-05-17] MEDS: MULTIVITAMINS ,THERAPEUTIC TAB PO SCH (10:30)
[2020-05-17] MEDS: HEPARIN 5,000 UNIT/1 ML VIAL SUB-Q SCH ×2 (10:37→22:09)
[2020-05-17] MEDS: amLODIPine 5 MG TAB PO SCH (10:51)
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
--- NOTE | 2020-05-17 17:52 | Gastroenterology Progress Note ---
Assessment and Plan GI: pt multiple medical problems, noted alcohol abuse now with abdominal swelling with ct scan raising possible cirrhosis and moderate ascites - labs show slight increase coags, nl platelets, slight decrease albumin, not strongly but may be consistent with cirrhosis - ordered LVP if stable and ok due to body habitus - liver related serologies - [facility] protocol - from GI/liver standpoint most of evaluation and management can be done as out pt - will follow Subjective Date of service: 05/17/20 Principal diagnosis: Abdominal pain, alcohol abuse, abdominal distention. Interval history: - reports doing better. Still some abdominal discomfort Objective - Constitutional Vitals: Temp Pulse Resp BP Pulse Ox 97.6 F 112 H 18 145/80 99 05/17/20 16:39 05/17/20 16:39 05/17/20 16:39 05/17/20 16:39 05/17/20 16:39 General appearance: no acute distress - EENT Eyes: PERRL - Respiratory Respiratory: bilateral: CTA - Cardiovascular Rhythm: regular Heart Sounds: Present: S1 & S2 - Gastrointestinal General gastrointestinal: Present: soft, non-tender - Labs CBC & Chem 7: 05/15/20 04:14 05/16/20 04:26 Labs: Laboratory Results - last 24 hr 05/16/20 05/17/20 21:19 07:34 POC Glucose 351 H 356 H
[2020-05-17] MEDS: FLUTICASONE PROPIONATE NASAL SPRAY 16 GM NS SCH (18:28)
[2020-05-17] MEDS: INSULIN NPH/REGULAR 70/30 INJ SUB-Q SCH (18:32)
[2020-05-17] MEDS: PRAVASTATIN 20 MG TAB PO SCH (22:07)
[2020-05-18] MEDS: FUROSEMIDE 40 MG/4 ML INJ IV SCH ×2 (06:21→18:26)
[2020-05-18] MEDS: BENZONATATE 100 MG CAP PO SCH ×3 (06:21→23:15)
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
--- NOTE | 2020-05-18 08:28 | Gastroenterology Progress Note ---
Assessment and Plan GI: pt multiple medical problems, noted alcohol abuse now with abdominal swelling with ct scan raising possible cirrhosis and moderate ascites - labs show slight increase coags, nl platelets, slight decrease albumin, not strongly but may be consistent with cirrhosis -for LVP and related labs today - liver related serologies benign - diet as tolerated - from GI/liver standpoint most of evaluation and management can be done as outpt especially if get lvp today - will follow Subjective Date of service: 05/18/20 Principal diagnosis: Abdominal pain, alcohol abuse, abdominal distention. Interval history: - reports overall feeling better. Abdominal pain improving Objective - Constitutional Vitals: Temp Pulse Resp BP Pulse Ox 97.2 F L 107 H 20 121/64 98 05/18/20 04:36 05/18/20 04:36 05/18/20 04:36 05/18/20 04:36 05/18/20 04:36 General appearance: no acute distress - EENT Eyes: PERRL - Respiratory Respiratory: bilateral: wheezing - Cardiovascular Rhythm: regular Heart Sounds: Present: S1 & S2 - Gastrointestinal General gastrointestinal: Present: soft, non-tender, non-distended - Labs CBC & Chem 7: 05/15/20 04:14 05/16/20 04:26 Labs: Laboratory Results - last 24 hr 05/17/20 05/17/20 05/17/20 07:34 12:08 16:37 POC Glucose 356 H 344 H 371 H 05/17/20 21:17 POC Glucose 357 H
[2020-05-18 08:45] LABS: BUN/Creatinine Ratio 18; Blood Urea Nitrogen 18 mg/dL (9-20); Calcium 9.3 mg/dL (8.4-10.2); Hemolysis Index 5
[2020-05-18] MEDS: BUDESONIDE 0.5 MG/2 ML NEBU IH SCH ×3 (09:05→20:11)
[2020-05-18] MEDS: ARFORMOTEROL 15 MCG/2 ML NEBU IH SCH ×2 (09:05→20:12)
[2020-05-18] MEDS: IPRATROPIUM/ALBUTEROL SULFATE 3 ML AMPUL.NEB IH SCH ×3 (09:06→20:12)
[2020-05-18] MEDS: FLUTICASONE PROPIONATE NASAL SPRAY 16 GM NS SCH (10:39)
[2020-05-18] MEDS: INSULIN NPH/REGULAR 70/30 INJ SUB-Q SCH ×2 (10:40→18:26)
[2020-05-18] MEDS: INSULIN LISPRO 100 UNIT/ML SUB-Q SCH ×4 (10:41→23:25)
[2020-05-18] MEDS: methylPREDNISolone Sod Succinate 40 MG/1 ML INJ IV SCH ×2 (10:48→23:15)
[2020-05-18] MEDS: THIAMINE 100 MG TAB PO SCH (10:58)
[2020-05-18] MEDS: amLODIPine 5 MG TAB PO SCH (10:58)
[2020-05-18] MEDS: FAMOTIDINE 20 MG TAB PO SCH ×2 (10:58→23:15)
[2020-05-18] MEDS: ASPIRIN 325 MG TAB PO SCH (10:58)
[2020-05-18] MEDS: FOLIC ACID/VIT B COMP W-C 1 MG (RENAL CAPS) PO SCH (10:58)
[2020-05-18] MEDS: HEPARIN 5,000 UNIT/1 ML VIAL SUB-Q SCH ×2 (10:59→23:15)
[2020-05-18] MEDS: NICOTINE 21 MG/24 HR PATCH TD SCH (11:00)
[2020-05-18] MEDS: MULTIVITAMINS ,THERAPEUTIC TAB PO SCH (11:27)
[2020-05-18] MEDS: LISINOPRIL 10 MG TAB PO SCH (11:28)
--- NOTE | 2020-05-18 13:01 | Procedure Note ---
Date of procedure: 05/18/20 Pre-op diagnosis: ascites Post-op diagnosis: same Procedure: US paracentesis Findings: modrate ascites Anesthesia: local Surgeon: CINDY CAMARGO Estimated blood loss: none Pathology: list (120cc) Specimen disposition: to lab Condition: stable Disposition: floor
--- NOTE | 2020-05-18 13:43 | Ultrasound Report ---
ULTRASOUND-GUIDED PARACENTESIS HISTORY: ascites. PROCEDURE: The risks (including but not limited to bleeding, infection, and bowel injury) and benefi ts were explained to the patient and informed consent was obtained. A time out procedure was perform ed. Ultrasound was used to evaluate the abdomen and locate the largest ascites fluid pocket. Once the sk in was marked, the procedure site was prepped and draped in the usual sterile fashion and lidocaine w as used for local anesthesia. A skin elfego was made and a 5 [place] centesis catheter was placed. The patient was monitored closely throughout the procedure, and a total of 3400 mL of clear yellow fluid was aspirated. Samples were sent to the lab for further evaluation per the primary clinicians order s. The patient tolerated the procedure well with no complications. IMPRESSION: Successful ultrasound-guided paracentesis as described. Signer Name: John Kapoor Jr, MD Signed: 05/18/2020 1:39 PM Workstation Name: [id number]
--- NOTE | 2020-05-18 14:21 | Progress Note ---
Assessment and Plan Patient alert, awake resting on 2 litres O2. O2 saturation 99%. No complaint of chest pain, shortness of breath or cough at this time.No acute respiratory distress. patient afebrile. has no leukocytosis. Chest xray done 05/14/20 reported No acute findings. Patient has history of smoking 1 pack x 25 years. Stopped smoking 1 year ago. Drinks alcohol. Denies drug abuse. 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 Recommend to place him on CPAP during night time using same pressure that he is using at home. If do not know the pressure, start at 10 cm H20 Pressure. Patient he is admitted for swelling of body, legs and abdomen. Patients swelling some what better now. Patient presently on albuterol/atrovent aerosol treatments, I/V solumedrol. levaquin, S/C Heparin and famotidine. - Patient Problems (1) COPD with exacerbation Current Visit: Yes Status: Acute Plan to address problem: O2 2 litres via nasal canula. Albuterol/atrovent aerosol treatments q 6 hours. I/V solumedrol S/C Heparin. Famotidine. I/V Levaquin. (2) Anasarca Current Visit: Yes Status: Acute Plan to address problem: Patient is on lasix. Management as per primary care. (3) Dyspnea Current Visit: Yes Status: Acute Qualifiers: Dyspnea type: shortness of breath Plan to address problem: O2 2 litres via nasal canula. Albuterol/atrovent aerosol treatments q 6 hours. I/V solumedrol S/C Heparin. Famotidine. I/V Levaquin I/V Lasix. ABGs on room air. PFTs as out patient. (4) Hypoalbuminemia Current Visit: Yes Status: Acute Plan to address problem: Management as per primary care. (5) Pulmonary hypertension Current Visit: Yes Status: Acute Plan to address problem: Optimize the treatment for COPD and Sleep apnea. (6) Morbid obesity with BMI of 40.0-44.9, adult Current Visit: Yes Status: Chronic Plan to address problem: Recommend to loose weight. Exercise and diet. Use CPAP as he is using at night. (7) HTN (hypertension) Current Visit: No Status: Chronic Plan to address problem: Management as per primary care. (8) Tobacco use Current Visit: No Status: Chronic Plan to address problem: Patient said he stopped smoking 1 year ago. Subjective Date of service: 05/18/20 Principal diagnosis: Abdominal pain, alcohol abuse, abdominal distention. Interval history: Patient alert, awake resting on 2 litres O2. O2 saturation 99%. No complaint of chest pain, shortness of breath or cough at this time.No acute respiratory distress. patient afebrile. has no leukocytosis. Chest xray done 05/14/20 reported No acute findings. Patient has history of smoking 1 pack x 25 years. Stopped smoking 1 year ago. Drinks alcohol. Denies drug abuse. 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 Recommend to place him on CPAP during night time using same pressure that he is using at home. If do not know the pressure, start at 10 cm H20 Pressure. Patient he is admitted for swelling of body, legs and abdomen. Patients swelling some what better now. Patient presently on albuterol/atrovent aerosol treatments, I/V solumedrol. levaquin, S/C Heparin and famotidine. Objective Vital Signs - 12hr 05/18/20 05/18/20 05/18/20 04:36 08:23 09:04 Temperature 97.2 F L 98.6 F Pulse Rate 107 H 100 H Pulse Rate [ Anterior Bilateral Throughout] Respiratory 20 20 Rate Respiratory Rate [Anterior Bilateral Throughout] Blood Pressure 121/64 147/87 O2 Sat by Pulse 98 98 99 Oximetry 05/18/20 05/18/20 05/18/20 09:06 10:58 11:28 Temperature Pulse Rate 92 H 92 H Pulse Rate [ 101 H Anterior Bilateral Throughout] Respiratory Rate Respiratory 18 Rate [Anterior Bilateral Throughout] Blood Pressure 145/80 145/80 O2 Sat by Pulse Oximetry 05/18/20 11:54 Temperature 98.6 F Pulse Rate 99 H Pulse Rate [ Anterior Bilateral Throughout] Respiratory 18 Rate Respiratory Rate [Anterior Bilateral Throughout] Blood Pressure 148/90 O2 Sat by Pulse 99 Oximetry Constitutional: no acute distress, alert Eyes: non-icteric Neck: supple, no lymphadenopathy Effort: normal Ascultation: Bilateral: diminished breath sounds, other (Prolonged expiratory phase.) Cardiovascular: regular rate and rhythm Gastrointestinal: normoactive bowel sounds, soft, non-tender Integumentary: normal Extremities: edema Neurologic: normal mental status, non-focal exam, pupils equal and round, CN II- XII normal Psychiatric: mood appropriate CBC and BMP: 05/15/20 04:14 05/18/20 07:46 ABG, PT/INR, D-dimer: PT/INR, D-dimer PT 15.9 Sec. (12.2-14.9) H 05/14/20 15:26 INR 1.27 (0.87-1.13) H 05/14/20 15:26 Abnormal lab findings: Abnormal Labs 05/14/20 05/14/20 05/14/20 15:22 15:26 15:26 RBC 3.09 L Hgb 10.5 L Hct 31.9 L MCV 103 H MCH 34 H Lymph % (Auto) 8.1 L Crisp % (Auto) 14.1 H Lymph # (Auto) 0.5 L Crisp # (Auto) 0.9 H Seg Neutrophils % 76.7 H PT 15.9 H INR 1.27 H Sodium 130 L Potassium Chloride 88.8 L Carbon Dioxide BUN 6 L Creatinine Glucose 334 H POC Glucose Hemoglobin A1c Iron TIBC Transferrin Direct Bilirubin AST 50 H Alkaline Phosphatase 214 H Albumin 3.2 L Amylase Urine WBC (Auto) 05/15/20 05/15/20 05/15/20 02:22 04:14 04:14 RBC 3.10 L Hgb 10.6 L Hct 32.5 L MCV 105 H MCH 34 H Lymph % (Auto) 4.9 L Crisp % (Auto) Lymph # (Auto) 0.3 L Crisp # (Auto) Seg Neutrophils % 88.0 H PT INR Sodium 132 L Potassium Chloride 91.0 L Carbon Dioxide BUN 5 L Creatinine 0.6 L Glucose 236 H POC Glucose Hemoglobin A1c Iron TIBC Transferrin Direct Bilirubin AST 45 H Alkaline Phosphatase 203 H Albumin 3.3 L Amylase Urine WBC (Auto) 70.0 H 05/15/20 05/15/20 05/15/20 04:14 07:47 13:32 RBC Hgb Hct MCV MCH Lymph % (Auto) Crisp % (Auto) Lymph # (Auto) Crisp # (Auto) Seg Neutrophils % PT INR Sodium Potassium Chloride Carbon Dioxide BUN Creatinine Glucose POC Glucose 305 H Hemoglobin A1c 9.9 H Iron 36 L TIBC 191 L Transferrin 165 L Direct Bilirubin AST Alkaline Phosphatase Albumin Amylase Urine WBC (Auto) 05/15/20 05/15/20 05/16/20 17:34 22:06 04:26 RBC Hgb Hct MCV MCH Lymph % (Auto) Crisp % (Auto) Lymph # (Auto) Crisp # (Auto) Seg Neutrophils % PT INR Sodium 134 L Potassium 5.4 H D Chloride 91.6 L Carbon Dioxide 18 L BUN Creatinine Glucose 360 H POC Glucose 362 H Hemoglobin A1c Iron TIBC Transferrin Direct Bilirubin 0.5 H AST 55 H Alkaline Phosphatase 201 H Albumin 3.6 L Amylase 10 L Urine WBC (Auto) 05/16/20 05/16/20 05/16/20 08:12 12:27 16:29 RBC Hgb Hct MCV MCH Lymph % (Auto) Crisp % (Auto) Lymph # (Auto) Crisp # (Auto) Seg Neutrophils % PT INR Sodium Potassium Chloride Carbon Dioxide BUN Creatinine Glucose POC Glucose 385 H 335 H 294 H Hemoglobin A1c Iron TIBC Transferrin Direct Bilirubin AST Alkaline Phosphatase Albumin Amylase Urine WBC (Auto) 05/16/20 05/17/20 05/17/20 21:19 07:34 12:08 RBC Hgb Hct MCV MCH Lymph % (Auto) Crisp % (Auto) Lymph # (Auto) Crisp # (Auto) Seg Neutrophils % PT INR Sodium Potassium Chloride Carbon Dioxide BUN Creatinine Glucose POC Glucose 351 H 356 H 344 H Hemoglobin A1c Iron TIBC Transferrin Direct Bilirubin AST Alkaline Phosphatase Albumin Amylase Urine WBC (Auto) 05/17/20 05/17/20 05/18/20 16:37 21:17 07:26 RBC Hgb Hct MCV MCH Lymph % (Auto) Crisp % (Auto) Lymph # (Auto) Crisp # (Auto) Seg Neutrophils % PT INR Sodium Potassium Chloride Carbon Dioxide BUN Creatinine Glucose POC Glucose 371 H 357 H 347 H Hemoglobin A1c Iron TIBC Transferrin Direct Bilirubin AST Alkaline Phosphatase Albumin Amylase Urine WBC (Auto) 05/18/20 07:46 RBC Hgb Hct MCV MCH Lymph % (Auto) Crisp % (Auto) Lymph # (Auto) Crisp # (Auto) Seg Neutrophils % PT INR Sodium 136 L Potassium Chloride 92.0 L Carbon Dioxide 21 L BUN Creatinine Glucose 376 H POC Glucose Hemoglobin A1c Iron TIBC Transferrin Direct Bilirubin AST Alkaline Phosphatase Albumin Amylase Urine WBC (Auto) Chest x-ray: report reviewed, image reviewed Additional Studies: CHEST 1 VIEW 05/14/20 INDICATION: DYSPNEA. COMPARISON: 06/26/2019 FINDINGS: Support devices: None. Heart: Within normal limits. Lungs/Pleura: No acute air space or interstitial disease. Additional findings: None. IMPRESSION: No acute findings or change since 06/26/2019.
[2020-05-18 15:37] LABS: Total Cells Counted 100 /mm3
[2020-05-18] MEDS: PRAVASTATIN 20 MG TAB PO SCH (23:15)
[2020-05-19] MEDS: IPRATROPIUM/ALBUTEROL SULFATE 3 ML AMPUL.NEB IH SCH ×4 (06:13→23:11)
[2020-05-19] MEDS: BENZONATATE 100 MG CAP PO SCH ×3 (07:04→21:07)
[2020-05-19] MEDS: FUROSEMIDE 40 MG/4 ML INJ IV SCH ×2 (07:04→17:38)
[2020-05-19] MEDS: ARFORMOTEROL 15 MCG/2 ML NEBU IH SCH ×2 (08:14→19:53)
[2020-05-19] MEDS: BUDESONIDE 0.5 MG/2 ML NEBU IH SCH ×2 (08:14→19:53)
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
[2020-05-19] MEDS: INSULIN LISPRO 100 UNIT/ML SUB-Q SCH ×4 (10:42→21:16)
[2020-05-19] MEDS: INSULIN NPH/REGULAR 70/30 INJ SUB-Q SCH ×2 (10:42→17:39)
[2020-05-19] MEDS: FLUTICASONE PROPIONATE NASAL SPRAY 16 GM NS SCH (10:43)
[2020-05-19] MEDS: NICOTINE 21 MG/24 HR PATCH TD SCH (10:45)
[2020-05-19] MEDS: FOLIC ACID/VIT B COMP W-C 1 MG (RENAL CAPS) PO SCH (10:46)
[2020-05-19] MEDS: ASPIRIN 325 MG TAB PO SCH (10:46)
[2020-05-19] MEDS: FAMOTIDINE 20 MG TAB PO SCH ×2 (10:46→21:07)
[2020-05-19] MEDS: methylPREDNISolone Sod Succinate 40 MG/1 ML INJ IV SCH ×2 (10:46→22:32)
[2020-05-19] MEDS: THIAMINE 100 MG TAB PO SCH (10:50)
[2020-05-19] MEDS: amLODIPine 5 MG TAB PO SCH (10:50)
[2020-05-19] MEDS: HEPARIN 5,000 UNIT/1 ML VIAL SUB-Q SCH ×2 (10:58→21:17)
[2020-05-19] MEDS: MULTIVITAMINS ,THERAPEUTIC TAB PO SCH (10:58)
[2020-05-19] MEDS: LISINOPRIL 10 MG TAB PO SCH (10:58)
--- NOTE | 2020-05-19 11:55 | Progress Note ---
Assessment and Plan atient alert, awake resting on 2 litres O2. O2 saturation 91%. No complaint of chest pain, shortness of breath or cough at this time.No acute respiratory distress. patient afebrile. has no leukocytosis. Chest xray done 05/14/20 reported No acute findings. Patient has history of smoking 1 pack x 25 years. Stopped smoking 1 year ago. Drinks alcohol. Denies drug abuse. 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 BIPAP standby in the room. Patient he is admitted for swelling of body, legs and abdomen. Patients swelling some what better now. Patient presently on albuterol/atrovent aerosol treatments, PO Prednisone. levaquin, S/C Heparin and famotidine. - Patient Problems (1) COPD with exacerbation Current Visit: Yes Status: Acute Plan to address problem: O2 2 litres via nasal canula. Albuterol/atrovent aerosol treatments q 6 hours. PO Prednisone S/C Heparin. Famotidine. I/V Levaquin. (2) Anasarca Current Visit: Yes Status: Acute Plan to address problem: Patient is on lasix. Management as per primary care. (3) Dyspnea Current Visit: Yes Status: Acute Qualifiers: Dyspnea type: shortness of breath Qualified Code(s): R06.02 - Shortness of breath; R06.00 - Dyspnea, unspecified; R06.01 - Orthopnea Plan to address problem: O2 2 litres via nasal canula. Albuterol/atrovent aerosol treatments q 6 hours. PO Prednisone. S/C Heparin. Famotidine. I/V Levaquin I/V Lasix. PFTs as out patient. (4) Hypoalbuminemia Current Visit: Yes Status: Acute Plan to address problem: Management as per primary care. (5) Pulmonary hypertension Current Visit: Yes Status: Acute Plan to address problem: Optimize the treatment for COPD and Sleep apnea. (6) Morbid obesity with BMI of 40.0-44.9, adult Current Visit: Yes Status: Chronic Plan to address problem: Recommend to loose weight. Exercise and diet. Use CPAP as he is using at night. (7) HTN (hypertension) Current Visit: No Status: Chronic Plan to address problem: Management as per primary care. (8) Tobacco use Current Visit: No Status: Chronic Plan to address problem: Patient said he stopped smoking 1 year ago. Subjective Date of service: 05/19/20 Principal diagnosis: Abdominal pain, alcohol abuse, abdominal distention. Interval history: Patient alert, awake resting on 2 litres O2. O2 saturation 91%. No complaint of chest pain, shortness of breath or cough at this time.No acute respiratory distress. patient afebrile. has no leukocytosis. Chest xray done 05/14/20 reported No acute findings. Patient has history of smoking 1 pack x 25 years. Stopped smoking 1 year ago. Drinks alcohol. Denies drug abuse. 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 BIPAP standby in the room. Patient he is admitted for swelling of body, legs and abdomen. Patients swelling some what better now. Patient presently on albuterol/atrovent aerosol treatments, PO Prednisone. levaquin, S/C Heparin and famotidine. Objective Vital Signs - 12hr 05/19/20 05/19/20 05/19/20 00:38 01:46 03:29 Temperature 97.5 F L 97.3 F L Pulse Rate 92 H 92 H 96 H Pulse Rate [ Anterior Bilateral Throughout] Respiratory 20 19 20 Rate Respiratory Rate [Anterior Bilateral Throughout] Blood Pressure 162/90 167/89 O2 Sat by Pulse 100 100 99 Oximetry 05/19/20 05/19/20 05/19/20 07:33 08:15 08:42 Temperature 98.0 F Pulse Rate 90 Pulse Rate [ 95 H Anterior Bilateral Throughout] Respiratory 20 Rate Respiratory 20 Rate [Anterior Bilateral Throughout] Blood Pressure 141/79 O2 Sat by Pulse 100 99 Oximetry 05/19/20 05/19/20 10:50 10:58 Temperature Pulse Rate 94 H 92 H Pulse Rate [ Anterior Bilateral Throughout] Respiratory Rate Respiratory Rate [Anterior Bilateral Throughout] Blood Pressure 143/85 143/85 O2 Sat by Pulse Oximetry Constitutional: no acute distress, alert Eyes: non-icteric Neck: supple, no lymphadenopathy Effort: normal Ascultation: Bilateral: diminished breath sounds, other (Prolonged expiratory phase.) Cardiovascular: regular rate and rhythm Gastrointestinal: normoactive bowel sounds, soft, non-tender Integumentary: normal Extremities: edema Neurologic: normal mental status, non-focal exam, pupils equal and round, CN II- XII normal Psychiatric: mood appropriate CBC and BMP: 05/15/20 04:14 05/18/20 07:46 ABG, PT/INR, D-dimer: PT/INR, D-dimer PT 15.9 Sec. (12.2-14.9) H 05/14/20 15:26 INR 1.27 (0.87-1.13) H 05/14/20 15:26 Abnormal lab findings: Abnormal Labs 05/14/20 05/14/20 05/14/20 15:22 15:26 15:26 RBC 3.09 L Hgb 10.5 L Hct 31.9 L MCV 103 H MCH 34 H Lymph % (Auto) 8.1 L [place] % (Auto) 14.1 H Lymph # (Auto) 0.5 L [place] # (Auto) 0.9 H Seg Neutrophils % 76.7 H PT 15.9 H INR 1.27 H Sodium 130 L Potassium Chloride 88.8 L Carbon Dioxide BUN 6 L Creatinine Glucose 334 H POC Glucose Hemoglobin A1c Iron TIBC Transferrin Direct Bilirubin AST 50 H Alkaline Phosphatase 214 H Albumin 3.2 L Amylase Urine WBC (Auto) 05/15/20 05/15/20 05/15/20 02:22 04:14 04:14 RBC 3.10 L Hgb 10.6 L Hct 32.5 L MCV 105 H MCH 34 H Lymph % (Auto) 4.9 L [place] % (Auto) Lymph # (Auto) 0.3 L [place] # (Auto) Seg Neutrophils % 88.0 H PT INR Sodium 132 L Potassium Chloride 91.0 L Carbon Dioxide BUN 5 L Creatinine 0.6 L Glucose 236 H POC Glucose Hemoglobin A1c Iron TIBC Transferrin Direct Bilirubin AST 45 H Alkaline Phosphatase 203 H Albumin 3.3 L Amylase Urine WBC (Auto) 70.0 H 05/15/20 05/15/20 05/15/20 04:14 07:47 13:32 RBC Hgb Hct MCV MCH Lymph % (Auto) [place] % (Auto) Lymph # (Auto) [place] # (Auto) Seg Neutrophils % PT INR Sodium Potassium Chloride Carbon Dioxide BUN Creatinine Glucose POC Glucose 305 H Hemoglobin A1c 9.9 H Iron 36 L TIBC 191 L Transferrin 165 L Direct Bilirubin AST Alkaline Phosphatase Albumin Amylase Urine WBC (Auto) 05/15/20 05/15/20 05/16/20 17:34 22:06 04:26 RBC Hgb Hct MCV MCH Lymph % (Auto) [place] % (Auto) Lymph # (Auto) [place] # (Auto) Seg Neutrophils % PT INR Sodium 134 L Potassium 5.4 H D Chloride 91.6 L Carbon Dioxide 18 L BUN Creatinine Glucose 360 H POC Glucose 362 H Hemoglobin A1c Iron TIBC Transferrin Direct Bilirubin 0.5 H AST 55 H Alkaline Phosphatase 201 H Albumin 3.6 L Amylase 10 L Urine WBC (Auto) 05/16/20 05/16/20 05/16/20 08:12 12:27 16:29 RBC Hgb Hct MCV MCH Lymph % (Auto) [place] % (Auto) Lymph # (Auto) [place] # (Auto) Seg Neutrophils % PT INR Sodium Potassium Chloride Carbon Dioxide BUN Creatinine Glucose POC Glucose 385 H 335 H 294 H Hemoglobin A1c Iron TIBC Transferrin Direct Bilirubin AST Alkaline Phosphatase Albumin Amylase Urine WBC (Auto) 05/16/20 05/17/20 05/17/20 21:19 07:34 12:08 RBC Hgb Hct MCV MCH Lymph % (Auto) [place] % (Auto) Lymph # (Auto) [place] # (Auto) Seg Neutrophils % PT INR Sodium Potassium Chloride Carbon Dioxide BUN Creatinine Glucose POC Glucose 351 H 356 H 344 H Hemoglobin A1c Iron TIBC Transferrin Direct Bilirubin AST Alkaline Phosphatase Albumin Amylase Urine WBC (Auto) 05/17/20 05/17/20 05/18/20 16:37 21:17 07:26 RBC Hgb Hct MCV MCH Lymph % (Auto) [place] % (Auto) Lymph # (Auto) [place] # (Auto) Seg Neutrophils % PT INR Sodium Potassium Chloride Carbon Dioxide BUN Creatinine Glucose POC Glucose 371 H 357 H 347 H Hemoglobin A1c Iron TIBC Transferrin Direct Bilirubin AST Alkaline Phosphatase Albumin Amylase Urine WBC (Auto) 05/18/20 05/18/20 05/18/20 07:46 10:54 15:42 RBC Hgb Hct MCV MCH Lymph % (Auto) [place] % (Auto) Lymph # (Auto) [place] # (Auto) Seg Neutrophils % PT INR Sodium 136 L Potassium Chloride 92.0 L Carbon Dioxide 21 L BUN Creatinine Glucose 376 H POC Glucose 379 H 365 H Hemoglobin A1c Iron TIBC Transferrin Direct Bilirubin AST Alkaline Phosphatase Albumin Amylase Urine WBC (Auto) 05/18/20 05/19/20 05/19/20 21:14 07:47 11:12 RBC Hgb Hct MCV MCH Lymph % (Auto) [place] % (Auto) Lymph # (Auto) [place] # (Auto) Seg Neutrophils % PT INR Sodium Potassium Chloride Carbon Dioxide BUN Creatinine Glucose POC Glucose 337 H 330 H 397 H Hemoglobin A1c Iron TIBC Transferrin Direct Bilirubin AST Alkaline Phosphatase Albumin Amylase Urine WBC (Auto)
--- NOTE | 2020-05-19 20:57 | Gastroenterology Progress Note ---
Assessment and Plan GI: pt multiple medical problems, noted alcohol abuse now with abdominal swelling with ct scan raising possible cirrhosis and moderate ascites - labs show slight increase coags, nl platelets, slight decrease albumin, not strongly but may be consistent with cirrhos - LVP w/ 3.4L removed, study resukts pending - liver related serologies benign - diet as tolerated - from GI/liver standpoint most of evaluation and management can be done as outpt especially if get lvp today - will follow Subjective Date of service: 05/19/20 Principal diagnosis: Abdominal pain, alcohol abuse, abdominal distention. Interval history: reports abdominal pain improved especially after paracenthesis Objective - Constitutional Vitals: Temp Pulse Resp BP Pulse Ox 97.8 F 109 H 18 107/62 98 05/19/20 15:16 05/19/20 19:55 05/19/20 19:55 05/19/20 19:12 05/19/20 19:56 General appearance: no acute distress - EENT Eyes: PERRL - Respiratory Respiratory: bilateral: CTA - Cardiovascular Rhythm: regular Heart Sounds: Present: S1 & S2 - Gastrointestinal General gastrointestinal: Present: soft, non-tender, non-distended - Labs CBC & Chem 7: 05/15/20 04:14 05/18/20 07:46 Labs: Laboratory Results - last 24 hr 05/15/20 05/18/20 05/19/20 04:14 21:14 07:47 ABG pH POC ABG pCO2 POC ABG pO2 POC ABG HCO3 POC ABG Base Excess ABG Hemoglobin ABG Oxyhemoglobin ABG Methemoglobin ABG Sodium ABG Potassium ABG Chloride ABG Glucose Carboxyhemoglobin FiO2 POC Glucose 337 H 330 H RBC Folic Acid 784 Arterial Blood Glucose Arterial Blood Ionized Calcium 05/19/20 05/19/20 05/19/20 10:54 11:12 15:37 ABG pH 7.417 POC ABG pCO2 36.3 POC ABG pO2 84.1 POC ABG HCO3 22.9 POC ABG Base Excess -1.2 ABG Hemoglobin 13.1 ABG Oxyhemoglobin 94.1 ABG Methemoglobin 0.3 ABG Sodium 136.4 ABG Potassium 4.1 ABG Chloride 92.0 L ABG Glucose 442 H Carboxyhemoglobin 1.2 FiO2 21 POC Glucose 397 H 448 H RBC Folic Acid Arterial Blood Glucose 442 H Arterial Blood Ionized Calcium 4.9 05/19/20 17:21 ABG pH POC ABG pCO2 POC ABG pO2 POC ABG HCO3 POC ABG Base Excess ABG Hemoglobin ABG Oxyhemoglobin ABG Methemoglobin ABG Sodium ABG Potassium ABG Chloride ABG Glucose Carboxyhemoglobin FiO2 POC Glucose 329 H RBC Folic Acid Arterial Blood Glucose Arterial Blood Ionized Calcium
[2020-05-19] MEDS: PRAVASTATIN 20 MG TAB PO SCH (21:07)
[2020-05-19] MEDS: predniSONE 20 MG TAB PO SCH (22:37)
[2020-05-19] MEDS: FUROSEMIDE 40 MG TAB PO SCH (22:37)
[2020-05-20] MEDS: BENZONATATE 100 MG CAP PO SCH ×3 (05:50→21:42)
[2020-05-20] MEDS: FUROSEMIDE 40 MG TAB PO SCH ×2 (05:50→17:36)
[2020-05-20] MEDS: IPRATROPIUM/ALBUTEROL SULFATE 3 ML AMPUL.NEB IH SCH ×2 (09:03→21:35)
[2020-05-20] MEDS: ARFORMOTEROL 15 MCG/2 ML NEBU IH SCH ×2 (09:22→21:37)
[2020-05-20] MEDS: BUDESONIDE 0.5 MG/2 ML NEBU IH SCH ×2 (09:22→21:36)
[2020-05-20] MEDS: INSULIN NPH/REGULAR 70/30 INJ SUB-Q SCH ×2 (09:30→17:35)
[2020-05-20] MEDS: INSULIN LISPRO 100 UNIT/ML SUB-Q SCH ×4 (09:30→21:37)
[2020-05-20] MEDS: HEPARIN 5,000 UNIT/1 ML VIAL SUB-Q SCH ×2 (09:31→21:37)
[2020-05-20] MEDS: NICOTINE 21 MG/24 HR PATCH TD SCH (09:31)
[2020-05-20] MEDS: predniSONE 20 MG TAB PO SCH (09:31)
[2020-05-20] MEDS: amLODIPine 5 MG TAB PO SCH (09:31)
[2020-05-20] MEDS: THIAMINE 100 MG TAB PO SCH (09:31)
[2020-05-20] MEDS: MULTIVITAMINS ,THERAPEUTIC TAB PO SCH (09:31)
[2020-05-20] MEDS: ASPIRIN 325 MG TAB PO SCH (09:31)
[2020-05-20] MEDS: LISINOPRIL 10 MG TAB PO SCH (09:31)
[2020-05-20] MEDS: FOLIC ACID/VIT B COMP W-C 1 MG (RENAL CAPS) PO SCH (09:31)
[2020-05-20] MEDS: FAMOTIDINE 20 MG TAB PO SCH ×2 (09:31→21:42)
[2020-05-20] MEDS: FLUTICASONE PROPIONATE NASAL SPRAY 16 GM NS SCH (09:34)
--- NOTE | 2020-05-20 15:19 | Progress Note ---
Assessment and Plan atient alert, awake resting on room air. O2 saturation 98%. No complaint of chest pain, shortness of breath or cough at this time.No acute respiratory distress. patient afebrile. has no leukocytosis. Chest xray done 05/14/20 reported No acute findings. Patient has history of smoking 1 pack x 25 years. Stopped smoking 1 year ago. Drinks alcohol. Denies drug abuse. 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 BIPAP standby in the r oom. Patient he is admitted for swelling of body, legs and abdomen. Patients swelling some what better now. Patient presently on albuterol/atrovent aerosol treatments, PO Prednisone. levaquin, S/C Heparin and famotidine. - Patient Problems (1) COPD with exacerbation Current Visit: Yes Status: Acute Plan to address problem: O2 2 litres via nasal canula as needed for shortness of breath. Albuterol/atrovent aerosol treatments q 6 hours. PO Prednisone S/C Heparin. Famotidine. I/V Levaquin. (2) Anasarca Current Visit: Yes Status: Acute Plan to address problem: Patient is on lasix. Management as per primary care. (3) Dyspnea Current Visit: Yes Status: Acute Qualifiers: Dyspnea type: shortness of breath Qualified Code(s): R06.02 - Shortness of breath; R06.00 - Dyspnea, unspecified; R06.01 - Orthopnea Plan to address problem: O2 2 litres via nasal canula as needed for shortness of breath. Albuterol/atrovent aerosol treatments q 6 hours. PO Prednisone. S/C Heparin. Famotidine. I/V Levaquin I/V Lasix. PFTs as out patient. (4) Hypoalbuminemia Current Visit: Yes Status: Acute Plan to address problem: Management as per primary care. (5) Pulmonary hypertension Current Visit: Yes Status: Acute Plan to address problem: Optimize the treatment for COPD and Sleep apnea. (6) Morbid obesity with BMI of 40.0-44.9, adult Current Visit: Yes Status: Chronic Plan to address problem: Recommend to loose weight. Exercise and diet. Use CPAP as he is using at night. (7) HTN (hypertension) Current Visit: No Status: Chronic Plan to address problem: Management as per primary care. (8) Tobacco use Current Visit: No Status: Chronic Plan to address problem: Patient said he stopped smoking 1 year ago. Subjective Date of service: 05/20/20 Principal diagnosis: Abdominal pain, alcohol abuse, abdominal distention. Interval history: Patient alert, awake resting on room air. O2 saturation 98%. No complaint of chest pain, shortness of breath or cough at this time.No acute respiratory distress. patient afebrile. has no leukocytosis. Chest xray done 05/14/20 reported No acute findings. Patient has history of smoking 1 pack x 25 years. Stopped smoking 1 year ago. Drinks alcohol. Denies drug abuse. 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 BIPAP standby in the room. Patient he is admitted for swelling of body, legs and abdomen. Patients swelling some what better now. Patient presently on albuterol/atrovent aerosol treatments, PO Prednisone. levaquin, S/C Heparin and famotidine. Objective Vital Signs - 12hr 05/20/20 05/20/20 05/20/20 03:56 07:29 09:24 Temperature 98.4 F 97.5 F L Pulse Rate 88 97 H Pulse Rate [ 110 H Anterior Bilateral Throughout] Respiratory 18 16 Rate Respiratory 18 Rate [Anterior Bilateral Throughout] Blood Pressure 126/75 128/77 Blood Pressure [Right] O2 Sat by Pulse 96 97 Oximetry 05/20/20 05/20/20 12:00 12:03 Temperature 97.6 F Pulse Rate 90 90 Pulse Rate [ Anterior Bilateral Throughout] Respiratory 18 Rate Respiratory Rate [Anterior Bilateral Throughout] Blood Pressure Blood Pressure 132/73 [Right] O2 Sat by Pulse 96 Oximetry Constitutional: no acute distress, alert Eyes: non-icteric Neck: supple, no lymphadenopathy Effort: normal Ascultation: Bilateral: diminished breath sounds, other (Prolonged expiratory phase.) Cardiovascular: regular rate and rhythm Gastrointestinal: normoactive bowel sounds, soft, non-tender Integumentary: normal Extremities: edema Neurologic: normal mental status, non-focal exam, pupils equal and round, CN II- XII normal Psychiatric: mood appropriate CBC and BMP: 05/15/20 04:14 05/18/20 07:46 ABG, PT/INR, D-dimer: ABG ABG pH 7.417 (7.320-7.450) 05/19/20 10:54 POC ABG pCO2 36.3 mmHg (32.0-48.0) 05/19/20 10:54 POC ABG pO2 84.1 mmHg (83-108) 05/19/20 10:54 POC ABG HCO3 22.9 05/19/20 10:54 PT/INR, D-dimer PT 15.9 Sec. (12.2-14.9) H 05/14/20 15:26 INR 1.27 (0.87-1.13) H 05/14/20 15:26 Abnormal lab findings: Abnormal Labs 05/14/20 05/14/20 05/14/20 15:22 15:26 15:26 RBC 3.09 L Hgb 10.5 L Hct 31.9 L MCV 103 H MCH 34 H Lymph % (Auto) 8.1 L [place] % (Auto) 14.1 H Lymph # (Auto) 0.5 L [place] # (Auto) 0.9 H Seg Neutrophils % 76.7 H PT 15.9 H INR 1.27 H ABG Chloride ABG Glucose Sodium 130 L Potassium Chloride 88.8 L Carbon Dioxide BUN 6 L Creatinine Glucose 334 H POC Glucose Hemoglobin A1c Iron TIBC Transferrin Direct Bilirubin AST 50 H Alkaline Phosphatase 214 H Albumin 3.2 L Amylase Arterial Blood Glucose Urine WBC (Auto) 05/15/20 05/15/20 05/15/20 02:22 04:14 04:14 RBC 3.10 L Hgb 10.6 L Hct 32.5 L MCV 105 H MCH 34 H Lymph % (Auto) 4.9 L [place] % (Auto) Lymph # (Auto) 0.3 L [place] # (Auto) Seg Neutrophils % 88.0 H PT INR ABG Chloride ABG Glucose Sodium 132 L Potassium Chloride 91.0 L Carbon Dioxide BUN 5 L Creatinine 0.6 L Glucose 236 H POC Glucose Hemoglobin A1c Iron TIBC Transferrin Direct Bilirubin AST 45 H Alkaline Phosphatase 203 H Albumin 3.3 L Amylase Arterial Blood Glucose Urine WBC (Auto) 70.0 H 05/15/20 05/15/20 05/15/20 04:14 07:47 13:32 RBC Hgb Hct MCV MCH Lymph % (Auto) [place] % (Auto) Lymph # (Auto) [place] # (Auto) Seg Neutrophils % PT INR ABG Chloride ABG Glucose Sodium Potassium Chloride Carbon Dioxide BUN Creatinine Glucose POC Glucose 305 H Hemoglobin A1c 9.9 H Iron 36 L TIBC 191 L Transferrin 165 L Direct Bilirubin AST Alkaline Phosphatase Albumin Amylase Arterial Blood Glucose Urine WBC (Auto) 05/15/20 05/15/20 05/16/20 17:34 22:06 04:26 RBC Hgb Hct MCV MCH Lymph % (Auto) [place] % (Auto) Lymph # (Auto) [place] # (Auto) Seg Neutrophils % PT INR ABG Chloride ABG Glucose Sodium 134 L Potassium 5.4 H D Chloride 91.6 L Carbon Dioxide 18 L BUN Creatinine Glucose 360 H POC Glucose 362 H Hemoglobin A1c Iron TIBC Transferrin Direct Bilirubin 0.5 H AST 55 H Alkaline Phosphatase 201 H Albumin 3.6 L Amylase 10 L Arterial Blood Glucose Urine WBC (Auto) 05/16/20 05/16/20 05/16/20 08:12 12:27 16:29 RBC Hgb Hct MCV MCH Lymph % (Auto) [place] % (Auto) Lymph # (Auto) [place] # (Auto) Seg Neutrophils % PT INR ABG Chloride ABG Glucose Sodium Potassium Chloride Carbon Dioxide BUN Creatinine Glucose POC Glucose 385 H 335 H 294 H Hemoglobin A1c Iron TIBC Transferrin Direct Bilirubin AST Alkaline Phosphatase Albumin Amylase Arterial Blood Glucose Urine WBC (Auto) 05/16/20 05/17/20 05/17/20 21:19 07:34 12:08 RBC Hgb Hct MCV MCH Lymph % (Auto) [place] % (Auto) Lymph # (Auto) [place] # (Auto) Seg Neutrophils % PT INR ABG Chloride ABG Glucose Sodium Potassium Chloride Carbon Dioxide BUN Creatinine Glucose POC Glucose 351 H 356 H 344 H Hemoglobin A1c Iron TIBC Transferrin Direct Bilirubin AST Alkaline Phosphatase Albumin Amylase Arterial Blood Glucose Urine WBC (Auto) 05/17/20 05/17/20 05/18/20 16:37 21:17 07:26 RBC Hgb Hct MCV MCH Lymph % (Auto) [place] % (Auto) Lymph # (Auto) [place] # (Auto) Seg Neutrophils % PT INR ABG Chloride ABG Glucose Sodium Potassium Chloride Carbon Dioxide BUN Creatinine Glucose POC Glucose 371 H 357 H 347 H Hemoglobin A1c Iron TIBC Transferrin Direct Bilirubin AST Alkaline Phosphatase Albumin Amylase Arterial Blood Glucose Urine WBC (Auto) 05/18/20 05/18/20 05/18/20 07:46 10:54 15:42 RBC Hgb Hct MCV MCH Lymph % (Auto) [place] % (Auto) Lymph # (Auto) [place] # (Auto) Seg Neutrophils % PT INR ABG Chloride ABG Glucose Sodium 136 L Potassium Chloride 92.0 L Carbon Dioxide 21 L BUN Creatinine Glucose 376 H POC Glucose 379 H 365 H Hemoglobin A1c Iron TIBC Transferrin Direct Bilirubin AST Alkaline Phosphatase Albumin Amylase Arterial Blood Glucose Urine WBC (Auto) 05/18/20 05/19/20 05/19/20 21:14 07:47 10:54 RBC Hgb Hct MCV MCH Lymph % (Auto) [place] % (Auto) Lymph # (Auto) [place] # (Auto) Seg Neutrophils % PT INR ABG Chloride 92.0 L ABG Glucose 442 H Sodium Potassium Chloride Carbon Dioxide BUN Creatinine Glucose POC Glucose 337 H 330 H Hemoglobin A1c Iron TIBC Transferrin Direct Bilirubin AST Alkaline Phosphatase Albumin Amylase Arterial Blood Glucose 442 H Urine WBC (Auto) 05/19/20 05/19/20 05/19/20 11:12 15:37 17:21 RBC Hgb Hct MCV MCH Lymph % (Auto) [place] % (Auto) Lymph # (Auto) [place] # (Auto) Seg Neutrophils % PT INR ABG Chloride ABG Glucose Sodium Potassium Chloride Carbon Dioxide BUN Creatinine Glucose POC Glucose 397 H 448 H 329 H Hemoglobin A1c Iron TIBC Transferrin Direct Bilirubin AST Alkaline Phosphatase Albumin Amylase Arterial Blood Glucose Urine WBC (Auto) 05/19/20 05/20/20 05/20/20 21:06 08:07 11:39 RBC Hgb Hct MCV MCH Lymph % (Auto) [place] % (Auto) Lymph # (Auto) [place] # (Auto) Seg Neutrophils % PT INR ABG Chloride ABG Glucose Sodium Potassium Chloride Carbon Dioxide BUN Creatinine Glucose POC Glucose 179 H 339 H 361 H Hemoglobin A1c Iron TIBC Transferrin Direct Bilirubin AST Alkaline Phosphatase Albumin Amylase Arterial Blood Glucose Urine WBC (Auto) 05/20/20 13:07 RBC Hgb Hct MCV MCH Lymph % (Auto) [place] % (Auto) Lymph # (Auto) [place] # (Auto) Seg Neutrophils % PT INR ABG Chloride ABG Glucose Sodium Potassium Chloride Carbon Dioxide BUN Creatinine Glucose POC Glucose 459 H Hemoglobin A1c Iron TIBC Transferrin Direct Bilirubin AST Alkaline Phosphatase Albumin Amylase Arterial Blood Glucose Urine WBC (Auto)
--- NOTE | 2020-05-20 17:23 | Gastroenterology Progress Note ---
Assessment and Plan GI: pt multiple medical problems, noted alcohol abuse now with abdominal swelling with ct scan raising possible cirrhosis and moderate ascites - labs show slight increase coags, nl platelets, slight decrease albumin, not strongly but may be consistent with cirrhos - LVP w/ 3.4L removed, study results pending - liver related serologies benign - diet as tolerated - from GI/liver standpoint most of evaluation and management can be done as outpt especially if get lvp today - will follow Subjective Date of service: 05/20/20 Principal diagnosis: Abdominal pain, alcohol abuse, abdominal distention. Interval history: - reports feeling better, wants to go home when BS stable Objective - Constitutional Vitals: Temp Pulse Resp BP Pulse Ox 97.6 F 90 18 132/73 96 05/20/20 12:03 05/20/20 12:03 05/20/20 12:03 05/20/20 12:03 05/20/20 12:03 General appearance: no acute distress - EENT Eyes: PERRL - Respiratory Respiratory: bilateral: CTA - Cardiovascular Rhythm: regular Heart Sounds: Present: S1 & S2 - Gastrointestinal General gastrointestinal: Present: soft, non-tender, non-distended - Labs CBC & Chem 7: 05/15/20 04:14 05/18/20 07:46 Labs: Laboratory Results - last 24 hr 05/19/20 05/19/20 05/19/20 15:37 17:21 21:06 POC Glucose 448 H 329 H 179 H 05/20/20 05/20/20 05/20/20 08:07 11:39 13:07 POC Glucose 339 H 361 H 459 H 05/20/20 15:02 POC Glucose 432 H
[2020-05-20] MEDS: metFORMIN 850 MG TAB PO SCH (17:40)
[2020-05-20] MEDS: PRAVASTATIN 20 MG TAB PO SCH (21:42)
[2020-05-21] MEDS: FUROSEMIDE 40 MG TAB PO SCH ×2 (06:43→17:51)
[2020-05-21] MEDS: BENZONATATE 100 MG CAP PO SCH ×3 (06:43→21:32)
[2020-05-21] MEDS ORDERED: metFORMIN 850 MG TAB PO SCH (08:00)
[2020-05-21] MEDS: ARFORMOTEROL 15 MCG/2 ML NEBU IH SCH ×2 (08:15→21:19)
[2020-05-21] MEDS: IPRATROPIUM/ALBUTEROL SULFATE 3 ML AMPUL.NEB IH SCH ×2 (08:15→21:18)
[2020-05-21] MEDS: BUDESONIDE 0.5 MG/2 ML NEBU IH SCH ×2 (08:15→21:18)
[2020-05-21] MEDS: INSULIN LISPRO 100 UNIT/ML SUB-Q SCH ×4 (08:25→21:31)
[2020-05-21] MEDS: metFORMIN 850 MG TAB PO SCH ×2 (08:26→17:03)
[2020-05-21] MEDS: INSULIN NPH/REGULAR 70/30 INJ SUB-Q SCH ×2 (08:27→17:02)
[2020-05-21] MEDS: FLUTICASONE PROPIONATE NASAL SPRAY 16 GM NS SCH (09:53)
[2020-05-21] MEDS: FOLIC ACID/VIT B COMP W-C 1 MG (RENAL CAPS) PO SCH (09:54)
[2020-05-21] MEDS: ASPIRIN 325 MG TAB PO SCH (09:54)
[2020-05-21] MEDS: THIAMINE 100 MG TAB PO SCH (09:54)
[2020-05-21] MEDS: predniSONE 20 MG TAB PO SCH (09:55)
[2020-05-21] MEDS: HEPARIN 5,000 UNIT/1 ML VIAL SUB-Q SCH ×2 (09:55→21:31)
[2020-05-21] MEDS: LISINOPRIL 10 MG TAB PO SCH (09:55)
[2020-05-21] MEDS: amLODIPine 5 MG TAB PO SCH (09:55)
[2020-05-21] MEDS: FAMOTIDINE 20 MG TAB PO SCH ×2 (09:55→21:32)
[2020-05-21] MEDS: NICOTINE 21 MG/24 HR PATCH TD SCH (09:56)
[2020-05-21] MEDS: MULTIVITAMINS ,THERAPEUTIC TAB PO SCH (09:58)
[2020-05-21] MEDS ORDERED: INSULIN NPH/REGULAR 70/30 INJ SUB-Q SCH ×2 (10:00→17:00)
--- NOTE | 2020-05-21 13:58 | Progress Note ---
Assessment and Plan Abdominal pain, unspecified. Acute exacerbation of chronic obstructive pulmonary disease. Possible heart failure. Morbid obesity. Obstructive sleep apnea. Pulmonary hypertension. Anemia that is microcytic - continue to wean supplemental oxygen to keep O2 sats > 90% - continue bronchodilators (JENNY & LABA) with pulm hygiene per RT - continue systemic steroids with slow taper - continue inhaled corticosteroids - continue NIV scheduled qhs re: ANGELIA - avoid nephrotoxins, renally dose all medications - continue mobility protocols to prevent pressure ulcers - PT/OT as tolerated - Wound care per RN/WCT - accuchecks with glycemic control per SSI for target blood glucose < 180 mg/dL - Smoking abstinence strongly counseled at the bedside - home oxygen evaluation at discharge - GI & VTE prophylaxis - Flu & pneumovax per protocol - Pulmonary out patient follow up for PFTs and optimization of respiratory status - continue other care per attending / other consultants - prn analgesia per pain score ... re-evaluate in am & prn Subjective Date of service: 05/21/20 Principal diagnosis: Abdominal pain, alcohol abuse, abdominal distention. Interval history: Patient is seen today for: Abdominal pain, unspecified; AE-COPD; Possible heart failure; Morbid obesity; ANGELIA; Pulmonary HTN (Mild) Seen and examined at bedside; 24hour events reviewed; nursing and respiratory care staff consulted; no adverse overnight events reported to me; resting peacefully in bed; Objective Vital Signs - 12hr 05/21/20 05/21/20 05/21/20 04:02 07:18 08:15 Temperature 98.0 F 97.4 F L Pulse Rate 102 H 96 H Pulse Rate [ 107 H Anterior Bilateral Throughout] Respiratory 20 18 Rate Respiratory 18 Rate [Anterior Bilateral Throughout] Blood Pressure 115/63 136/73 O2 Sat by Pulse 96 95 Oximetry 05/21/20 05/21/20 09:55 10:00 Temperature Pulse Rate 96 H Pulse Rate [ Anterior Bilateral Throughout] Respiratory Rate Respiratory Rate [Anterior Bilateral Throughout] Blood Pressure 136/73 O2 Sat by Pulse 97 Oximetry Constitutional: no acute distress, alert, other (middle aged obese male with mildly increased respiratopry effort at rest) Eyes: non-icteric ENT: oropharynx moist Neck: supple, no lymphadenopathy, no JVD Effort: mildly labored Ascultation: Bilateral: diminished breath sounds, rhonchi (scant), other (Prolonged expiratory phase.) Percussion: Bilateral: not dull Cardiovascular: regular rate and rhythm Gastrointestinal: normoactive bowel sounds, soft, non-tender, non-distended (protuberant) Integumentary: normal Extremities: no cyanosis, pink and warm, pulses normal, edema (trace) Neurologic: normal mental status, non-focal exam, pupils equal and round, motor strength normal and Psychiatric: mood appropriate, affect normal CBC and BMP: 05/15/20 04:14 05/18/20 07:46 ABG, PT/INR, D-dimer: ABG ABG pH 7.417 (7.320-7.450) 05/19/20 10:54 POC ABG pCO2 36.3 mmHg (32.0-48.0) 05/19/20 10:54 POC ABG pO2 84.1 mmHg (83-108) 05/19/20 10:54 POC ABG HCO3 22.9 05/19/20 10:54 PT/INR, D-dimer PT 15.9 Sec. (12.2-14.9) H 05/14/20 15:26 INR 1.27 (0.87-1.13) H 05/14/20 15:26 Abnormal lab findings: Abnormal Labs 05/14/20 05/14/20 05/14/20 15:22 15:26 15:26 RBC 3.09 L Hgb 10.5 L Hct 31.9 L MCV 103 H MCH 34 H Lymph % (Auto) 8.1 L [place] % (Auto) 14.1 H Lymph # (Auto) 0.5 L [place] # (Auto) 0.9 H Seg Neutrophils % 76.7 H PT 15.9 H INR 1.27 H ABG Chloride ABG Glucose Sodium 130 L Potassium Chloride 88.8 L Carbon Dioxide BUN 6 L Creatinine Glucose 334 H POC Glucose Hemoglobin A1c Iron TIBC Transferrin Direct Bilirubin AST 50 H Alkaline Phosphatase 214 H Albumin 3.2 L Amylase Arterial Blood Glucose Urine WBC (Auto) 05/15/20 05/15/20 05/15/20 02:22 04:14 04:14 RBC 3.10 L Hgb 10.6 L Hct 32.5 L MCV 105 H MCH 34 H Lymph % (Auto) 4.9 L [place] % (Auto) Lymph # (Auto) 0.3 L [place] # (Auto) Seg Neutrophils % 88.0 H PT INR ABG Chloride ABG Glucose Sodium 132 L Potassium Chloride 91.0 L Carbon Dioxide BUN 5 L Creatinine 0.6 L Glucose 236 H POC Glucose Hemoglobin A1c Iron TIBC Transferrin Direct Bilirubin AST 45 H Alkaline Phosphatase 203 H Albumin 3.3 L Amylase Arterial Blood Glucose Urine WBC (Auto) 70.0 H 05/15/20 05/15/20 05/15/20 04:14 07:47 13:32 RBC Hgb Hct MCV MCH Lymph % (Auto) [place] % (Auto) Lymph # (Auto) [place] # (Auto) Seg Neutrophils % PT INR ABG Chloride ABG Glucose Sodium Potassium Chloride Carbon Dioxide BUN Creatinine Glucose POC Glucose 305 H Hemoglobin A1c 9.9 H Iron 36 L TIBC 191 L Transferrin 165 L Direct Bilirubin AST Alkaline Phosphatase Albumin Amylase Arterial Blood Glucose Urine WBC (Auto) 05/15/20 05/15/20 05/16/20 17:34 22:06 04:26 RBC Hgb Hct MCV MCH Lymph % (Auto) [place] % (Auto) Lymph # (Auto) [place] # (Auto) Seg Neutrophils % PT INR ABG Chloride ABG Glucose Sodium 134 L Potassium 5.4 H D Chloride 91.6 L Carbon Dioxide 18 L BUN Creatinine Glucose 360 H POC Glucose 362 H Hemoglobin A1c Iron TIBC Transferrin Direct Bilirubin 0.5 H AST 55 H Alkaline Phosphatase 201 H Albumin 3.6 L Amylase 10 L Arterial Blood Glucose Urine WBC (Auto) 05/16/20 05/16/20 05/16/20 08:12 12:27 16:29 RBC Hgb Hct MCV MCH Lymph % (Auto) [place] % (Auto) Lymph # (Auto) [place] # (Auto) Seg Neutrophils % PT INR ABG Chloride ABG Glucose Sodium Potassium Chloride Carbon Dioxide BUN Creatinine Glucose POC Glucose 385 H 335 H 294 H Hemoglobin A1c Iron TIBC Transferrin Direct Bilirubin AST Alkaline Phosphatase Albumin Amylase Arterial Blood Glucose Urine WBC (Auto) 05/16/20 05/17/20 05/17/20 21:19 07:34 12:08 RBC Hgb Hct MCV MCH Lymph % (Auto) [place] % (Auto) Lymph # (Auto) [place] # (Auto) Seg Neutrophils % PT INR ABG Chloride ABG Glucose Sodium Potassium Chloride Carbon Dioxide BUN Creatinine Glucose POC Glucose 351 H 356 H 344 H Hemoglobin A1c Iron TIBC Transferrin Direct Bilirubin AST Alkaline Phosphatase Albumin Amylase Arterial Blood Glucose Urine WBC (Auto) 05/17/20 05/17/20 05/18/20 16:37 21:17 07:26 RBC Hgb Hct MCV MCH Lymph % (Auto) [place] % (Auto) Lymph # (Auto) [place] # (Auto) Seg Neutrophils % PT INR ABG Chloride ABG Glucose Sodium Potassium Chloride Carbon Dioxide BUN Creatinine Glucose POC Glucose 371 H 357 H 347 H Hemoglobin A1c Iron TIBC Transferrin Direct Bilirubin AST Alkaline Phosphatase Albumin Amylase Arterial Blood Glucose Urine WBC (Auto) 05/18/20 05/18/20 05/18/20 07:46 10:54 15:42 RBC Hgb Hct MCV MCH Lymph % (Auto) [place] % (Auto) Lymph # (Auto) [place] # (Auto) Seg Neutrophils % PT INR ABG Chloride ABG Glucose Sodium 136 L Potassium Chloride 92.0 L Carbon Dioxide 21 L BUN Creatinine Glucose 376 H POC Glucose 379 H 365 H Hemoglobin A1c Iron TIBC Transferrin Direct Bilirubin AST Alkaline Phosphatase Albumin Amylase Arterial Blood Glucose Urine WBC (Auto) 05/18/20 05/19/20 05/19/20 21:14 07:47 10:54 RBC Hgb Hct MCV MCH Lymph % (Auto) [place] % (Auto) Lymph # (Auto) [place] # (Auto) Seg Neutrophils % PT INR ABG Chloride 92.0 L ABG Glucose 442 H Sodium Potassium Chloride Carbon Dioxide BUN Creatinine Glucose POC Glucose 337 H 330 H Hemoglobin A1c Iron TIBC Transferrin Direct Bilirubin AST Alkaline Phosphatase Albumin Amylase Arterial Blood Glucose 442 H Urine WBC (Auto) 05/19/20 05/19/20 05/19/20 11:12 15:37 17:21 RBC Hgb Hct MCV MCH Lymph % (Auto) [place] % (Auto) Lymph # (Auto) [place] # (Auto) Seg Neutrophils % PT INR ABG Chloride ABG Glucose Sodium Potassium Chloride Carbon Dioxide BUN Creatinine Glucose POC Glucose 397 H 448 H 329 H Hemoglobin A1c Iron TIBC Transferrin Direct Bilirubin AST Alkaline Phosphatase Albumin Amylase Arterial Blood Glucose Urine WBC (Auto) 05/19/20 05/20/20 05/20/20 21:06 08:07 11:39 RBC Hgb Hct MCV MCH Lymph % (Auto) [place] % (Auto) Lymph # (Auto) [place] # (Auto) Seg Neutrophils % PT INR ABG Chloride ABG Glucose Sodium Potassium Chloride Carbon Dioxide BUN Creatinine Glucose POC Glucose 179 H 339 H 361 H Hemoglobin A1c Iron TIBC Transferrin Direct Bilirubin AST Alkaline Phosphatase Albumin Amylase Arterial Blood Glucose Urine WBC (Auto) 03/06/0705/20/20 05/20/20 13:07 15:02 21:06 RBC Hgb Hct MCV MCH Lymph % (Auto) [place] % (Auto) Lymph # (Auto) [place] # (Auto) Seg Neutrophils % PT INR ABG Chloride ABG Glucose Sodium Potassium Chloride Carbon Dioxide BUN Creatinine Glucose POC Glucose 459 H 432 H 224 H Hemoglobin A1c Iron TIBC Transferrin Direct Bilirubin AST Alkaline Phosphatase Albumin Amylase Arterial Blood Glucose Urine WBC (Auto) 05/21/20 05/21/20 07:16 11:43 RBC Hgb Hct MCV MCH Lymph % (Auto) [place] % (Auto) Lymph # (Auto) [place] # (Auto) Seg Neutrophils % PT INR ABG Chloride ABG Glucose Sodium Potassium Chloride Carbon Dioxide BUN Creatinine Glucose POC Glucose 316 H 420 H Hemoglobin A1c Iron TIBC Transferrin Direct Bilirubin AST Alkaline Phosphatase Albumin Amylase Arterial Blood Glucose Urine WBC (Auto)
--- NOTE | 2020-05-21 14:17 | Event Note ---
Date: 05/21/20 Patient seen and examined, vitals stable Discharge was hold yesterday because blood glucose was elevated at 400s Adjusted NPH dose today, plan to DC home if blood glucose around 250
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
[2020-05-21] MEDS ORDERED: SODIUM CHLORIDE 0.9% 500 ML 500 ML IV ONE (15:47)
--- NOTE | 2020-05-21 16:35 | Gastroenterology Progress Note ---
Assessment and Plan GI: pt multiple medical problems, noted alcohol abuse now with abdominal swelling with ct scan raising possible cirrhosis and moderate ascites - labs show slight increase coags, nl platelets, slight decrease albumin, not strongly but may be consistent with cirrhos - LVP w/ 3.4L removed, study results pending - liver related serologies benign - diet as tolerated - from GI/liver standpoint most of evaluation and management can be done as outpt especially if get lvp today - will signs off, call if needed Subjective Date of service: 05/21/20 Principal diagnosis: Abdominal pain, alcohol abuse, abdominal distention. Interval history: - no new GI complaints Objective - Constitutional Vitals: Temp Pulse Resp BP Pulse Ox 97.4 F L 96 H 18 136/73 97 05/21/20 07:18 05/21/20 09:55 05/21/20 08:15 05/21/20 09:55 05/21/20 10:00 General appearance: no acute distress - EENT Eyes: PERRL - Respiratory Respiratory: bilateral: CTA - Cardiovascular Rhythm: regular Heart Sounds: Present: S1 & S2 - Gastrointestinal General gastrointestinal: Present: soft, non-tender, non-distended - Labs CBC & Chem 7: 05/15/20 04:14 05/18/20 07:46 Labs: Laboratory Results - last 24 hr 05/20/20 05/21/20 05/21/20 21:06 07:16 11:43 POC Glucose 224 H 316 H 420 H
[2020-05-21] MEDS ORDERED: INSULIN LISPRO 100 UNIT/ML SUB-Q ONE (16:56)
[2020-05-21] MEDS: PRAVASTATIN 20 MG TAB PO SCH (21:32)
[2020-05-22] MEDS: BENZONATATE 100 MG CAP PO SCH (06:23)
[2020-05-22] MEDS: FUROSEMIDE 40 MG TAB PO SCH (06:23)
[2020-05-22] MEDS: ARFORMOTEROL 15 MCG/2 ML NEBU IH SCH (07:46)
[2020-05-22] MEDS: IPRATROPIUM/ALBUTEROL SULFATE 3 ML AMPUL.NEB IH SCH (07:46)
[2020-05-22] MEDS: BUDESONIDE 0.5 MG/2 ML NEBU IH SCH (07:46)
[2020-05-22 08:03] VITALS: BP 157/86
[2020-05-22] MEDS: INSULIN LISPRO 100 UNIT/ML SUB-Q SCH (09:14)
[2020-05-22] MEDS: ASPIRIN 325 MG TAB PO SCH (09:15)
[2020-05-22] MEDS: amLODIPine 5 MG TAB PO SCH (09:15)
[2020-05-22] MEDS: LISINOPRIL 10 MG TAB PO SCH (09:15)
[2020-05-22] MEDS: HEPARIN 5,000 UNIT/1 ML VIAL SUB-Q SCH (09:16)
[2020-05-22] MEDS: MULTIVITAMINS ,THERAPEUTIC TAB PO SCH (09:16)
[2020-05-22] MEDS: FOLIC ACID/VIT B COMP W-C 1 MG (RENAL CAPS) PO SCH (09:16)
[2020-05-22] MEDS: metFORMIN 850 MG TAB PO SCH (09:16)
[2020-05-22] MEDS: FAMOTIDINE 20 MG TAB PO SCH (09:16)
[2020-05-22] MEDS: THIAMINE 100 MG TAB PO SCH (09:16)
[2020-05-22] MEDS: NICOTINE 21 MG/24 HR PATCH TD SCH (09:17)
[2020-05-22] MEDS: FLUTICASONE PROPIONATE NASAL SPRAY 16 GM NS SCH (09:25)
--- NOTE | 2020-05-22 09:34 | Event Note ---
Date: 05/22/20 Patient was planned for discharge yesterday but blood glucose remain elevated, adjusted insulin dose and finally came down below 300 before bedtime. Patient plan to go home today Further insulin adjustment will be done as an outpatient Patient was thoroughly counseled for dietary restriction and compliance he verbalized understanding Home health has been set up Further follow-up will be done at the [facility]
[2020-05-22] MEDS: INSULIN NPH/REGULAR 70/30 INJ SUB-Q SCH (09:52)
[2020-05-25 09:16] LABS: Amylase,Body Fluid < 10; LDH,Body Fluid 182; Triglycerides,Body Fluid 53
== END 2020-05-22 11:55 | disposition home or self-care (01) | DRG 433 ==
LOC: ED 14:51 → 4A 17:51 → OBSVTOIN 05-15 14:43
PROVIDERS: ADMIT Internal Medicine; ATTEND Internal Medicine
PROC: 5A09357 Assistance with Respiratory Ventilation, Less than 24 Consecutive Hours, Continuous Positive Airway Pressure (ICD-10-PCS; 2020-05-15)
PROC: 5A09357 Assistance with Respiratory Ventilation, Less than 24 Consecutive Hours, Continuous Positive Airway Pressure (ICD-10-PCS; 2020-05-16)
PROC: 5A09357 Assistance with Respiratory Ventilation, Less than 24 Consecutive Hours, Continuous Positive Airway Pressure (ICD-10-PCS; 2020-05-17)
PROC: 0W9G30Z Drainage of Peritoneal Cavity with Drainage Device, Percutaneous Approach (ICD-10-PCS; 2020-05-18)
PROC: 4A033R1 Measurement of Arterial Saturation, Peripheral, Percutaneous Approach (ICD-10-PCS; principal; 2020-05-19)
PROC: 5A09357 Assistance with Respiratory Ventilation, Less than 24 Consecutive Hours, Continuous Positive Airway Pressure (ICD-10-PCS; 2020-05-19)
DX: K74.60 Unspecified cirrhosis of liver (principal); J44.1 Chronic obstructive pulmonary disease with (acute) exacerbation; N39.0 Urinary tract infection, site not specified; K92.1 Melena; E87.1 Hypo-osmolality and hyponatremia; Z68.41 Body mass index [BMI] 40.0-44.9, adult; I50.32 Chronic diastolic (congestive) heart failure; R18.8 Other ascites; E88.09 Other disorders of plasma-protein metabolism, not elsewhere classified; E66.01 Morbid (severe) obesity due to excess calories; I11.0 Hypertensive heart disease with heart failure; I25.10 Atherosclerotic heart disease of native coronary artery without angina pectoris; Z91.041 Radiographic dye allergy status; Z87.891 Personal history of nicotine dependence; I27.20 Pulmonary hypertension, unspecified; F10.10 Alcohol abuse, uncomplicated; E87.8 Other disorders of electrolyte and fluid balance, not elsewhere classified; E11.9 Type 2 diabetes mellitus without complications; G47.33 Obstructive sleep apnea (adult) (pediatric); D50.9 Iron deficiency anemia, unspecified; J20.9 Acute bronchitis, unspecified
CPT/HCPCS: 36415; 36600; 49083; 71045; 74176; 80048; 80053; 80076; 81001; 82040; 82140; 82150; 82607; 82747; 82805; 82962; 83036; 83550; 83605; 83690; 83735; 83880; 84100; 84145; 84443; 84478; 84484; 85025; 85610; 85730; 87086; 88112; 88305; 89051; 93005; 93306; 93970; 94640; 94660; 94760; 96365; 96366; 96375; G0378; A9270-GY; J0696; J1644; J1815; J1940; J1956; J2270; J2920; J7040; J7512

== ENCOUNTER 2020-06-07 20:46 | Observation (INO) | payer OTHER ==
[2020-06-07] MEDS ORDERED: ONDANSETRON 4 MG/2 ML INJ IV ONE (21:18)
[2020-06-07] MEDS ORDERED: fentaNYL 100 MCG/2 ML INJ IV ONE (21:18)
[2020-06-07] MEDS ORDERED: ASPIRIN 325 MG TAB PO ONE (21:19)
--- NOTE | 2020-06-07 21:24 | Emergency Department Report ---
HPI - General Chief Complaint: Dyspnea/Respdistress Time Seen by Provider: 06/07/20 21:06 - HPI HPI: Room 21 The patient is a 45-year-old male present with a chief complaint of lower extremity edema and shortness of breath. Patient states since his discharge from this hospital in the beginning of this month is gradually had return of swelling to the bilateral lower extremities and abdomen. Patient states they were sent severely over the past 2 days. The patient states over the past 2 days he has had worsening dyspnea on exertion and shortness of breath. Patient states he is also had intermittent substernal chest pain is been sharp in nature associated with nausea/vomiting and diaphoresis. Patient admits to a cough occasionally productive of clear to green sputum for the past week. Patient states he is uncertain if he has had a fever. Patient states he has been compliant with his Lasix. The patient states he sleeps on 2 pillows and this has not changed recently. Patient currently gives his chest pain score 7-8/10. Patient states he believes his last cardiac catheterization occurred in 2017 and it did show a blockage but it was not "big enough" for stenting. ED Past Medical Hx - Past Medical History Previous Medical History?: Yes Hx Hypertension: Yes Hx Congestive Heart Failure: Yes Hx Diabetes: Yes Hx COPD: Yes (No home O2) Additional medical history: Pulmonary hypertension - Surgical History Past Surgical History?: No Additional Surgical History: Cyst removed from eye - Family History Family history: no significant - Social History Smoking Status: Former Smoker (None x1 year) Substance Use Type: None (Denies illicit drug use), Alcohol (No alcohol x3 weeks) - Medications Home Medications: Home Medications Medication Instructions Recorded Confirmed Last Taken Type ALBUTEROL Inhaler(NF) [VENTOLIN 2 puff IH QID PRN #1 inha 04/25/18 05/16/20 Unknown Rx Inhaler(NF)] Albuterol Sulfate [Proair 90 mcg IH Q4HR PRN #2 aer.pow.ba 05/19/20 Unknown Rx Respiclick] Aspirin 325 mg PO QDAY #30 tablet 05/19/20 Unknown Rx Famotidine [Pepcid] 20 mg PO BID #60 tablet 05/19/20 Unknown Rx Fluticasone [Flonase] 1 spray NS QDAY #1 bottle 05/19/20 Unknown Rx Folic Acid/Vit B Comp W-C [Renal 1 cap PO QDAY #30 capsule 05/19/20 Unknown Rx Caps] Ipratropium (Nf) [Atrovent HFA 2 puff IH Q6HR PRN #1 inha 05/19/20 Unknown Rx 17MCG/PUFF] Multivitamin Tab [Multiple Vitamin 1 each PO QDAY #30 tablet 05/19/20 Unknown Rx TAB (Theragran)] Nicotine [Habitrol] 21 mg TD QDAY #30 patch 05/19/20 Unknown Rx Pravastatin Sodium [Pravastatin] 10 mg PO QHS #30 tablet 05/19/20 Unknown Rx Thiamine [Vitamin B-1] 100 mg PO QDAY #30 tablet 05/19/20 Unknown Rx amLODIPine 5 mg PO QDAY #30 tablet 05/19/20 Unknown Rx levoFLOXacin [Levaquin] 750 mg PO QDAY #5 tablet 05/19/20 Unknown Rx lisinopriL [Zestril TAB] 10 mg PO QDAY #30 tablet 05/19/20 Unknown Rx metFORMIN [Glucophage] 850 mg PO BID #60 tablet 05/20/20 Unknown Rx Insulin NPH/Regular [NovoLIN 70/30] 28 unit SUB-Q BIDDIAB 30 Days 05/21/20 Unknown Rx Lispro Insulin [HumaLOG] 0 unit SUB-Q ACHS 30 Days 05/21/20 Unknown Rx ED Review of Systems ROS: Stated complaint: FLUID RETENTION/ABD PAIN Other details as noted in HPI Constitutional: diaphoresis, fever (?) Eyes: denies: eye pain ENT: denies: throat pain Respiratory: shortness of breath, SOB with exertion Cardiovascular: chest pain Endocrine: no symptoms reported Gastrointestinal: abdominal pain, nausea, vomiting Genitourinary: denies: dysuria Musculoskeletal: back pain Neurological: denies: headache Physical Exam - Physical Exam Vital Signs: Vital Signs 06/07/20 20:56 Temperature 98.8 F Pulse Rate 98 H Respiratory 17 Rate Blood Pressure 148/74 [left arm] O2 Sat by Pulse 98 Oximetry Physical Exam: GENERAL: The patient is well-developed well-nourished male lying on stretcher appearing to be in mild discomfort. [] HEENT: Normocephalic. Atraumatic. Extraocular motions are intact. Patient has moist mucous membranes. NECK: Supple. Trachea midline CHEST/LUNGS: Clear to auscultation. There is no respiratory distress noted. HEART/CARDIOVASCULAR: Regular. There is no tachycardia. There is no gallop rub or murmur. ABDOMEN: Abdomen is soft, nontender. Patient has normal bowel sounds. There is no abdominal distention. SKIN: There is no rash. There is 1+ bilateral lower edema. There is no diaphoresis. NEURO: The patient is awake, alert, and oriented. The patient is cooperative. The patient has no focal neurologic deficits. The patient has normal speech MUSCULOSKELETAL: There is no evidence of acute injury. ED Course Vital Signs 06/07/20 20:56 Temperature 98.8 F Pulse Rate 98 H Respiratory 17 Rate Blood Pressure 148/74 [left arm] O2 Sat by Pulse 98 Oximetry ED Medical Decision Making - Lab Data Result diagrams: 06/07/20 21:25 06/07/20 21:25 - EKG Data -: EKG Interpreted by Me EKG shows normal: sinus rhythm Rate: normal - EKG Data When compared to previous EKG there are: no significant change Interpretation: unchanged when compared t (05/13/2020) - Radiology Data Radiology results: report reviewed (Chest x-ray), image reviewed (Chest x-ray) interpreted by me: Chest x-ray-no definite focal infiltrates. No pneumothorax. No foreign body seen [facility], [address] [place] [address] XRay Report Signed Patient: DENISSE VENTURA MR#: [id number] : 1975 Acct:[id number] Age/Sex: 45 / M ADM Date: 06/07/20 Loc: ED Attending Dr: Ordering Physician: DHRUV NELSON MD Date of Service: 06/07/20 Procedure(s): XR chest 1V ap Accession Number(s): [id number] cc: DHRUV NELSON MD Fluoro Time In Minutes: CHEST 1 VIEW INDICATION: chest pain, shortness of breath COMPARISON: 05/14/2020 FINDINGS: SUPPORT DEVICES: None. HEART / MEDIASTINUM: No significant abnormality. LUNGS / PLEURA: No significant pulmonary or pleural abnormality. No pneumothorax. ADDITIONAL FINDINGS: IMPRESSION: 1. No acute cardiopulmonary disease Signer Name: Ilia Herrera MD Signed: 06/07/2020 9:53 PM Workstation Name: [id number] Transcribed By: KENNEDY Dictated By: Ilia Herrera MD Electronically Authenticated By: Ilia Herrera MD Signed Date/Time: 06/07/202152 DD/ 52 TD/TT: - Differential Diagnosis CHF exacerbation, ACS, pericarditis, pneumonia, bronchitis, Critical care attestation.: If time is entered above; I have spent that time in minutes in the direct care of this critically ill patient, excluding procedure time. ED Disposition Clinical Impression: Chest pain, Dyspnea Disposition: OP ADMIT IP TO THIS HOSP Is pt being admited?: Yes Does the pt Need Aspirin: Yes Condition: Fair Instructions: Nonspecific Chest Pain, Adult Time of Disposition: 22:28 (Hospitalist paged (Dr Luz)) Heart Score - HEART Score History: Moderately suspicious EKG: Normal Age: 45-65 Risk factors: > 3 risk factors or hx of atherosclerotic disease Troponin: < normal limit HEART Score: 4
[2020-06-07 21:36] LABS: Basophils # (Auto) 0.1 K/mm3 (0.0-0.1); Basophils % (Auto) 0.7 % (0.0-1.8); Eosinophils # (Auto) 0.6 K/mm3 (0.0-0.4); Eosinophils % (Auto) 6.3 % (0.0-4.3); Hematocrit 32.3 % (35.5-45.6); Lymphocytes # (Auto) 1.2 K/mm3 (1.2-5.4); Lymphocytes % (Auto) 12.4 % (13.4-35.0); Mean Corpuscular HGB Conc 34 % (32-34); Mean Corpuscular Volume 99 fl (84-94); Monocytes % (Auto) 10.1 % (0.0-7.3); Platelet Count 324 K/mm3 (140-440); Red Blood Count 3.28 M/mm3 (3.65-5.03); Red Cell Distribution Width 14.5 % (13.2-15.2)
[2020-06-07 21:48] LABS: INR 0.99 (0.87-1.13)
--- NOTE | 2020-06-07 21:58 | XRay Report ---
CHEST 1 VIEW INDICATION: chest pain, shortness of breath COMPARISON: 05/14/2020 FINDINGS: SUPPORT DEVICES: None. HEART / MEDIASTINUM: No significant abnormality. LUNGS / PLEURA: No significant pulmonary or pleural abnormality. No pneumothorax. ADDITIONAL FINDINGS: IMPRESSION: 1. No acute cardiopulmonary disease Signer Name: Ilia Herrera MD Signed: 06/07/2020 9:53 PM Workstation Name: [id number]
[2020-06-07 22:01] LABS: Alanine Aminotransferase 27 units/L (7-56); Albumin 3.5 g/dL (3.9-5); Blood Urea Nitrogen 5 mg/dL (9-20); Calcium 8.6 mg/dL (8.4-10.2); Hemolysis Index 7
[2020-06-07 22:09] LABS: BUN/Creatinine Ratio 8; Creatine Kinase MB < 1.0 ng/mL (0.0-4.0)
[2020-06-07] MEDS ORDERED: MAGNESIUM HYDROXIDE (MOM) ORAL LIQD UDC PO PRN (22:47)
[2020-06-07] MEDS ORDERED: traMADol 50 MG TAB PO PRN (22:47)
[2020-06-07] MEDS ORDERED: ONDANSETRON 4 MG/2 ML INJ IV PRN (22:47)
[2020-06-07] MEDS ORDERED: MORPHINE 4 MG/1 ML INJ IV PRN (22:47)
[2020-06-07] MEDS ORDERED: NITROGLYCERIN 0.4 MG TAB SUBL SL PRN (22:47)
[2020-06-07] MEDS ORDERED: DEXTROSE 50% IN WATER (25GM) 50 ML SYRINGE IV PRN (22:47)
[2020-06-07] MEDS ORDERED: ACETAMINOPHEN 325 MG TAB PO PRN ×2 (22:47)
--- NOTE | 2020-06-07 23:00 | History and Physical Report ---
History of Present Illness Date of examination: 06/07/20 Date of admission: 06/07/2020 Chief complaint: Shortness of breath Lower extremity swelling History of present illness: 45-year-old male with known history of hypertension, COPD, diabetes mellitus, and CHF presenting to the emergency room today complaining of shortness of breath and progressive swelling of his lower extremities. Patient was just seen in this hospital recently and discharged earlier this month with similar complaints. Indicates that his swelling is increased over the past 2 days. He has had significant worsening of shortness of breath and intermittent substernal chest pain. Chest pain is sharp in nature and he has had associated nausea and vomiting and occasional diaphoresis. Patient has had some productive cough over the past week. He has not had any fever. Sputum has been slightly greenish in color. On a scale of 10 chest pain was said to be about 7-8 over 10 in severity. Patient has been compliant with his medications. Work-up in the emergency room today reveals: Slightly elevated BNP of 547. Chest x-ray reveals no acute cardiopulmonary abnormality. EKG and troponin were unremarkable. Patient is being admitted for chest pain and CHF exacerbation. Past History Past Medical History: COPD, diabetes, heart failure, hypertension, other (Pulmonary Hypertension,) Past Surgical History: Other (Right Eye cyst removal,) Social history: smoking (Former smpoker), alcohol abuse Family history: no significant family history Medications and Allergies Allergies Allergy/AdvReac Type Severity Reaction Status Date / Time Iodinated Contrast Media Allergy Rash Verified 09/24/13 21:15 Home Medications Medication Instructions Recorded Confirmed Last Taken Type ALBUTEROL Inhaler(NF) [VENTOLIN 2 puff IH QID PRN #1 inha 04/25/18 06/07/20 Unknown Rx Inhaler(NF)] Albuterol Sulfate [Proair 90 mcg IH Q4HR PRN #2 aer.[email or web address] 05/19/20 06/07/20 Unknown Rx Respiclick] Famotidine [Pepcid] 20 mg PO BID #60 tablet 05/19/20 06/07/20 Unknown Rx Fluticasone [Flonase] 1 spray NS QDAY #1 bottle 05/19/20 06/07/20 Unknown Rx Folic Acid/Vit B Comp W-C [Renal 1 cap PO QDAY #30 capsule 05/19/20 06/07/20 Unknown Rx Caps] Ipratropium (Nf) [Atrovent HFA 2 puff IH Q6HR PRN #1 inha 05/19/20 06/07/20 Unknown Rx 17MCG/PUFF] Multivitamin Tab [Multiple Vitamin 1 each PO QDAY #30 tablet 05/19/20 06/07/20 Unknown Rx TAB (Theragran)] Pravastatin Sodium [Pravastatin] 10 mg PO QHS #30 tablet 05/19/20 06/07/20 Unknown Rx Thiamine [Vitamin B-1] 100 mg PO QDAY #30 tablet 05/19/20 06/07/20 Unknown Rx amLODIPine 5 mg PO QDAY #30 tablet 05/19/20 06/07/20 Unknown Rx lisinopriL [Zestril TAB] 10 mg PO QDAY #30 tablet 05/19/20 06/07/20 Unknown Rx metFORMIN [Glucophage] 850 mg PO BID #60 tablet 05/20/20 06/07/20 Unknown Rx Insulin NPH/Regular [NovoLIN 70/30] 28 unit SUB-Q BIDDIAB 30 Days 05/21/20 06/07/20 Unknown Rx Lispro Insulin [HumaLOG] 0 unit SUB-Q ACHS 30 Days 05/21/20 06/07/20 Unknown Rx Aspirin EC [Halfprin EC] 81 mg PO QDAY 06/07/20 06/07/20 Unknown History Review of Systems Constitutional: no fever, no chills Ears, nose, mouth and throat: no nasal congestion, no sore throat Cardiovascular: chest pain, edema, no palpitations Respiratory: shortness of breath, no cough Gastrointestinal: nausea, vomiting, no abdominal pain, no diarrhea Genitourinary Male: no dysuria, no hematuria, no flank pain, no nocturia Musculoskeletal: no neck pain, no low back pain Integumentary: no rash, no pruritis Neurological: no headaches, no confusion Psychiatric: no anxiety, no depression Endocrine: no polyphagia, no polydipsia, no polyuria, no nocturia Exam - Constitutional Vitals: Temp Pulse Resp BP Pulse Ox 98.8 F 98 H 22 125/77 93 06/07/20 20:56 06/07/20 21:00 06/07/20 21:00 06/07/20 22:30 06/07/20 22:30 General appearance: Present: no acute distress, well-nourished, obese - EENT Eyes: Present: PERRL, EOM intact. Absent: scleral icterus ENT: hearing intact, clear oral mucosa, dentition normal - Neck Neck: Present: supple, normal ROM - Respiratory Respiratory effort: normal Respiratory: bilateral: rales - Cardiovascular Rhythm: regular Heart Sounds: Present: S1 & S2. Absent: systolic murmur, diastolic murmur, rub, click - Extremities Extremities: no ischemia, pulses intact, pulses symmetrical, normal temperature, normal color, Full ROM Extremity abnormal: edema (3+ bilateral lower extremity edema) Peripheral Pulses: within normal limits - Abdominal General gastrointestinal: Present: soft, non-tender, non-distended, normal bowel sounds. Absent: mass - Integumentary Integumentary: Present: clear, warm, dry. Absent: rash - Musculoskeletal Musculoskeletal: strength equal bilaterally - Psychiatric Psychiatric: appropriate mood/affect, intact judgment & insight, memory intact, cooperative - Neurologic Neurologic: CNII-XII intact, no focal deficits, moves all extremities HEART Score - HEART Score History: Moderately suspicious EKG: Normal Age: 45-65 Risk factors: > 3 risk factors or hx of atherosclerotic disease Troponin: Troponin T < 0.010 ng/mL (0.00-0.029) 06/07/20 21:25 Troponin: < normal limit HEART Score: 4 Results - Labs CBC & Chem 7: 06/08/20 00:48 06/08/20 00:48 Labs: Abnormal lab results 06/07/20 06/07/20 Range/Units 21:25 21:25 RBC 3.28 L (3.65-5.03) M/mm3 Hgb 11.0 L (11.8-15.2) gm/dl Hct 32.3 L (35.5-45.6) % MCV 99 H (84-94) fl MCH 34 H (28-32) pg Lymph % (Auto) 12.4 L (13.4-35.0) % [place] % (Auto) 10.1 H (0.0-7.3) % Eos % (Auto) 6.3 H (0.0-4.3) % [place] # (Auto) 1.0 H (0.0-0.8) K/mm3 Eos # (Auto) 0.6 H (0.0-0.4) K/mm3 Seg Neutrophils % 70.5 H (40.0-70.0) % BUN 5 L (9-20) mg/dL Creatinine 0.6 L (0.8-1.3) mg/dL Glucose 148 H (75-100) mg/dL AST 47 H (5-40) units/L Alkaline Phosphatase 173 H (35-129) units/L Total Creatine Kinase 27 L (55-170) units/L Albumin 3.5 L (3.9-5) g/dL Assessment and Plan - Patient Problems (1) Chest pain Current Visit: No Status: Acute Plan to address problem: Patient admitted and placed on telemetry. Will check serial cardiac enzymes. Patient placed on daily aspirin, sublingual nitroglycerin and IV morphine as needed for chest pain. We will place consult to cardiology for evaluation. (2) CHF exacerbation Current Visit: No Status: Acute Plan to address problem: Patient placed on diuretics. Will monitor inputs and outputs and also monitor daily weight. Echo in 04/2020 reveals ejection fraction of 55 to 60%. (3) HTN (hypertension) Current Visit: No Status: Chronic Plan to address problem: Resume routine home medications and monitor vital signs closely. (4) Morbid obesity with BMI of 40.0-44.9, adult Current Visit: No Status: Chronic Plan to address problem: Lifestyle modification encouraged. We will place dietary consult. (5) Tobacco use Current Visit: No Status: Chronic Plan to address problem: Patient counseled on quitting tobacco abuse. We will place on nicotine patch as needed. (6) Diabetes mellitus Current Visit: Yes Status: Acute Plan to address problem: We will monitor Accu-Cheks closely. (7) DVT prophylaxis Current Visit: No Status: Acute Plan to address problem: Patient placed on subcutaneous Lovenox. (8) Full code status Current Visit: No Status: Acute Plan to address problem: Patient is full code.
[2020-06-07 23:01] LABS: Bilirubin,Urine NEG (Negative); Blood,Urine NEG (Negative); Color,Urine Yellow (Yellow); Mucus,Urine FEW /HPF; Protein,Urine <15 mg/dL mg/dL (Negative); Urobilinogen,Urine < 2.0 mg/dL (<2.0)
[2020-06-08 01:26] LABS: Basophils # (Auto) 0.1 K/mm3 (0.0-0.1); Basophils % (Auto) 0.6 % (0.0-1.8); Eosinophils # (Auto) 0.8 K/mm3 (0.0-0.4); Eosinophils % (Auto) 6.9 % (0.0-4.3); Hematocrit 32.2 % (35.5-45.6); Hemoglobin 10.9 gm/dl (11.8-15.2); Lymphocytes # (Auto) 1.5 K/mm3 (1.2-5.4); Lymphocytes % (Auto) 13.3 % (13.4-35.0); Mean Corpuscular HGB Conc 34 % (32-34); Mean Corpuscular Volume 98 fl (84-94); Monocytes # (Auto) 1.1 K/mm3 (0.0-0.8); Monocytes % (Auto) 10.2 % (0.0-7.3); Platelet Count 350 K/mm3 (140-440); Red Blood Count 3.28 M/mm3 (3.65-5.03); Red Cell Distribution Width 14.4 % (13.2-15.2)
[2020-06-08 02:24] LABS: Blood Urea Nitrogen 5 mg/dL (9-20); Calcium 8.9 mg/dL (8.4-10.2); Chol/HDL Ratio 4.61 %; HDL Cholesterol 31 mg/dL (40-59); Hemolysis Index 1; LDL Cholesterol,Direct 84 mg/dL (50-130)
[2020-06-08 02:25] LABS: BUN/Creatinine Ratio 10
[2020-06-08] MEDS ORDERED: NON-FORMULARY EACH (Albuterol Sulfate [Proair Respiclick] 90 MCG Aer.Pow.Ba) IH PRN (04:07)
[2020-06-08] MEDS ORDERED: ALBUTEROL 8.5 GM MDI INHALATION IH PRN (04:07)
[2020-06-08] MEDS ORDERED: DEXTROSE 50% IN WATER (25GM) 50 ML SYRINGE IV PRN (04:11)
[2020-06-08] MEDS ORDERED: ALBUTEROL 2.5 MG/3 ML NEBU IH PRN (04:34)
[2020-06-08] MEDS ORDERED: FUROSEMIDE 40 MG/4 ML INJ IV SCH (06:00)
[2020-06-08 08:05] LABS: Basophils # (Auto) 0.1 K/mm3 (0.0-0.1); Basophils % (Auto) 0.7 % (0.0-1.8); Eosinophils # (Auto) 0.7 K/mm3 (0.0-0.4); Hemoglobin 10.6 gm/dl (11.8-15.2); Lymphocytes # (Auto) 1.4 K/mm3 (1.2-5.4); Lymphocytes % (Auto) 13.5 % (13.4-35.0); Monocytes % (Auto) 9.7 % (0.0-7.3)
[2020-06-08 08:14] LABS: INR 1.11 (0.87-1.13)
[2020-06-08 08:15] LABS: Blood Urea Nitrogen 4 mg/dL (9-20); Calcium 8.5 mg/dL (8.4-10.2); Hemolysis Index 3
[2020-06-08 08:17] LABS: BUN/Creatinine Ratio 8
[2020-06-08 09:09] LABS: Hematocrit 30.9 % (35.5-45.6); Mean Corpuscular HGB Conc 34 % (32-34); Mean Corpuscular Volume 98 fl (84-94); Platelet Count 335 K/mm3 (140-440); Red Blood Count 3.15 M/mm3 (3.65-5.03); Red Cell Distribution Width 14.4 % (13.2-15.2)
[2020-06-08] MEDS: INSULIN LISPRO 100 UNIT/ML SUB-Q SCH ×2 (09:15→12:49)
--- NOTE | 2020-06-08 09:29 | Electrocardiograph Report ---
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
[2020-06-08] MEDS ORDERED: FAMOTIDINE 20 MG TAB PO SCH (10:00)
[2020-06-08] MEDS ORDERED: THIAMINE 100 MG TAB PO SCH (10:00)
[2020-06-08] MEDS ORDERED: metFORMIN 850 MG TAB PO SCH (10:00)
[2020-06-08] MEDS ORDERED: LISINOPRIL 10 MG TAB PO SCH (10:00)
[2020-06-08] MEDS ORDERED: amLODIPine 5 MG TAB PO SCH (10:00)
[2020-06-08] MEDS ORDERED: ASPIRIN EC 325 MG TAB PO SCH (10:00)
[2020-06-08] MEDS ORDERED: FLUTICASONE PROPIONATE NASAL SPRAY 16 GM NS SCH (10:00)
[2020-06-08] MEDS ORDERED: ASPIRIN EC 81 MG TAB PO SCH (10:00)
[2020-06-08] MEDS ORDERED: FOLIC ACID/VIT B COMP W-C 1 MG (RENAL CAPS) PO SCH (10:00)
[2020-06-08] MEDS ORDERED: MULTIVITAMINS ,THERAPEUTIC TAB PO SCH (10:00)
--- NOTE | 2020-06-08 12:25 | Consultation ---
History of Present Illness Consult date: 06/08/20 Consult reason: shortness of breath History of present illness: The patient is a 45-year-old man with morbid obesity, who weighs over 400 pounds. He has sleep apnea for which he uses a CPAP machine at home, and is reported with chronic alcohol abuse. As a result of his obesity and chronic lung disease, he has chronic fluid overload manifested by ascites and lower extremity edema. His ascites has often required paracentesis, most recently 2 weeks ago he had 3400 cc of fluid aspirated. His chronic ascites has been attributed to liver disease associated with his chronic alcoholism, and pulmonary disease associated with his severe sleep apnea. He obtains his outpatient care at the [facility] but has been managed in this hospital several times in the past year. An echocardiogram done last month showed normal left ventricular systolic function with ejection fraction 55 to 60%, no significant valvular lesions. EKG on this presentation is normal sinus rhythm with nonspecific ST and T wave abnormalities. Chest x-ray shows a normal-sized cardiac silhouette, no evidence of interstitial edema or heart failure. Past History Past Medical History: COPD, diabetes, heart failure, hypertension, other (Pulmonary Hypertension,) Past Surgical History: Other (Right Eye cyst removal,) Social history: smoking (Former smpoker), alcohol abuse Family history: no significant family history Medications and Allergies Allergies Allergy/AdvReac Type Severity Reaction Status Date / Time Iodinated Contrast Media Allergy Rash Verified 09/24/13 21:15 Home Medications Medication Instructions Recorded Confirmed Last Taken Type ALBUTEROL Inhaler(NF) [VENTOLIN 2 puff IH QID PRN #1 inha 04/25/18 06/07/20 Unknown Rx Inhaler(NF)] Albuterol Sulfate [Proair 90 mcg IH Q4HR PRN #2 aer.pow.ba 05/19/20 06/07/20 Unknown Rx Respiclick] Famotidine [Pepcid] 20 mg PO BID #60 tablet 05/19/20 06/07/20 Unknown Rx Fluticasone [Flonase] 1 spray NS QDAY #1 bottle 05/19/20 06/07/20 Unknown Rx Folic Acid/Vit B Comp W-C [Renal 1 cap PO QDAY #30 capsule 05/19/20 06/07/20 Unknown Rx Caps] Ipratropium (Nf) [Atrovent HFA 2 puff IH Q6HR PRN #1 inha 05/19/20 06/07/20 Unknown Rx 17MCG/PUFF] Multivitamin Tab [Multiple Vitamin 1 each PO QDAY #30 tablet 05/19/20 06/07/20 Unknown Rx TAB (Theragran)] Pravastatin Sodium [Pravastatin] 10 mg PO QHS #30 tablet 05/19/20 06/07/20 Unknown Rx Thiamine [Vitamin B-1] 100 mg PO QDAY #30 tablet 05/19/20 06/07/20 Unknown Rx amLODIPine 5 mg PO QDAY #30 tablet 05/19/20 06/07/20 Unknown Rx lisinopriL [Zestril TAB] 10 mg PO QDAY #30 tablet 05/19/20 06/07/20 Unknown Rx metFORMIN [Glucophage] 850 mg PO BID #60 tablet 05/20/20 06/07/20 Unknown Rx Insulin NPH/Regular [NovoLIN 70/30] 28 unit SUB-Q BIDDIAB 30 Days 05/21/2005/19 Unknown Rx Lispro Insulin [HumaLOG] 0 unit SUB-Q ACHS 30 Days 05/21/20 06/07/20 Unknown Rx Aspirin EC [Halfprin EC] 81 mg PO QDAY 06/07/20 06/07/20 Unknown History Active Meds: Active Medications Acetaminophen (Acetaminophen 325 Mg Tab) 650 mg PO Q4H PRN PRN Reason: Pain MILD(1-3)/Fever >100.5/MERAZ Albuterol (Albuterol 2.5 Mg/3 Ml Nebu) 2.5 mg IH QIDRT PRN PRN Reason: Shortness Of Breath Amlodipine Besylate (Amlodipine 5 Mg Tab) 5 mg PO QDAY [facility] Last Admin: 06/08/20 10:53 Dose: 5 mg Documented by: Aspirin (Aspirin Ec 81 Mg Tab) 81 mg PO QDAY [facility] Last Admin: 06/08/20 10:53 Dose: 81 mg Documented by: Dextrose (Dextrose 50% In Water (25gm) 50 Ml Syringe) 0 ml IV Q30MIN PRN; Protocol PRN Reason: Hypoglycemia Enoxaparin Sodium (Enoxaparin 40 Mg/0.4 Ml Inj) 40 mg SUB-Q QDAY@2200 S[place]; Protocol Famotidine (Famotidine 20 Mg Tab) 20 mg PO BID [facility] Last Admin: 06/08/20 10:53 Dose: 20 mg Documented by: Fluticasone Propionate (Fluticasone Propionate Nasal [place] 16 Gm) 50 mcg NS QDAY [facility] Last Admin: 06/08/20 09:18 Dose: 50 mcg Documented by: Furosemide (Furosemide 40 Mg/4 Ml Inj) 40 mg IV BID@0600,1800 [facility] Last Admin: 06/08/20 05:30 Dose: 40 mg Documented by: Insulin Human Lispro (Insulin Lispro 100 Unit/Ml) 0 unit SUB-Q ACHS [facility]; Protocol Last Admin: 06/08/20 09:15 Dose: Not Given Documented by: Lisinopril (Lisinopril 10 Mg Tab) 10 mg PO QDAY [facility] Last Admin: 06/08/20 10:54 Dose: 10 mg Documented by: Magnesium Hydroxide (Magnesium Hydroxide (Mom) Oral Liqd Udc) 30 ml PO Q4H PRN PRN Reason: Constipation Morphine Sulfate (Morphine 4 Mg/1 Ml Inj) 2 mg IV Q5MIN PRN PRN Reason: Chest Pain Multivit/Ca Carb/B Cmplx/FA/Prenat (Folic Acid/Vit B Comp W-C 1 Mg (Renal Caps)) 1 cap PO QDAY [facility] Last Admin: 06/08/20 10:53 Dose: 1 cap Documented by: Nitroglycerin (Nitroglycerin 0.4 Mg Tab Subl) 0.4 mg SL Q5M PRN PRN Reason: Chest Pain Ondansetron HCl (Ondansetron 4 Mg/2 Ml Inj) 4 mg IV Q8H PRN PRN Reason: Nausea And Vomiting Pravastatin Sodium (Pravastatin 20 Mg Tab) 10 mg PO QHS [facility] Sodium Chloride (Sodium Chloride 0.9% 10 Ml Flush Syringe) 10 ml IV BID [facility] Last Admin: 06/08/20 09:20 Dose: 10 ml Documented by: Sodium Chloride (Sodium Chloride 0.9% 10 Ml Flush Syringe) 10 ml IV PRN PRN PRN Reason: LINE FLUSH Last Admin: 06/08/20 05:32 Dose: 10 ml Documented by: Thiamine HCl (Thiamine 100 Mg Tab) 100 mg PO QDAY [facility] Last Admin: 06/08/20 10:53 Dose: 100 mg Documented by: Tramadol HCl (Tramadol 50 Mg Tab) 50 mg PO Q6H PRN PRN Reason: Pain, Moderate (4-6) Review of Systems Cardiovascular: edema, shortness of breath, no chest pain, no orthopnea, no palpitations, no rapid/irregular heart beat, no syncope, no lightheadedness Physical Examination Vital Signs Temp Pulse Resp BP Pulse Ox 98.8 F 98 H 17 148/74 98 06/07/20 20:56 06/07/20 20:56 06/07/20 20:56 06/07/20 20:56 06/07/20 20:56 General appearance: no acute distress, obese (Morbidly obese, weighs over 400 pounds) HEENT: Positive: PERRL Neck: Positive: neck supple Cardiac: Positive: Reg Rate and Rhythm Lungs: Positive: Decreased Breath Sounds Neuro: Positive: Grossly Intact Abdomen: Positive: Soft Male genitourinary: Positive: deferred Skin: Positive: Clear Extremities: Present: +1 Edema Results 06/08/20 07:03 06/08/20 07:03 Cardiac Enzymes 06/07/20 Range/Units 21:25 AST 47 H (5-40) units/L CK-MB (CK-2) < 1.0 (0.0-4.0) ng/mL Coagulation 06/07/20 06/08/20 Range/Units 21:25 07:03 PT 12.9 14.1 (12.2-14.9) Sec. INR 0.99 1.11 (0.87-1.13) Lipids 06/08/20 Range/Units 00:48 Triglycerides 200 H (2-149) mg/dL Cholesterol 143 (50-199) mg/dL HDL Cholesterol 31 L (40-59) mg/dL Cholesterol/HDL Ratio 4.61 % CBC 06/07/20 06/08/20 06/08/20 Range/Units 21:25 00:48 07:03 WBC 10.0 11.1 H 10.5 (4.5-11.0) K/mm3 RBC 3.28 L 3.28 L 3.15 L (3.65-5.03) M/mm3 Hgb 11.0 L 10.9 L 10.6 L (11.8-15.2) gm/dl Hct 32.3 L 32.2 L 30.9 L (35.5-45.6) % Plt Count 324 350 335 (140-440) K/mm3 Lymph # (Auto) 1.2 1.5 1.4 (1.2-5.4) K/mm3 [place] # (Auto) 1.0 H 1.1 H 1.0 H (0.0-0.8) K/mm3 Eos # (Auto) 0.6 H 0.8 H 0.7 H (0.0-0.4) K/mm3 Baso # (Auto) 0.1 0.1 0.1 (0.0-0.1) K/mm3 Comprehensive Metabolic Panel 06/07/20 06/08/20 06/08/20 Range/Units 21:25 00:48 07:03 Sodium 142 137 138 (137-145) mmol/L Potassium 4.0 3.4 L 3.1 L (3.6-5.0) mmol/L Chloride 101.8 99.2 99.7 (98-107) mmol/L Carbon Dioxide 27 23 25 (22-30) mmol/L BUN 5 L 5 L 4 L (9-20) mg/dL Creatinine 0.6 L 0.5 L 0.5 L (0.8-1.3) mg/dL Glucose 148 H 151 H 141 H (75-100) mg/dL Calcium 8.6 8.9 8.5 (8.4-10.2) mg/dL AST 47 H (5-40) units/L ALT 27 (7-56) units/L Alkaline Phosphatase 173 H (35-129) units/L Total Protein 6.4 (6.3-8.2) g/dL Albumin 3.5 L (3.9-5) g/dL EKG interpretations - Telemetry EKG Rhythm: Sinus Rhythm Assessment and Plan - Patient Problems (1) Anasarca Current Visit: No Status: Acute Plan to address problem: Patient has chronic ascites, chronic lower extremity edema. This is in the setting of morbid obesity, chronic sleep apnea, chronic alcohol abuse and liver disease. Continue management with diuretics as tolerated, defer to internal medicine and gastroenterology for further management of patient's liver disease and chronic ascites.
--- NOTE | 2020-06-08 13:16 | Discharge Summary ---
Providers - Providers Date of Admission: 06/07/20 22:31 Date of discharge: 06/08/20 Attending physician: AR GRIMALDO 06/07/20 Consult to Cardiac Rehabilitation [CONS] Routine Reason For Exam: Phase I 06/07/20 22:47 Consult to Dietitian/Nutrition [CONS] Routine Physician Instructions: Reason For Exam: Reason for Consult: Diet education Consult to Physician [CONS] Routine Comment: Consulting Provider: ANDRES HALE Physician Instructions: Reason For Exam: chest pain, CHF exac. 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 Patient was just seen in this hospital recently and discharged earlier this month with similar complaints. Indicates that his swelling is increased over the past 2 days. He has had significant worsening of shortness of breath and intermittent substernal chest pain. Chest pain is sharp in nature and he has had associated nausea and vomiting and occasional diaphoresis. Patient has had some productive cough over the past week. He has not had any fever. Sputum has been slightly greenish in color. On a scale of 10 chest pain was said to be about 7-8 over 10 in severity. Patient has been compliant with his medications. Work-up in the emergency room today reveals: Slightly elevated BNP of 547. Chest x-ray reveals no acute cardiopulmonary abnormality. EKG and troponin were unremarkable. Patient is being admitted for chest pain and CHF exacerbation. Assessment and Plan - Patient Problems (1) Chest pain Current Visit: No Status: Acute Plan to address problem: Stress test could not be done because of his weight and constant movement His troponins are negative We will follow with cardiology as outpatient (2) CHF exacerbation Current Visit: No Status: Acute Plan to address problem: The patient is a 45-year-old man with morbid obesity, who weighs over 400 pounds. He has sleep apnea for which he uses a CPAP machine at home, and is reported with chronic alcohol abuse. As a result of his obesity and chronic lung disease, he has chronic fluid overload manifested by ascites and lower extremity edema. His ascites has often required paracentesis, most recently 2 weeks ago he had 3400 cc of fluid aspirated. His chronic ascites has been attributed to liver disease associated with his chronic alcoholism, and pulmonary disease associated with his severe sleep apnea. He obtains his outpatient care at the [facility] but has been managed in this hospital several times in the past year. An echocardiogram done last month showed normal left ventricular systolic function with ejection fraction 55 to 60%, no significant valvular lesions. EKG on this presentation is normal sinus rhythm with nonspecific ST and T wave abnormalities. Chest x-ray shows a normal-sized cardiac silhouette, no evidence of interstitial edema or heart failure. We will discharge on diuretics with Zaroxolyn 30 minutes before the Lasix to potentiate the Lasix affect Ascites and pedal edema secondary to pulmonary hypertension and alcoholism (3) HTN (hypertension) Current Visit: No Status: Chronic Plan to address problem: Resume routine home medications and monitor vital signs closely. (4) Morbid obesity with BMI of 40.0-44.9, adult Current Visit: No Status: Chronic Plan to address problem: Patient was counseled to see bariatric surgery (5) Tobacco use Current Visit: No Status: Chronic Plan to address problem: Patient counseled on quitting tobacco abuse. We will place on nicotine patch as needed. 6 )EtOH dependence Patient counseled about alcoholism Patient to follow-up with alcohol rehab 7)Ascites Diuretics for now Disposition: DC-01 TO HOME OR SELFCARE Final Discharge Diagnosis (Prints w/discharge instructions): Acute coronary syndrome. CHF exacerbation. Pulmonary hypertension. Ascites. Pedal edema Time spent for discharge: 35 minutes - Discharge Diagnoses (1) Anasarca Status: Acute (2) CHF exacerbation Status: Acute Core Measure Documentation - Palliative Care Palliative Care/ Comfort Measures: Not Applicable - Core Measures Any of the following diagnoses?: heart failure - Heart Failure Discharge Requirements JENN/ARB for LVSD if EF <40%: Yes Beta liban at discharge: Yes Exam - Constitutional Vitals: Temp Pulse Resp BP Pulse Ox 98.4 F 106 H 18 141/69 97 06/08/20 07:24 06/08/20 08:58 06/08/20 07:24 06/08/20 07:24 06/08/20 12:00 General appearance: Present: no acute distress, well-nourished - EENT Eyes: Present: PERRL ENT: hearing intact, clear oral mucosa - Neck Neck: Present: supple, normal ROM - Respiratory Respiratory effort: normal Respiratory: bilateral: CTA - Cardiovascular Heart rate: 78 Rhythm: regular Heart Sounds: Present: S1 & S2. Absent: rub, click - Extremities Extremities: pulses symmetrical, No edema Extremity abnormal: other (Bilateral pedal edema 3+) Peripheral Pulses: within normal limits - Abdominal General gastrointestinal: Present: soft, non-tender, distended, normal bowel sounds, other (Ascites plus plus) Male genitourinary: Present: normal - Integumentary Integumentary: Present: clear, warm, dry - Musculoskeletal Musculoskeletal: gait normal, strength equal bilaterally - Psychiatric Psychiatric: appropriate mood/affect, intact judgment & insight - Neurologic Neurologic: CNII-XII intact, moves all extremities Plan Activity: no restrictions Diet: low salt Special Instructions: restrict fluid intake to (1.5 L/day), other Follow up with: PRIMARY CAREMD [Primary Care Provider] - 7 Days SAI BERG MD [Staff Physician] - 7 Days
[2020-06-08 15:00] VITALS: BP 113/51
[2020-06-08] MEDS ORDERED: PRAVASTATIN 20 MG TAB PO SCH (22:00)
[2020-06-08] MEDS ORDERED: ENOXAPARIN 40 MG/0.4 ML INJ SUB-Q SCH (22:00)
--- NOTE | 2020-06-11 10:55 | Electrocardiograph Report ---
[facility] Test Date: 2020-06-08 Test Time: 12:01:01 Pat Name: DENISSE VENTURA Department: Room: A487 1 Gender: M Release Manager: CASSANDRA : 1975 Requested By: INA JARRETT Order Number: [id number] Reading MD: Khoa James Measurements Intervals [place] Rate: 96 P: 77 [place]: 184 QRS: 79 QRSD: 99 T: 108 QT: 350 QTc: 443 Interpretive Statements Sinus rhythm Ventricular premature complex Nonspecific T abnormalities, lateral leads Compared to ECG 06/07/2020 22:22:26 Ventricular premature complex(es) now present T-wave abnormality now present Right-axis deviation no longer present Electronically Signed On 06-11-2020 7:55:12 PDT by Khoa James
== END 2020-06-08 15:40 | disposition home or self-care (01) ==
LOC: ED 20:46 → 4A 22:31
PROVIDERS: ADMIT Internal Medicine Geriatric Medicine; ATTEND Internal Medicine
DX: I11.0 Hypertensive heart disease with heart failure (principal); I50.9 Heart failure, unspecified; R07.89 Other chest pain; E66.01 Morbid (severe) obesity due to excess calories; E11.9 Type 2 diabetes mellitus without complications; J44.9 Chronic obstructive pulmonary disease, unspecified; R06.00 Dyspnea, unspecified; R18.8 Other ascites; F10.129 Alcohol abuse with intoxication, unspecified; Z68.43 Body mass index [BMI] 50.0-59.9, adult; Z98.890 Other specified postprocedural states; Z87.891 Personal history of nicotine dependence; Z79.4 Long term (current) use of insulin; Z79.82 Long term (current) use of aspirin
CPT/HCPCS: 36415; 71045; 80048; 80053; 80061; 81001; 82550; 82553; 82962; 83880; 84484; 85025; 85610; 93005; 94640; 96372; 96374; 96375; 99285; G0378; J1940; J2405; J3010; J1815

== ENCOUNTER 2020-07-15 13:12 | Emergency (ER) | payer OTHER ==
--- NOTE | 2020-07-15 17:11 | Event Note ---
ED Screening Note ED Screening Note: Patient is a 45-year-old male presents emergency room complaints of an infection to his bilateral lower extremities that initially began on May 22 He states it has been worsening and is now traveling down the legs He states he was released from the hospital on May 22 He states that he has been on antibiotics for approximately 1 week due to a ingrown hair on the testicle, he states that improved but he has had worsening of his infection of his legs On exam there is significant induration and cellulitis and appears to be lymphadenitis of the bilateral lower extremities This initial assessment/diagnostic orders/clinical plan/treatment(s) is/are subject to change based on patients health status, clinical progression and re- assessment by fellow clinical providers in the ED. Further treatment and workup at subsequent clinical providers discretion. Patient/guardian urged not to elope from the ED as their condition may be serious if not clinically assessed and managed. Initial orders include: Labs, ultrasound, antibiotics
[2020-07-15] MEDS ORDERED: VANCOMYCIN 2,000 MG in SODIUM CHLORIDE 0.9% 500 ML 500 ML IV ONE (18:00)
[2020-07-15] MEDS ORDERED: VANCOMYCIN PHARMACY TO DOSE IV SCH (18:00)
[2020-07-15 18:44] LABS: Basophils # (Auto) 0.1 K/mm3 (0.0-0.1); Basophils % (Auto) 0.5 % (0.0-1.8); Eosinophils # (Auto) 0.6 K/mm3 (0.0-0.4); Eosinophils % (Auto) 4.9 % (0.0-4.3); Hematocrit 32.5 % (35.5-45.6); Hemoglobin 11.2 gm/dl (11.8-15.2); Lymphocytes # (Auto) 2.1 K/mm3 (1.2-5.4); Lymphocytes % (Auto) 17.3 % (13.4-35.0); Mean Corpuscular HGB Conc 34 % (32-34); Mean Corpuscular Volume 93 fl (84-94); Monocytes # (Auto) 0.7 K/mm3 (0.0-0.8); Platelet Count 440 K/mm3 (140-440); Red Cell Distribution Width 14.7 % (13.2-15.2)
[2020-07-15 18:50] LABS: Alanine Aminotransferase 33 units/L (7-56); Albumin 4.8 g/dL (3.9-5); BUN/Creatinine Ratio 29; Blood Urea Nitrogen 23 mg/dL (9-20); Calcium 10.3 mg/dL (8.4-10.2); Hemolysis Index 1
--- NOTE | 2020-07-15 19:16 | Vascular Lab Report ---
DUPLEX DOPPLER LOWER EXTREMITY VEINS, BILATERAL INDICATION / CLINICAL INFORMATION: Bilateral lower extremity edema and pain, lymph infection. TECHNIQUE: Duplex doppler imaging was performed through the veins of both lower extremities using venous jasson brittany and other maneuvers. COMPARISON: None available. FINDINGS: Right Common Femoral vein: Negative. Right Femoral vein: Negative. Right Popliteal vein: Negative. Right Calf veins: Negative. Left Common Femoral vein: Negative. Left Femoral vein: Negative. Left Popliteal vein: Negative. Left Calf veins: Negative. Additional findings: None. IMPRESSION: 1. No sonographic evidence for DVT in either lower extremity. Signer Name: Jackson Farias MD Signed: 07/15/2020 7:11 PM Workstation Name: [email or web address]
--- NOTE | 2020-07-15 23:36 | Emergency Department Report ---
ED General Adult HPI - General Chief complaint: Pain General Stated complaint: HIP INJURY Time Seen by Provider: 07/15/20 17:09 Source: patient Mode of arrival: Ambulatory Limitations: No Limitations - History of Present Illness Initial comments: Patient is 45 years old morbidly obese male with history of obstructive sleep apnea, congestive heart failure and hypertension. [facility] Patient presented to the ER complaining of bilateral lower extremity swelling and redness for approximately 2month. Patient is pointing to swelling and d iscoloration to hip area on both sides. Patient denied any fever or chills. He also denied any increased shortness of breath or difficulty breathing. No chest pain. Patient stated that he is currently taking antibiotic for his genital infection. He stated that he is taking Keflex for 10 days and he supposed to finish it in 6 days. -: month(s) Location: pelvis, lower extremity Severity scale (0 -10): 3 Consistency: constant Associated Symptoms: denies other symptoms - Related Data Previous Rx's Medication Instructions Recorded Last Taken Type ALBUTEROL Inhaler(NF) [VENTOLIN 2 puff IH QID PRN #1 inha 04/25/18 Unknown Rx Inhaler(NF)] Fluticasone [Flonase] 1 spray NS QDAY #1 bottle 05/19/20 Unknown Rx Folic Acid/Vit B Comp W-C [Renal 1 cap PO QDAY #30 capsule 05/19/20 Unknown Rx Caps] Multivitamin Tab [Multiple Vitamin 1 each PO QDAY #30 tablet 05/19/20 Unknown Rx TAB (Theragran)] metFORMIN [Glucophage] 850 mg PO BID #60 tablet 05/20/20 Unknown Rx Lispro Insulin [HumaLOG] 0 unit SUB-Q ACHS 30 Days 05/21/20 Unknown Rx Albuterol Sulfate [Proair 90 mcg IH Q4HR PRN #2 aer.pow.ba 06/08/20 Unknown Rx Respiclick] Aspirin EC [Halfprin EC] 81 mg PO QDAY #100 06/08/20 Unknown Rx Famotidine [Pepcid] 20 mg PO BID #60 tablet 06/08/20 Unknown Rx Furosemide [Lasix TAB] 40 mg PO BID #60 tablet 06/08/20 Unknown Rx Insulin NPH/Regular [NovoLIN 70/30] 28 unit SUB-Q BIDDIAB 30 Days #2 06/08/20 Unknown Rx vial Ipratropium (Nf) [Atrovent HFA 2 puff IH Q6HR PRN #1 inha 06/08/20 Unknown Rx 17MCG/PUFF] LORazepam [Ativan] 0.5 mg PO BID #20 tab 06/08/20 Unknown Rx Potassium Chloride [K-Dur] 20 meq PO BID #60 tab 06/08/20 Unknown Rx Pravastatin Sodium [Pravastatin] 10 mg PO QHS 30 Days #30 tablet 06/08/20 Unknown Rx Thiamine [Vitamin B-1] 100 mg PO QDAY #100 tablet 06/08/20 Unknown Rx amLODIPine 5 mg PO QDAY #30 tablet 06/08/20 Unknown Rx lisinopriL [Zestril TAB] 10 mg PO QDAY #30 tablet 06/08/20 Unknown Rx metOLazone [Zaroxolyn] 5 mg PO BID #60 tablet 06/08/20 Unknown Rx Allergies Allergy/AdvReac Type Severity Reaction Status Date / Time Iodinated Contrast Media Allergy Rash Verified 07/15/20 16:48 ED Review of Systems ROS: Stated complaint: HIP INJURY Other details as noted in HPI Comment: All other systems reviewed and negative Constitutional: denies: chills, fever Respiratory: shortness of breath (chronic). denies: cough, orthopnea, SOB with exertion, SOB at rest Gastrointestinal: denies: abdominal pain, nausea, vomiting Skin: lesions Neurological: denies: headache, weakness ED Past Medical Hx - Past Medical History Hx Hypertension: Yes Hx Congestive Heart Failure: Yes Hx Diabetes: Yes Hx Asthma: No Hx COPD: Yes (No home O2) Additional medical history: Pulmonary hypertension - Surgical History Additional Surgical History: Cyst removed from eye - Social History Smoking Status: Former Smoker Substance Use Type: None - Medications Home Medications: Home Medications Medication Instructions Recorded Confirmed Last Taken Type ALBUTEROL Inhaler(NF) [VENTOLIN 2 puff IH QID PRN #1 inha 04/25/18 06/07/20 Unknown Rx Inhaler(NF)] Fluticasone [Flonase] 1 spray NS QDAY #1 bottle 05/19/20 06/07/20 Unknown Rx Folic Acid/Vit B Comp W-C [Renal 1 cap PO QDAY #30 capsule 05/19/20 06/07/20 Unknown Rx Caps] Multivitamin Tab [Multiple Vitamin 1 each PO QDAY #30 tablet 05/19/20 06/07/20 Unknown Rx TAB (Theragran)] metFORMIN [Glucophage] 850 mg PO BID #60 tablet 05/20/20 06/07/20 Unknown Rx Lispro Insulin [HumaLOG] 0 unit SUB-Q ACHS 30 Days 05/21/20 06/07/20 Unknown Rx Albuterol Sulfate [Proair 90 mcg IH Q4HR PRN #2 aer.pow.ba 06/08/20 Unknown Rx Respiclick] Aspirin EC [Halfprin EC] 81 mg PO QDAY #100 06/08/20 Unknown Rx Famotidine [Pepcid] 20 mg PO BID #60 tablet 06/08/20 Unknown Rx Furosemide [Lasix TAB] 40 mg PO BID #60 tablet 06/08/20 Unknown Rx Insulin NPH/Regular [NovoLIN 70/30] 28 unit SUB-Q BIDDIAB 30 Days #2 06/08/20 Unknown Rx vial Ipratropium (Nf) [Atrovent HFA 2 puff IH Q6HR PRN #1 inha 06/08/20 Unknown Rx 17MCG/PUFF] LORazepam [Ativan] 0.5 mg PO BID #20 tab 06/08/20 Unknown Rx Potassium Chloride [K-Dur] 20 meq PO BID #60 tab 06/08/20 Unknown Rx Pravastatin Sodium [Pravastatin] 10 mg PO QHS 30 Days #30 tablet 06/08/20 Unknown Rx Thiamine [Vitamin B-1] 100 mg PO QDAY #100 tablet 06/08/20 Unknown Rx amLODIPine 5 mg PO QDAY #30 tablet 06/08/20 Unknown Rx lisinopriL [Zestril TAB] 10 mg PO QDAY #30 tablet 06/08/20 Unknown Rx metOLazone [Zaroxolyn] 5 mg PO BID #60 tablet 06/08/20 Unknown Rx ED Physical Exam - General Limitations: No Limitations General appearance: alert, in no apparent distress - Head Head exam: Present: atraumatic, normocephalic, normal inspection - Eye Eye exam: Present: normal appearance, PERRL - ENT ENT exam: Present: normal exam, normal orophraynx, mucous membranes moist - Neck Neck exam: Present: normal inspection, full ROM. Absent: tenderness, meningismus - Respiratory Respiratory exam: Present: normal lung sounds bilaterally - Cardiovascular Cardiovascular Exam: Present: regular rate, normal rhythm, normal heart sounds - GI/Abdominal GI/Abdominal exam: Present: soft, normal bowel sounds. Absent: distended, tenderness, guarding, rebound, rigid, organomegaly, mass, bruit, pulsatile mass, hernia - Extremities Exam Extremities exam: Present: full ROM. Absent: tenderness, calf tenderness - Back Exam Back exam: Present: normal inspection, full ROM. Absent: CVA tenderness (R), CVA tenderness (L) - Neurological Exam Neurological exam: Present: alert, oriented X3, CN II-XII intact. Absent: motor sensory deficit - Psychiatric Psychiatric exam: Present: normal mood - Skin Skin exam: Present: warm, dry, intact, abrasion, ecchymosis ED Course Vital Signs 07/15/20 07/15/20 16:49 23:26 Temperature 98.6 F 98.2 F Pulse Rate 100 H 82 Respiratory 20 16 Rate Blood Pressure 147/100 Blood Pressure 132/48 [Left] O2 Sat by Pulse 96 100 Oximetry ED Medical Decision Making - Lab Data Result diagrams: 07/15/20 17:34 07/15/20 17:34 - Radiology Data Radiology results: report reviewed - Medical Decision Making Patient is 45 years old morbidly obese male with history of obstructive sleep apnea, congestive heart failure and hypertension. [facility] Patient presented to the ER complaining of bilateral lower extremity swelling and redness for approximately 2month. Patient is pointing to swelling and discoloration to hip area on both sides. Patient denied any fever or chills. He also denied any increased shortness of breath or difficulty breathing. No chest pain. Patient stated that he is currently taking antibiotic for his genital infection. He stated that he is taking Keflex for 10 days and he supposed to finish it in 6 days. Labs reviewed and is unremarkable except for mild leukocytosis. No evidence of acute CHF. Doppler ultrasound is negative for DVT. When I examined the area that the patient is pointing to the bilateral hip area it looks like most likely pressure ulcer from probably laying on it for a long time however there is no breaking in the skin. I advised the patient to return [id number] every 2 hours. I do not see any evidence of infection or cellulitis or abscess at this moment however patient advised to continue his current antibiotic and to return to the ER if he develop any new symptoms. Critical care attestation.: If time is entered above; I have spent that time in minutes in the direct care of this critically ill patient, excluding procedure time. ED Disposition Clinical Impression: Total body pain, Pressure ulcer Disposition: -01 TO HOME OR SELFCARE Is pt being admited?: No Condition: Stable Instructions: Preventing Pressure Injuries, Acute Pain, Adult Referrals: PRIMARY CARE, [Primary Care Provider] - 3-5 Days
[2020-07-15 23:45] VITALS: BP 132/62
== END 2020-07-15 23:46 | disposition home or self-care (01) ==
LOC: ED 13:12
DX: L89.90 Pressure ulcer of unspecified site, unspecified stage (principal); R52 Pain, unspecified; E11.9 Type 2 diabetes mellitus without complications; J44.9 Chronic obstructive pulmonary disease, unspecified; I11.0 Hypertensive heart disease with heart failure; I50.9 Heart failure, unspecified; G47.33 Obstructive sleep apnea (adult) (pediatric); Z87.891 Personal history of nicotine dependence; Z79.899 Other long term (current) drug therapy; Z91.041 Radiographic dye allergy status; Z98.890 Other specified postprocedural states
CPT/HCPCS: 36415; 80053; 82140; 83880; 85025; 87040; 93970; 99284; J3370; J7040